=== PATIENT | male | born 1965 | race African-American/Black ===

== ENCOUNTER 2016-07-09 08:25 | Inpatient (IN) | payer OTHER ==
[2016-07-09 09:14] VITALS: BMI 23.6
--- NOTE | 2016-07-09 12:39 | HP ---
CIWA Score - CIWA Score Nausea/Vomitin-Int. Nausea w/Dry Heave Muscle Tremors: 4-Moderate,w/Arms Extend Anxiety: 4-Mod. Anxious/Guarded Agitation: 4-Moderately Restless Paroxysmal Sweats: 1-Minimal Palms Moist Orientation: 0-Oriented Tacttile Disturbances: 3-Moderate Itch/Numb/Burn Auditory Disturbances: 0-None Visual Disturbances: 0-None Headache: 1-Very Mild CIWA-Ar Total Score: 21 Admission ROS S - HPI Chief Complaint: DETOX TX FOR ALCOHOL DEPENDENCE Allergies/Adverse Reactions: Allergies Allergy/AdvReac Type Severity Reaction Status Date / Time sulfamethoxazole Allergy Severe Hives Verified 07/09/16 10:06 [From Bactrim] trimethoprim [From Bactrim] Allergy Severe Hives Verified 07/09/16 10:06 Fish Containing Products Allergy Swelling Verified 07/09/16 10:07 History of Present Illness: 51 Y/O AA/MALE WITH A HX OF ALCOHOL, COCAINE AND MARIJUANA DEPENDENCE SEEKING DETOX TX. Exam Limitations: No Limitations - Ebola screening Have you traveled outside of the country in the last 21 days: No Have you had contact with anyone from an Ebola affected area: No Have you been sick,other than usual withdrawal symptoms: No - Review of Systems Constitutional: Chills, Loss of Appetite, Night Sweats, Changes in sleep, Unintentional Wgt. Loss EENT: reports: Blurred Vision, Tearing (ALLERGIES HX--USES VISINE ALLERGY DROPS) , Nose Congestion Respiratory: reports: Shortness of Breath (HX ASTHMA), Wheezing Cardiac: reports: Lightheadedness GI: reports: Diarrhea, Nausea, Poor Appetite : reports: Frequency Musculoskeletal: reports: Back Pain, Joint Pain, Muscle Pain Integumentary: reports: Rash (STOMACH AND BACK- USES TRIAMCINOLONE OINTMENT) Neuro: reports: Headache, Numbness, Tingling, Tremors, Unsteady Gait, Dizziness Endocrine: reports: No Symptoms Reported Hematology: reports: Anemia Psychiatric: reports: Orientated x3, Anxious Other Systems: Reviewed and Negative Patient History - Patient Medical History Hx Anemia: Yes (NOT CURRENTLY ON MEDS) Hx Asthma: Yes (MDI) Hx Chronic Obstructive Pulmonary Disease (COPD): No Hx Cancer: No Hx Cardiac Disorders: Yes (CAD-stent x2; S/P [place] ) Hx Congestive Heart Failure: No Hx Hypertension: No Hx Hypercholesterolemia: No Hx Pacemaker: No HX Cerebrovascular Accident: No Hx Seizures: No Hx Dementia: No Hx Diabetes: No Hx Gastrointestinal Disorders: No Hx Liver Disease: No Hx Genitourinary Disorders: No Hx Sexually Transmitted Disorders: No Hx Renal Disease (ESRD): No Hx Thyroid Disease: No Hx Human Immunodeficiency Virus (HIV): Yes (12/2000; ON MED) Hx Hepatitis C: No Hx Depression: No Hx Suicide Attempt: No Hx Bipolar Disorder: No Hx Schizophrenia: No - Patient Surgical History Past Surgical History: Yes Hx Neurologic Surgery: No Hx Cataract Extraction: No Hx Cardiac Surgery: Yes (STENT X2) Hx Lung Surgery: No Hx Breast Surgery: No Hx Breast Biopsy: No Hx Abdominal Surgery: No Hx Appendectomy: No Hx Cholecystectomy: No Hx Genitourinary Surgery: No Hx Section: No Hx Orthopedic Surgery: No Anesthesia Reaction: No - PPD History Previous Implant?: Yes Documented Results: Negative w/proof Implanted On Prior [facility] Admission?: Yes Date: 01/09/15 Results: 0 mm PPD to be Administered?: Yes - Reproductive History Patient is a Female of Child Bearing Age (11 -55 yrs old): No (MALE) - Smoking Cessation Smoking history: Never smoked Have you smoked in the past 12 months: No Aproximately how many cigarettes per day: 0 Hx Chewing Tobacco Use: No Initiated information on smoking cessation: No - Substances Abused Crack Route: Smoking Frequency: 3-6 times per week Amount used: $75-100 Age of first use: 39 Date of Last Use: 07/08/16 Alcohol-vodka Route: Oral Frequency: Daily Amount used: 1 1/2 qts. Age of first use: 14 Date of Last Use: 07/08/16 Marijuana Route: Smoking Frequency: Daily Amount used: $10 Age of first use: 41 Date of Last Use: 07/08/16 Family Disease History - Family Disease History Family Disease History: Diabetes: Mother (CA survivor..alive), Heart Disease: Father (), Mother, Sister (HTN), CA: Mother Admission Physical Exam BHS - Vital Signs Vital Signs: Vital Signs - 24 hr 07/09/16 09:13 Temperature 97.5 F L Pulse Rate 90 Respiratory 20 Rate Blood Pressure 113/85 - Physical General Appearance: Yes: Moderate Distress, Irritable, Anxious HEENTM: Yes: EOMI, Normocephalic, DANIELE, Pharynx Normal Respiratory: Yes: Chest Non-Tender, Lungs Clear, Normal Breath Sounds, No Respiratory Distress Neck: Yes: Supple, Trachea in good position Breast: Yes: Breast Exam Deferred Cardiology: Yes: Regular Rhythm, Regular Rate, S1, S2 Abdominal: Yes: Normal Bowel Sounds, Non Tender, Flat, Soft Genitourinary: Yes: Other Back: Yes: Within Normal Limits Musculoskeletal: Yes: full range of Motion, Gait Steady 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, Fully Oriented, Alert, Motor Strength 5/5 Integumentary: Yes: Dry, Warm Lymphatic: Yes: Within Normal Limits - Diagnostic (1) Alcohol dependence with uncomplicated withdrawal Status: Acute (2) Acquired immune deficiency syndrome (AIDS) Status: Chronic Comment: since 2000 (3) Asthma Status: Chronic Qualifiers: Asthma severity: mild persistent Asthma complication type: uncomplicated Qualified Code(s): J45.30 - Mild persistent asthma, uncomplicated (4) Cocaine dependence Status: Chronic Qualifiers: Substance use status: uncomplicated Qualified Code(s): F14.20 - Cocaine dependence, uncomplicated (5) Dry skin dermatitis Status: Chronic Comment: hydrocortison - itching (6) Rash of back Status: Chronic (7) S/P angioplasty with stent Status: Chronic (8) Status post myocardial infarction Status: Resolved (9) Cannabis dependence Status: Acute (10) History of anemia Status: Acute Cleared for Admission [facility] - Detox or Rehab [facility] Level of Care: Medically Managed Detox Regimen/Protocol: Librium [facility] Breath Alcohol Content Breath Alcohol Content: 0 Urine Drug Screen - Results Drug Screen Negative: No Urine Drug Screen Results: THC-Marijuana, PORFIRIO-Cocaine
[2016-07-09] MEDS ORDERED: ACETAMINOPHEN 325 MG TABLET (FP) PO PRN (12:47)
[2016-07-09] MEDS ORDERED: LOPERAMIDE HCL 2 MG CAPSULE PO PRN (12:47)
[2016-07-09] MEDS ORDERED: chlordiazePOXIDE HCL 25 MG CAPSULE PO ONE (12:47)
[2016-07-09] MEDS ORDERED: diphenhydrAMINE HCL 50 MG CAPSULE PO PRN (12:47)
[2016-07-09] MEDS ORDERED: MAG HYDROX/AL HYDROX/SIMETH 30 ML UNIT-DOSE CUP PO PRN (12:47)
[2016-07-09] MEDS ORDERED: chlordiazePOXIDE HCL 25 MG CAPSULE PO PRN (12:47)
[2016-07-09] MEDS ORDERED: MAGNESIUM HYDROX 2400MG/30ML ORAL SUSPENSION 30 ML CUP PO PRN (12:47)
[2016-07-09] MEDS ORDERED: MENTHOL/PHENOL 1 EACH UD MM PRN (12:47)
[2016-07-09] MEDS ORDERED: guaiFENesin/D-METHORPHAN HB 10 ML UNIT-DOSE CUPS PO PRN (12:47)
[2016-07-09] MEDS ORDERED: MAGNESIUM CITRATE 300 ML BOTTLE PO PRN (12:47)
[2016-07-09] MEDS ORDERED: IBUPROFEN 400 MG TABLET (FP) PO PRN (12:47)
[2016-07-09] MEDS ORDERED: hydrOXYzine PAMOATE 25 MG CAPSULE (FP) PO PRN (12:47)
[2016-07-09] MEDS ORDERED: P-EPHED 60MG/TRIPROLIDI 2.5MG TABLET PO PRN (12:47)
[2016-07-09] MEDS ORDERED: ALBUTEROL SO4 6.7 GM HFA INHALER IH PRN (12:48)
[2016-07-09] MEDS: NAPHAZOLINE/PHENIRAMINE OPHTHALMIC 15 ML BOTTLE OU SCH ×2 (14:33→23:22)
[2016-07-09] MEDS: TRIAMCINOLONE ACET 0.1% CREAM 15 GM TUBE TP SCH ×2 (14:33→23:23)
[2016-07-09] MEDS: RITONAVIR/LOPINAVIR 50MG/200MG 1 COMBO TABLET PO SCH (17:25)
[2016-07-09] MEDS: chlordiazePOXIDE HCL 25 MG CAPSULE PO SCH ×2 (17:28→23:22)
[2016-07-09] MEDS ORDERED: PATIENT'S OWN MEDICATION (NON-FORMULARY) (Abacavir Sulfate/Lamivudine [Epzicom Tablet] 1 T PO SCH ×2 (18:00)
[2016-07-09] MEDS ORDERED: RITONAVIR/LOPINAVIR 50MG/200MG 1 COMBO TABLET PO SCH (18:00)
[2016-07-09 20:10] LABS: URINE APPEARANCE CLEAR; URINE BILIRUBIN NEGATIVE (NEGATIVE); URINE BLOOD NEGATIVE (NEGATIVE); URINE COLOR YELLOW; URINE GLUCOSE (UA) NEGATIVE (NEGATIVE); URINE KETONE NEGATIVE (NEGATIVE); URINE LEUK ESTERASE NEGATIVE (NEGATIVE); URINE NITRITE NEGATIVE (NEGATIVE); URINE UROBILINOGEN NEGATIVE E.U./dl (0.2-1.0)
[2016-07-09 20:13] LABS: URINE PROTEIN 2+ (NEGATIVE)
[2016-07-09 20:19] LABS: URINE BACTERIA RARE /hpf (NONE SEEN); URINE MUCUS MODERATE; URINE RBC 1 /hpf (0-3); URINE WBC 6 /hpf (3-5)
[2016-07-09] MEDS: THIAMINE HCL 100 MG TABLET (FP) PO SCH (23:22)
[2016-07-10] MEDS: chlordiazePOXIDE HCL 25 MG CAPSULE PO SCH ×4 (05:17→22:58)
[2016-07-10] MEDS: NAPHAZOLINE/PHENIRAMINE OPHTHALMIC 15 ML BOTTLE OU SCH ×3 (05:17→22:58)
[2016-07-10] MEDS ORDERED: ABACAVIR SULFATE 300 MG TABLET PO SCH (10:00)
[2016-07-10 10:04] LABS: MCH 24.8 pg (25.7-33.7); MCHC 31.3 g/dl (32.0-35.9); MEAN PLT VOLUME 9.3 fl (7.5-11.1); PLATELET COUNT 255 K/MM3 (134-434); RDW 13.6 % (11.9-15.9); WHITE BLOOD COUNT 2.7 K/mm3 (4.0-10.0)
[2016-07-10 10:20] LABS: ALBUMIN 3.6 g/dl (3.4-5.0); BILIRUBIN,TOTAL 0.3 mg/dL (0.2-1.0); CALCIUM 8.2 mg/dL (8.5-10.1); COCKROFT - GAULT 67.6; CREATININE 1.3 mg/dL (0.7-1.3); TOT PROT 8.2 g/dl (6.4-8.2)
[2016-07-10] MEDS: TRIAMCINOLONE ACET 0.1% CREAM 15 GM TUBE TP SCH ×2 (10:51→22:58)
[2016-07-10] MEDS: RITONAVIR/LOPINAVIR 50MG/200MG 1 COMBO TABLET PO SCH ×2 (10:52→17:06)
[2016-07-10] MEDS: PRENATAL VITAMINS W/ FOLIC ACID TABLET (FP) PO SCH (10:53)
[2016-07-10] MEDS: TENOFOVIR DISOPROXIL FUMARATE 300 MG TABLET PO SCH (10:53)
--- NOTE | 2016-07-10 16:17 | EKG ---
Test Reason : Blood Pressure : / mmHG Vent. Rate : 090 BPM Atrial Rate : 090 BPM P-R Int : 102 ms QRS Dur : 080 ms QT Int : 360 ms P-R-T Axes : 077 047 001 degrees QTc Int : 440 ms SINUS RHYTHM WITH SHORT GA OTHERWISE NORMAL ECG WHEN COMPARED WITH ECG OF 14-FEB-2015 12:10, NO SIGNIFICANT CHANGE WAS FOUND Confirmed by LACI MONTAÑO MD ([id number]) on 07/10/2016 4:16:53 PM Referred By: Jeremy Jay Confirmed By:LACI MONTAÑO MD
--- NOTE | 2016-07-10 16:22 | PN ---
S CIWA - CIWA Score Nausea/Vomitin Muscle Tremors: 4-Moderate,w/Arms Extend Anxiety: 4-Mod. Anxious/Guarded Agitation: 2 Paroxysmal Sweats: 3 Orientation: 0-Oriented Tacttile Disturbances: 0-None Auditory Disturbances: 1-Very Mild Visual Disturbances: 2-Mild Sensitivity Headache: 3-Moderate CIWA-Ar Total Score: 24 S Progress Note (SOAP) Subjective: Vomiting, Tremors, H/A, Body Aches, Diarrhea, Sweating. Objective: PT. A & O X 3, OBSERVED AMBULATING ON UNIT. 07/10/16 16:20 Vital Signs Temperature 98.4 F 07/10/16 14:30 Pulse Rate 98 H 07/10/16 14:30 Respiratory Rate 18 07/10/16 14:30 Blood Pressure 132/90 07/10/16 14:30 O2 Sat by Pulse Oximetry (%) Laboratory Last Values WBC 2.7 K/mm3 (4.0-10.0) L 07/10/16 06:00 RBC 4.63 M/mm3 (4.00-5.60) 07/10/16 06:00 Hgb 11.5 GM/dL (11.7-16.9) L 07/10/16 06:00 Hct 36.6 % (35.4-49) 07/10/16 06:00 MCV 79.0 fl (80-96) L 07/10/16 06:00 MCHC 31.3 g/dl (32.0-35.9) L 07/10/16 06:00 RDW 13.6 % (11.9-15.9) 07/10/16 06:00 Plt Count 255 K/MM3 (134-434) D 07/10/16 06:00 MPV 9.3 fl (7.5-11.1) 07/10/16 06:00 Sodium 141 mmol/L (136-145) 07/10/16 06:00 Potassium 3.1 mmol/L (3.5-5.1) L 07/10/16 06:00 Chloride 101 mmol/L (98-107) 07/10/16 06:00 Carbon Dioxide 32 mmol/L (21-32) 07/10/16 06:00 Anion Gap 8 (8-16) 07/10/16 06:00 BUN 9 mg/dL (7-18) 07/10/16 06:00 Creatinine 1.3 mg/dL (0.7-1.3) 07/10/16 06:00 Creat Clearance w eGFR 58.43 (>60) 07/10/16 06:00 Random Glucose 90 mg/dL (74-106) 07/10/16 06:00 Calcium 8.2 mg/dL (8.5-10.1) L 07/10/16 06:00 Total Bilirubin 0.3 mg/dL (0.2-1.0) 07/10/16 06:00 AST 35 U/L (15-37) D 07/10/16 06:00 ALT 22 U/L (12-78) D 07/10/16 06:00 Alkaline Phosphatase 102 U/L (45-117) 07/10/16 06:00 Total Protein 8.2 g/dl (6.4-8.2) 07/10/16 06:00 Albumin 3.6 g/dl (3.4-5.0) 07/10/16 06:00 Urine Color Yellow 07/09/16 13:00 Urine Appearance Clear 07/09/16 13:00 Urine pH 5.0 (5.0-8.0) 07/09/16 13:00 Ur Specific [place] 1.027 (1.001-1.035) 07/09/16 13:00 Urine Protein 2+ (NEGATIVE) H 07/09/16 13:00 Urine Glucose (UA) Negative (NEGATIVE) 07/09/16 13:00 Urine Ketones Negative (NEGATIVE) 07/09/16 13:00 Urine Blood Negative (NEGATIVE) 07/09/16 13:00 Urine Nitrite Negative (NEGATIVE) 07/09/16 13:00 Urine Bilirubin Negative (NEGATIVE) 07/09/16 13:00 Urine Urobilinogen Negative E.U./dl (0.2-1.0) 07/09/16 13:00 Ur Leukocyte Esterase Negative (NEGATIVE) 07/09/16 13:00 Urine RBC 1 /hpf (0-3) 07/09/16 13:00 Urine WBC 6 /hpf (3-5) 07/09/16 13:00 Ur Epithelial Cells Rare /hpf (FEW) 07/09/16 13:00 Urine Bacteria Rare /hpf (NONE SEEN) 07/09/16 13:00 Urine Mucus Moderate 07/09/16 13:00 RPR Titer Nonreactive (NONREACTIVE) 07/10/16 06:00 LABS NOTED. Assessment: 07/10/16 16:21 WITHDRAWAL SYMPTOMS. Plan: CONTINUE DETOX. K, 40 MEQ X 1 NOW AND THEN 20 MEQ BID AFTER. PRN ZOFRAN FOR NAUSEA. ADVISED PATIENT TO FOLLOW-UP WITH [facility] / REHAB MEDICAL PROVIDER AFTER DISCHARGE FROM DETOX FOR GENERAL MEDICAL ASSESSMENT AND FOR ABNORMAL ADMISSION LAB VALUES.
[2016-07-10] MEDS ORDERED: POTASSIUM CHLORIDE TABS 20 MEQ TABLET.ER (FP) PO ONE (16:23)
[2016-07-10] MEDS: ABACAVIR SULFATE 300 MG TABLET PO SCH (17:06)
[2016-07-10] MEDS: ONDANSETRON *ODT* 4 MG TABLET SL PRN (17:10)
[2016-07-10] MEDS: POTASSIUM CHLORIDE TABS 20 MEQ TABLET.ER (FP) PO SCH (22:58)
[2016-07-10] MEDS: THIAMINE HCL 100 MG TABLET (FP) PO SCH (22:59)
[2016-07-11] MEDS: chlordiazePOXIDE HCL 25 MG CAPSULE PO SCH ×2 (05:27→10:22)
[2016-07-11] MEDS: NAPHAZOLINE/PHENIRAMINE OPHTHALMIC 15 ML BOTTLE OU SCH ×3 (05:28→22:46)
[2016-07-11] MEDS: TRIAMCINOLONE ACET 0.1% CREAM 15 GM TUBE TP SCH ×2 (10:22→22:45)
[2016-07-11] MEDS: POTASSIUM CHLORIDE TABS 20 MEQ TABLET.ER (FP) PO SCH ×2 (10:22→22:46)
[2016-07-11] MEDS: PRENATAL VITAMINS W/ FOLIC ACID TABLET (FP) PO SCH (10:22)
[2016-07-11] MEDS: RITONAVIR/LOPINAVIR 50MG/200MG 1 COMBO TABLET PO SCH ×2 (10:23→18:02)
[2016-07-11] MEDS: TENOFOVIR DISOPROXIL FUMARATE 300 MG TABLET PO SCH (10:23)
[2016-07-11] MEDS: DAPSONE 100 MG TABLET PO SCH (13:32)
--- NOTE | 2016-07-11 15:56 | PN ---
[facility] CIWA - CIWA Score Nausea/Vomitin-Mild Nausea/No Vomiting Muscle Tremors: 4-Moderate,w/Arms Extend Anxiety: 4-Mod. Anxious/Guarded Agitation: 4-Moderately Restless Paroxysmal Sweats: No Perspiration Orientation: 0-Oriented Tacttile Disturbances: 1-Very Mild Itch/Numbness Auditory Disturbances: 0-None Visual Disturbances: 0-None Headache: 2-Mild (Diarrhea secondary to AIDS. Patient reports diarrhea started prior to admission. Stated last CD4 count couple months ago was <15. Allergic to bactrim and agreed to take dapsone.) CIWA-Ar Total Score: 16 [facility] Progress Note (SOAP) Subjective: Nausea, sweating, anxious, persistent diarrhea secondary to AIDS as per patient. Objective: 07/11/16 15:54 Last Vital Signs Temp Pulse Resp BP Pulse Ox 97.7 F 79 16 105/55 07/11/16 14:10 07/11/16 14:10 07/11/16 14:10 07/11/16 14:10 Laboratory Tests 07/09/16 07/10/16 07/10/16 13:00 06:00 06:00 WBC 2.7 L RBC 4.63 Hgb 11.5 L Hct 36.6 MCV 79.0 L MCHC 31.3 L RDW 13.6 Plt Count 255 D MPV 9.3 Sodium 141 Potassium 3.1 L Chloride 101 Carbon Dioxide 32 Anion Gap 8 BUN 9 Creatinine 1.3 Creat Clearance w eGFR 58.43 Random Glucose 90 Calcium 8.2 L Total Bilirubin 0.3 AST 35 D ALT 22 D Alkaline Phosphatase 102 Total Protein 8.2 Albumin 3.6 Urine Color Yellow Urine Appearance Clear Urine pH 5.0 Ur Specific [place] 1.027 Urine Protein 2+ H Urine Glucose (UA) Negative Urine Ketones Negative Urine Blood Negative Urine Nitrite Negative Urine Bilirubin Negative Urine Urobilinogen Negative Ur Leukocyte Esterase Negative Urine RBC 1 Urine WBC 6 Ur Epithelial Cells Rare Urine Bacteria Rare Urine Mucus Moderate RPR Titer 07/10/16 06:00 WBC RBC Hgb Hct MCV MCHC RDW Plt Count MPV Sodium Potassium Chloride Carbon Dioxide Anion Gap BUN Creatinine Creat Clearance w eGFR Random Glucose Calcium Total Bilirubin AST ALT Alkaline Phosphatase Total Protein Albumin Urine Color Urine Appearance Urine pH Ur Specific [place] Urine Protein Urine Glucose (UA) Urine Ketones Urine Blood Urine Nitrite Urine Bilirubin Urine Urobilinogen Ur Leukocyte Esterase Urine RBC Urine WBC Ur Epithelial Cells Urine Bacteria Urine Mucus RPR Titer Nonreactive Labs noted: serum creatinine 1.3, K 3.1; UA: 2+ protein Patient with AIDS, stated noncompliant with HAART and just started HAART Assessment: 07/11/16 15:55 Withdrawal symptoms c/o Persistent 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 Lovett at private practice in [place] on [address] in 1-2 weeks post discharge Hypokalemia secondary to persistent diarrhea: continue K Dur PO supplement, repeat BMP in AM Proteinuria: encouraged to drink lots of water, repeat UA Pre renal azotemia: encouraged to drink lots of water, repeat BMP
[2016-07-11] MEDS: ABACAVIR SULFATE 300 MG TABLET PO SCH (17:55)
[2016-07-11] MEDS: chlordiazePOXIDE 5 MG CAPSULE PO SCH ×2 (18:03→22:46)
[2016-07-11] MEDS: THIAMINE HCL 100 MG TABLET (FP) PO SCH (22:46)
[2016-07-12] MEDS: chlordiazePOXIDE 5 MG CAPSULE PO SCH ×2 (05:16→10:40)
[2016-07-12] MEDS: NAPHAZOLINE/PHENIRAMINE OPHTHALMIC 15 ML BOTTLE OU SCH ×3 (05:16→23:17)
[2016-07-12] MEDS: TENOFOVIR DISOPROXIL FUMARATE 300 MG TABLET PO SCH (10:40)
[2016-07-12] MEDS: PRENATAL VITAMINS W/ FOLIC ACID TABLET (FP) PO SCH (10:40)
[2016-07-12] MEDS: RITONAVIR/LOPINAVIR 50MG/200MG 1 COMBO TABLET PO SCH ×2 (10:41→17:55)
[2016-07-12] MEDS: TRIAMCINOLONE ACET 0.1% CREAM 15 GM TUBE TP SCH ×2 (10:41→23:17)
[2016-07-12] MEDS: POTASSIUM CHLORIDE TABS 20 MEQ TABLET.ER (FP) PO SCH ×2 (10:41→23:17)
--- NOTE | 2016-07-12 10:55 | PN ---
[facility] Progress Note (SOAP) Subjective: shakes, sweats, soaked , jt aches Objective: 07/12/16 10:51 Vital Signs Temperature 100.4 F H 07/12/16 09:50 Pulse Rate 90 07/12/16 09:50 Respiratory Rate 18 07/12/16 09:50 Blood Pressure 116/78 07/12/16 09:50 O2 Sat by Pulse Oximetry (%) Laboratory Tests 07/09/16 07/10/16 07/10/16 13:00 06:00 06:00 WBC 2.7 L RBC 4.63 Hgb 11.5 L Hct 36.6 MCV 79.0 L MCHC 31.3 L RDW 13.6 Plt Count 255 D MPV 9.3 Sodium 141 Potassium 3.1 L Chloride 101 Carbon Dioxide 32 Anion Gap 8 BUN 9 Creatinine 1.3 Creat Clearance w eGFR 58.43 Random Glucose 90 Calcium 8.2 L Total Bilirubin 0.3 AST 35 D ALT 22 D Alkaline Phosphatase 102 Total Protein 8.2 Albumin 3.6 Urine Color Yellow Urine Appearance Clear Urine pH 5.0 Ur Specific [place] 1.027 Urine Protein 2+ H Urine Glucose (UA) Negative Urine Ketones Negative Urine Blood Negative Urine Nitrite Negative Urine Bilirubin Negative Urine Urobilinogen Negative Ur Leukocyte Esterase Negative Urine RBC 1 Urine WBC 6 Ur Epithelial Cells Rare Urine Bacteria Rare Urine Mucus Moderate RPR Titer 07/10/16 06:00 WBC RBC Hgb Hct MCV MCHC RDW Plt Count MPV Sodium Potassium Chloride Carbon Dioxide Anion Gap BUN Creatinine Creat Clearance w eGFR Random Glucose Calcium Total Bilirubin AST ALT Alkaline Phosphatase Total Protein Albumin Urine Color Urine Appearance Urine pH Ur Specific [place] Urine Protein Urine Glucose (UA) Urine Ketones Urine Blood Urine Nitrite Urine Bilirubin Urine Urobilinogen Ur Leukocyte Esterase Urine RBC Urine WBC Ur Epithelial Cells Urine Bacteria Urine Mucus RPR Titer Nonreactive pt aox3 in nad ambulating 07/12/16 10:52 Assessment: 07/12/16 10:52 withdrawal sx's hiv Plan: cont. detox increase fluids f/up pending labs d/c in am
[2016-07-12] MEDS: ONDANSETRON *ODT* 4 MG TABLET SL PRN (11:28)
[2016-07-12] MEDS: DAPSONE 100 MG TABLET PO SCH (13:06)
[2016-07-12 17:06] LABS: CALCIUM 8.4 mg/dL (8.5-10.1)
[2016-07-12 17:07] LABS: COCKROFT - GAULT 58.58; CREATININE 1.5 mg/dL (0.7-1.3)
[2016-07-12] MEDS: chlordiazePOXIDE HCL 10 MG CAPSULE PO SCH ×2 (17:54→23:18)
[2016-07-12] MEDS: ABACAVIR SULFATE 300 MG TABLET PO SCH (17:55)
[2016-07-12 18:19] LABS: URINE APPEARANCE CLEAR; URINE BILIRUBIN NEGATIVE (NEGATIVE); URINE BLOOD NEGATIVE (NEGATIVE); URINE COLOR YELLOW; URINE GLUCOSE (UA) NEGATIVE (NEGATIVE); URINE KETONE NEGATIVE (NEGATIVE); URINE LEUK ESTERASE NEGATIVE (NEGATIVE); URINE NITRITE NEGATIVE (NEGATIVE); URINE PROTEIN NEGATIVE (NEGATIVE); URINE UROBILINOGEN NEGATIVE E.U./dl (0.2-1.0)
[2016-07-12] MEDS: THIAMINE HCL 100 MG TABLET (FP) PO SCH (23:18)
[2016-07-13] MEDS: chlordiazePOXIDE HCL 10 MG CAPSULE PO SCH ×2 (05:50→10:25)
[2016-07-13] MEDS: NAPHAZOLINE/PHENIRAMINE OPHTHALMIC 15 ML BOTTLE OU SCH (05:51)
--- NOTE | 2016-07-13 08:29 | DS ---
[facility] Detox Discharge Summary Admission Date: 07/09/16 Discharge Date: 07/13/16 - History Present History: Alcohol Dependence, Cannabis Dependence, Cocaine Dependence - Physical Exam Results Vital Signs: Vital Signs Temperature 98.1 F 07/13/16 06:00 Pulse Rate 83 07/13/16 06:00 Respiratory Rate 18 07/13/16 06:00 Blood Pressure 118/77 07/13/16 06:00 O2 Sat by Pulse Oximetry (%) - Treatment Hospital Course: Detox Protocol Followed, Detoxed Safely, Responded well, Discharged Condition Good - Medication Discharge Medications: Ambulatory Orders Abacavir Sulfate/Lamivudine [Epzicom Tablet] 1 tablet PO DAILY #60 tablet Albuterol Sulfate Inhaler - [Ventolin HFA Inhaler -] 2 inh PO Q4H PRN #1 inhaler 06/09/15 Tenofovir Disoproxil Fumarate [Viread] 300 mg PO DAILY #30 tablet 06/09/15 Triamcinolone 0.1% Cream [Aristocort 0.1% Cream -] 1 applic TP BID #1 tube 06/08 Ritonavir/Lopinavir [Kaletra 200Mg/50Mg -] 2 tablet PO BID 07/09/16 - Diagnosis (1) Alcohol dependence with uncomplicated withdrawal Current Visit: Yes Status: Acute (2) Acquired immune deficiency syndrome (AIDS) Current Visit: Yes Status: Chronic (3) Asthma Current Visit: Yes Status: Chronic Qualifiers: Asthma severity: mild persistent Asthma complication type: uncomplicated Qualified Code(s): J45.30 - Mild persistent asthma, uncomplicated (4) Cannabis dependence Current Visit: Yes Status: Chronic (5) Cocaine dependence Current Visit: Yes Status: Chronic Qualifiers: Substance use status: uncomplicated Qualified Code(s): F14.20 - Cocaine dependence, uncomplicated (6) Dry skin dermatitis Current Visit: No Status: Chronic (7) Depression (emotion) Current Visit: Yes Status: Suspected Qualifiers: Depression Type: dysthymia Qualified Code(s): F34.1 - Dysthymic disorder - AMA Did Patient Leave Against Medical Advice: No
[2016-07-13 09:52] VITALS: BP 133/80; PULSE 87; TEMP 96.3
[2016-07-13] MEDS: RITONAVIR/LOPINAVIR 50MG/200MG 1 COMBO TABLET PO SCH (10:23)
[2016-07-13] MEDS: POTASSIUM CHLORIDE TABS 20 MEQ TABLET.ER (FP) PO SCH (10:24)
[2016-07-13] MEDS: PRENATAL VITAMINS W/ FOLIC ACID TABLET (FP) PO SCH (10:24)
[2016-07-13] MEDS: DAPSONE 100 MG TABLET PO SCH (10:24)
[2016-07-13] MEDS: TENOFOVIR DISOPROXIL FUMARATE 300 MG TABLET PO SCH (10:24)
[2016-07-13 14:15] LABS: % CD 3 POS. LYMPH. 59.3 % (57.5-86.2); % CD 4 POS LYM 1.6 % (30.8-58.5); %CD3+CD4+CD8+ 0.3 % (Not Estab.); %CD3+CD4+CD8- 1.3 % (Not Estab.); %CD3+CD4-CD8+ 51.7 % (Not Estab.); ABSO. CD 3 712 /uL (622-2402); ABSOLUTE CD 4 HELPER 19 /uL (359-1519); AbsCD3+CD4+CD8+ 4 /uL (Not Estab.); AbsCD3+CD4-CD8+ 620 /uL (Not Estab.); AbsCD3+CD4-CD8- 72 /uL (Not Estab.); CD4/CD8 0.03 (0.92-3.72); CD4/CD8 NYSDOH RATIO 0.03 (Not Estab.); WHITE BLOOD COUNT 5.3 x10E3/uL (3.4-10.8)
== END 2016-07-13 11:07 | disposition home or self-care (01) | DRG 896 ==
LOC: YASAS 08:25 → Y6N 11:29
PROVIDERS: ADMIT Internal Medicine; ATTEND Internal Medicine
PROC: HZ2ZZZZ Detoxification Services for Substance Abuse Treatment (ICD-10-PCS; principal; 2016-07-13)
DX: F10.230 Alcohol dependence with withdrawal, uncomplicated (principal); B20 Human immunodeficiency virus [HIV] disease; F14.20 Cocaine dependence, uncomplicated; F12.20 Cannabis dependence, uncomplicated; F34.1 Dysthymic disorder; L85.3 Xerosis cutis; J45.30 Mild persistent asthma, uncomplicated; I25.2 Old myocardial infarction; Z98.61 Coronary angioplasty status
CPT/HCPCS: 36415; 71020-TC; 74020-TC; 80048; 80053; 81003; 81015; 85027; 86359; 86360; 86593; 93005; 93010

== ENCOUNTER 2017-05-26 08:13 | Inpatient (IN) | payer OTHER ==
[2017-05-26 09:19] VITALS: BMI 25.2
--- NOTE | 2017-05-26 10:26 | HP ---
CIWA Score - CIWA Score Nausea/Vomitin Muscle Tremors: 3 Anxiety: 3 Agitation: 3 Paroxysmal Sweats: 3 Orientation: 0-Oriented Tacttile Disturbances: 2-Mild Itch/Numbness/Burn Auditory Disturbances: 0-None Visual Disturbances: 0-None Headache: 0-None Present CIWA-Ar Total Score: 17 Admission [facility] Chief Complaint: alcohol and heroin withdrawal sx Allergies/Adverse Reactions: Allergies Allergy/AdvReac Type Severity Reaction Status Date / Time sulfamethoxazole Allergy Severe Hives Verified 05/26/17 09:25 [From Bactrim] trimethoprim [From Bactrim] Allergy Severe Hives Verified 05/26/17 09:25 Fish Containing Products Allergy Swelling Verified 05/26/17 09:25 History of Present Illness: 51 yo m w h/o OUD but has ot used for several days and utox neg but c/o opioid withdrawal and chronic alcholism, marijuana,cocaine and methamphetaimine dependence requesting inpatient detoxification from alcohol and heorin. No h/o seizures, no dts, no suicidal ideations at this time, thirsty PMHX depression, asthma, anxiety and insomnia. agrees with sympotmatic control of opioid withdrawal and libirum for alcohol detox Exam Limitations: No Limitations - Ebola screening Have you traveled outside of the country in the last 21 days: No (N) Have you had contact with anyone from an Ebola affected area: No Have you been sick,other than usual withdrawal symptoms: No Do you have a fever: No - Review of Systems Constitutional: Chills, Diaphoresis, Night Sweats, Changes in sleep, Weight Stable EENT: reports: Tearing, Nose Congestion Respiratory: reports: No Symptoms reported, Wheezing (asthma) GI: reports: Diarrhea, Nausea, Poor Appetite, Poor Fluid Intake, Vomiting, Indigestion, Abdominal cramping : reports: No Symptoms Reported Musculoskeletal: reports: Joint Pain, Muscle Pain Integumentary: reports: Flushing, Sweating Neuro: reports: Headache, Numbness, Tingling, Tremors Endocrine: reports: Increased Thirst Hematology: reports: No Symptoms Reported Psychiatric: reports: Judgement Intact, Mood/Affect Appropiate, Orientated x3, Anxious, Depressed Other Systems: Reviewed and Negative Patient History - Patient Medical History Hx Anemia: Yes (NOT CURRENTLY ON MEDS) Hx Asthma: Yes (Pt is on MDI.) Hx Chronic Obstructive Pulmonary Disease (COPD): No Hx Cancer: No Hx Cardiac Disorders: Yes (CAD-stent x2; S/P [place] ) Hx Congestive Heart Failure: No Hx Hypertension: No Hx Hypercholesterolemia: No Hx Pacemaker: No HX Cerebrovascular Accident: No Hx Seizures: No Hx Dementia: No Hx Diabetes: No Hx Gastrointestinal Disorders: No Hx Liver Disease: No Hx Genitourinary Disorders: No Hx Sexually Transmitted Disorders: No Hx Renal Disease (ESRD): No Hx Thyroid Disease: No Hx Human Immunodeficiency Virus (HIV): Yes (12/2000; ON MED) Hx Hepatitis C: No Hx Depression: No Hx Suicide Attempt: No Hx Bipolar Disorder: No Hx Schizophrenia: No - Patient Surgical History Past Surgical History: Yes Hx Neurologic Surgery: No Hx Cataract Extraction: No Hx Cardiac Surgery: Yes (STENT X2 2009 and 2011) Hx Lung Surgery: No Hx Breast Surgery: No Hx Breast Biopsy: No Hx Abdominal Surgery: No Hx Appendectomy: No Hx Cholecystectomy: No Hx Genitourinary Surgery: No Hx Section: No Hx Orthopedic Surgery: No Hx Hysterectomy: No Anesthesia Reaction: No - PPD History Previous Implant?: Yes Documented Results: Negative w/o proof Implanted On Prior R Admission?: Yes Date: 01/09/15 Results: 0 mm PPD to be Administered?: Yes - Reproductive History Patient is a Female of Child Bearing Age (11 -55 yrs old): No Patient : No - Smoking Cessation Smoking history: Never smoked Have you smoked in the past 12 months: No Aproximately how many cigarettes per day: 0 Hx Chewing Tobacco Use: No Initiated information on smoking cessation: No 'Breaking Loose' booklet given: 05/26/17 - Substance & Tx. History Hx Alcohol Use: Yes Hx Substance Use: Yes Substance Use Type: Alcohol, Cocaine, Heroin, Marijuana, Opiates Hx Substance Use Treatment: Yes ([facility] in past) - Substances Abused Alcohol Route: Oral Frequency: Daily Amount used: 1-2 pints vodka Age of first use: 14 Date of Last Use: 05/26/17 Cocaine Route: Inhalation Frequency: 1-2 times per week Amount used: $25 and up Age of first use: 39 Date of Last Use: 05/24/17 Marijuana/Hashish Route: Smoking Frequency: Daily Amount used: 2 blunts Age of first use: 14 Date of Last Use: 05/26/17 percocet Route: Oral Frequency: Daily Amount used: 3-4 10/325mg Age of first use: 49 Date of Last Use: 05/24/17 Family Disease History - Family Disease History Family Disease History: Diabetes: Mother (CA survivor..alive), Heart Disease: Father (), Mother, Sister (HTN), [place]: Mother Admission Physical Exam [facility] - Vital Signs Vital Signs: Vital Signs - 24 hr 05/26/17 09:15 Temperature 98.5 F Pulse Rate 80 Respiratory 16 Rate Blood Pressure 122/76 - Physical General Appearance: Yes: Nourished, Appropriately Dressed, Disheveled, Mild Distress, Thin, Tremorous, Irritable, Sweating, Anxious HEENTM: Yes: EOMI, Hearing grossly Normal, Normocephalic, Normal Voice, DANIELE, Pharynx Normal, Rhinorrhea, Other (lesion/foliculitis, cyst left eyelid noted, no infection) Respiratory: Yes: Within Normal Limits, Chest Non-Tender, Lungs Clear, Normal Breath Sounds, No Respiratory Distress, No Accessory Muscle Use Neck: Yes: Within Normal Limits, No masses,lesions,Nodules, Supple, Trachea in good position Breast: Yes: Breast Exam Deferred Cardiology: Yes: Within Normal Limits, Regular Rhythm, Regular Rate, S1, S2 Abdominal: Yes: Normal Bowel Sounds, Non Tender, Soft, Increased Bowel Sounds, Protuberent, Other (rash on belly responds to steroid cream in past) Genitourinary: Yes: Within Normal Limits Back: Yes: Within Normal Limits, Normal Inspection Musculoskeletal: Yes: full range of Motion, Gait Steady, Pelvis Stable, Back pain, Muscle Pain Extremities: Yes: Normal Capillary Refill, Normal Inspection, Normal Range of Motion, Non-Tender, Tremors 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, Fully Oriented, Alert, Motor Strength 5/5, Normal Response Integumentary: Yes: Within Normal Limits, Normal Color, Dry, Warm Lymphatic: Yes: Within Normal Limits - Addiitonal Findings: withdrawal sx - Diagnostic (1) Alcohol dependence with uncomplicated withdrawal Current Visit: No Status: Acute (2) Cannabis dependence Current Visit: No Status: Acute (3) History of anemia Current Visit: No Status: Acute (4) Acquired immune deficiency syndrome (AIDS) Current Visit: No Status: Chronic Comment: since 2000 (5) Asthma Current Visit: No Status: Chronic Qualifiers: Asthma severity: mild persistent Asthma complication type: uncomplicated (6) Cocaine dependence Current Visit: No Status: Chronic Qualifiers: Substance use status: uncomplicated Qualified Code(s): F14.20 - Cocaine dependence, uncomplicated (7) Dry skin dermatitis Current Visit: No Status: Chronic Comment: hydrocortison - itching (8) S/P angioplasty with stent Current Visit: No Status: Chronic (9) Depression (emotion) Current Visit: No Status: Suspected Qualifiers: Depression Type: dysthymia Qualified Code(s): F34.1 - Dysthymic disorder Cleared for Admission [facility] - Detox or Rehab [facility] Level of Care: Medically Managed Detox Regimen/Protocol: Librium [facility] Breath Alcohol Content Breath Alcohol Content: 0.018 Urine Drug Screen - Results Drug Screen Negative: No Urine Drug Screen Results: THC-Marijuana, PORFIRIO-Cocaine, MET-Methamphetamine
[2017-05-26] MEDS ORDERED: MAGNESIUM CITRATE 300 ML BOTTLE PO PRN (10:27)
[2017-05-26] MEDS ORDERED: P-EPHED 60MG/TRIPROLIDI 2.5MG TABLET PO PRN (10:27)
[2017-05-26] MEDS ORDERED: guaiFENesin/D-METHORPHAN HB 10 ML UNIT-DOSE CUPS PO PRN (10:27)
[2017-05-26] MEDS ORDERED: chlordiazePOXIDE HCL 25 MG CAPSULE PO PRN (10:27)
[2017-05-26] MEDS ORDERED: hydrOXYzine PAMOATE 50 MG CAPSULE (FP) PO PRN (10:27)
[2017-05-26] MEDS ORDERED: IBUPROFEN 400 MG TABLET (FP) PO PRN (10:27)
[2017-05-26] MEDS ORDERED: MAGNESIUM HYDROX 2400MG/30ML ORAL SUSPENSION 30 ML CUP PO PRN (10:27)
[2017-05-26] MEDS ORDERED: MENTHOL/PHENOL 1 EACH UD MM PRN (10:27)
[2017-05-26] MEDS ORDERED: LOPERAMIDE HCL 2 MG CAPSULE PO PRN (10:27)
[2017-05-26] MEDS ORDERED: MAG HYDROX/AL HYDROX/SIMETH 30 ML UNIT-DOSE CUP PO PRN (10:27)
[2017-05-26] MEDS ORDERED: ACETAMINOPHEN 325 MG TABLET (FP) PO PRN (10:27)
[2017-05-26] MEDS ORDERED: ALBUTEROL SO4 18 GM HFA INHALER IH PRN (10:29)
[2017-05-26] MEDS ORDERED: chlordiazePOXIDE HCL 25 MG CAPSULE PO ONE (11:13)
[2017-05-26] MEDS: CLOTRIMAZOLE/BETAMET DIPROP TOPICAL CREAM 45 GM TUBE TP SCH ×2 (11:48→22:24)
--- NOTE | 2017-05-26 11:48 | CONSULT ---
[facility] Psychiatric Consult - Data Date of interview: 05/25/17 Admission source: [facility] Identifying data: This is 51 years old male with h/o OUD but has ot used for several days and utox neg but c/o opioid withdrawal and chronic alcholism, marijuana,cocaine and methamphetaimine dependence requesting inpatient detoxification from alcohol and heorin. No h/o seizures, no dts, no suicidal ideations at this time, thirsty PMHX depression, asthma, anxiety and insomnia. agrees with sympotmatic control of opioid withdrawal and libirum for alcohol detox
--- NOTE | 2017-05-26 11:50 | CONSULT ---
[facility] Psychiatric Consult - Data Date of interview: 05/26/17 Admission source: [facility] Identifying data: This is 51 years old male. single, unemp[loyed , living alone , with ni9 history psychiatric hospiotalizations, with history opioid withdrawal and chronic alcholism, marijuana,cocaine and methamphetaimine dependence requesting inpatient detoxification from alcohol and heroin.. Substance Abuse History: Urine Drug Screen Results: THC-Marijuana, PORFIRIO-Cocaine, MET-Methamphetamine. - Smoking Cessation. Smoking history: Never smoked. Have you smoked in the past 12 months: No. Aproximately how many cigarettes per day: 0. Hx Chewing Tobacco Use: No. Initiated information on smoking cessation: No. 'Breaking Loose' booklet given: 05/26/17. - Substance & Tx. History. Hx Alcohol Use: Yes. Hx Substance Use: Yes. Substance Use Type: Alcohol, Cocaine, Heroin, Marijuana, Opiates. Hx Substance Use Treatment: Yes ( [facility] detox in past). - Substances Abused. Alcohol. Route: Oral. Frequency: Daily. Amount used: 1-2 pints vodka. Age of first use: 14. Date of Last Use: 05/26/17. Cocaine. Route: Inhalation. Frequency: 1-2 times per week. Amount used: $25 and up. Age of first use: 39. Date of Last Use: . Marijuana/Hashish. Route: Smoking. Frequency: Daily. Amount used : 2 blunts. Age of first use: 14. Date of Last Use: 05/26/17. percocet. Route: Oral. Frequency: Daily. Amount used: 3-4 10/325mg. Age of first use: 49. Date of Last Use: 05/24/17 Medical History: Anemia, AIDS, Asthma, Cardiac Stents 2009, 2011, Psychiatric History: Denies past psychiatric history Physical/Sexual Abuse/Trauma History: Denies Additional Comment: Urine Drug Screen Results: THC-Marijuana, PORFIRIO-Cocaine, MET- Methamphetamine. Observation. Detox Unit Care Protocol Mental Status Exam - Mental Status Exam Alert and Oriented to: Person Cognitive Function: Fair Patient Appearance: Well Groomed Mood: Apprehensive Affect: Mood Congruent Patient Behavior: Cooperative Speech Pattern: Appropriate Voice Loudness: Normal Thought Disorder: Being Controlled Hallucinations: Denies Suicidal Ideation: Denies Homicidal Ideation: Denies Insight/Judgement: Fair Sleep: Difficulty falling asleep Appetite: Fair Muscle strength/Tone: Normal Gait/Station: Normal Additional Comments: Observation. Detox Unit Care Protocol Psychiatric Findings - Problem List ([place] 1, 2,3) (1) Drug-induced mood disorder Current Visit: Yes Status: Acute (2) Alcohol dependence with uncomplicated withdrawal Current Visit: No Status: Acute (3) Cannabis dependence Current Visit: No Status: Acute (4) Cocaine dependence Current Visit: No Status: Chronic Qualifiers: Substance use status: uncomplicated Qualified Code(s): F14.20 - Cocaine dependence, uncomplicated - Initial Treatment Plan Initial Treatment Plan: Observation. Detox Unit Care Protocol
[2017-05-26 14:35] LABS: HEMATOCRIT 39.8 % (35.4-49); HEMOGLOBIN 12.3 GM/dL (11.7-16.9); MCH 25.1 pg (25.7-33.7); MEAN CELL VOLUME 81.1 fl (80-96); MEAN PLT VOLUME 9.8 fl (7.5-11.1); PLATELET COUNT 213 K/MM3 (134-434); RBC 4.91 M/mm3 (4.00-5.60); RDW 14.7 % (11.9-15.9); WHITE BLOOD COUNT 3.9 K/mm3 (4.0-10.0)
[2017-05-26 14:55] LABS: CHLORIDE 103 mmol/L (98-107); POTASSIUM 4.1 mmol/L (3.5-5.1); SODIUM 140 mmol/L (136-145)
[2017-05-26 15:04] LABS: ALBUMIN 3.7 g/dl (3.4-5.0); ALK PHOS 83 U/L (45-117); ANION GAP 11 (8-16); BILIRUBIN,TOTAL 0.3 mg/dL (0.2-1.0); BLOOD UREA NITROGEN 11 mg/dL (7-18); CALCIUM 9.3 mg/dL (8.5-10.1); CO2 26 mmol/L (21-32); CREATININE 1.3 mg/dL (0.7-1.3); GLUCOSE,RANDOM 81 mg/dL (74-106); SGOT/AST 25 U/L (15-37); SGPT/ALT 26 U/L (12-78); TOT PROT 8.1 g/dl (6.4-8.2)
--- NOTE | 2017-05-26 16:11 | EKG ---
Test Reason : Blood Pressure : / mmHG Vent. Rate : 093 BPM Atrial Rate : 093 BPM P-R Int : 114 ms QRS Dur : 076 ms QT Int : 336 ms P-R-T Axes : 078 053 -20 degrees QTc Int : 417 ms NORMAL SINUS RHYTHM MINIMAL VOLTAGE CRITERIA FOR LVH, MAY BE NORMAL VARIANT ABNORMAL QRS-T ANGLE, CONSIDER PRIMARY T WAVE ABNORMALITY ABNORMAL ECG WHEN COMPARED WITH ECG OF 09-JUL-2016 12:26, NO SIGNIFICANT CHANGE WAS FOUND Confirmed by BENNIE YU MD ([id number]) on 05/26/2017 4:11:08 PM Referred By: Confirmed By:BENNIE YU MD
[2017-05-26] MEDS: chlordiazePOXIDE HCL 25 MG CAPSULE PO SCH ×2 (17:22→22:24)
[2017-05-26 18:12] LABS: URINE APPEARANCE CLEAR; URINE BILIRUBIN NEGATIVE (NEGATIVE); URINE BLOOD NEGATIVE (NEGATIVE); URINE COLOR YELLOW; URINE GLUCOSE (UA) NEGATIVE (NEGATIVE); URINE KETONE NEGATIVE (NEGATIVE); URINE LEUK ESTERASE NEGATIVE (NEGATIVE); URINE NITRITE NEGATIVE (NEGATIVE); URINE PROTEIN NEGATIVE (NEGATIVE); URINE UROBILINOGEN NEGATIVE mg/dL (0.2-1.0)
[2017-05-26] MEDS: THIAMINE HCL 100 MG TABLET (FP) PO SCH (22:24)
[2017-05-26] MEDS: cloNIDine HCL 0.1 MG TABLET PO PRN (22:26)
[2017-05-27] MEDS: chlordiazePOXIDE HCL 25 MG CAPSULE PO SCH ×4 (05:50→22:16)
[2017-05-27] MEDS ORDERED: DARUNAVIR 800 MG/COBICISTAT 150MG TABLET PO SCH (08:00)
[2017-05-27] MEDS ORDERED: EMTRICITABINE/TENOFOV ALAFENAM (DESCOVY) TABLET PO SCH (10:00)
[2017-05-27] MEDS ORDERED: DAPSONE 100 MG TABLET PO SCH (10:00)
[2017-05-27] MEDS: PRENATAL VITAMINS W/ FOLIC ACID TABLET (FP) PO SCH (10:56)
[2017-05-27] MEDS: CLOTRIMAZOLE/BETAMET DIPROP TOPICAL CREAM 45 GM TUBE TP SCH ×2 (10:57→22:15)
--- NOTE | 2017-05-27 11:42 | PN ---
S CIWA - CIWA Score Nausea/Vomitin Muscle Tremors: 3 Anxiety: 3 Agitation: 2 Paroxysmal Sweats: 1-Minimal Palms Moist Orientation: 0-Oriented Tacttile Disturbances: 1-Very Mild Itch/Numbness Auditory Disturbances: 1-Very Mild Visual Disturbances: 0-None Headache: 2-Mild CIWA-Ar Total Score: 16 BHS Progress Note (SOAP) Subjective: ALERT,IRRITABLE,ANXIOUS,INTERRUPTED SLEEP,TREMOR Objective: 05/27/17 11:40 Vital Signs Temperature 98.1 F 05/27/17 10:14 Pulse Rate 94 H 05/27/17 10:14 Respiratory Rate 18 05/27/17 10:14 Blood Pressure 111/77 05/27/17 10:14 O2 Sat by Pulse Oximetry (%) EKG NSR,93/MIN NO CHEST PAIN,NO SOB,NO DIZZINESS Laboratory Last Values WBC 3.9 K/mm3 (4.0-10.0) L D 05/26/17 10:00 RBC 4.91 M/mm3 (4.00-5.60) 05/26/17 10:00 Hgb 12.3 GM/dL (11.7-16.9) 05/26/17 10:00 Hct 39.8 % (35.4-49) 05/26/17 10:00 MCV 81.1 fl (80-96) 05/26/17 10:00 MCH 25.1 pg (25.7-33.7) L 05/26/17 10:00 MCHC 31.0 g/dl (32.0-35.9) L 05/26/17 10:00 RDW 14.7 % (11.9-15.9) 05/26/17 10:00 Plt Count 213 K/MM3 (134-434) 05/26/17 10:00 MPV 9.8 fl (7.5-11.1) 05/26/17 10:00 Sodium 140 mmol/L (136-145) 05/26/17 10:00 Potassium 4.1 mmol/L (3.5-5.1) 05/26/17 10:00 Chloride 103 mmol/L (98-107) 05/26/17 10:00 Carbon Dioxide 26 mmol/L (21-32) 05/26/17 10:00 Anion Gap 11 (8-16) 05/26/17 10:00 BUN 11 mg/dL (7-18) 05/26/17 10:00 Creatinine 1.3 mg/dL (0.7-1.3) 05/26/17 10:00 Creat Clearance w eGFR 58.43 (>60) 05/26/17 10:00 Random Glucose 81 mg/dL (74-106) 05/26/17 10:00 Calcium 9.3 mg/dL (8.5-10.1) 05/26/17 10:00 Total Bilirubin 0.3 mg/dL (0.2-1.0) 05/26/17 10:00 AST 25 U/L (15-37) D 05/26/17 10:00 ALT 26 U/L (12-78) 05/26/17 10:00 Alkaline Phosphatase 83 U/L (45-117) 05/26/17 10:00 Total Protein 8.1 g/dl (6.4-8.2) 05/26/17 10:00 Albumin 3.7 g/dl (3.4-5.0) 05/26/17 10:00 Urine Color Yellow 05/26/17 15:38 Urine Appearance Clear 05/26/17 15:38 Urine pH 5.0 (5.0-8.0) 05/26/17 15:38 Ur Specific [place] 1.021 (1.001-1.035) 05/26/17 15:38 Urine Protein Negative (NEGATIVE) 05/26/17 15:38 Urine Glucose (UA) Negative (NEGATIVE) 05/26/17 15:38 Urine Ketones Negative (NEGATIVE) 05/26/17 15:38 Urine Blood Negative (NEGATIVE) 05/26/17 15:38 Urine Nitrite Negative (NEGATIVE) 05/26/17 15:38 Urine Bilirubin Negative (NEGATIVE) 05/26/17 15:38 Urine Urobilinogen Negative mg/dL (0.2-1.0) 05/26/17 15:38 Ur Leukocyte Esterase Negative (NEGATIVE) 05/26/17 15:38 RPR Titer Nonreactive (NONREACTIVE) 05/26/17 10:00 Assessment: 05/27/17 11:42 WITHDRAWAL SYMPTOM Plan: CONTINUE DETOX
[2017-05-27] MEDS: cloNIDine HCL 0.1 MG TABLET PO PRN (17:27)
[2017-05-27] MEDS: THIAMINE HCL 100 MG TABLET (FP) PO SCH (22:15)
[2017-05-27] MEDS: CYCLOBENZAPRINE HCL 10 MG TABLET (FP) PO PRN (22:16)
[2017-05-28] MEDS: DAPSONE 100 MG TABLET PO SCH (06:14)
[2017-05-28] MEDS: chlordiazePOXIDE HCL 25 MG CAPSULE PO SCH ×2 (06:15→11:12)
[2017-05-28] MEDS: DARUNAVIR 800 MG/COBICISTAT 150MG TABLET PO SCH (06:18)
[2017-05-28] MEDS: EMTRICITABINE/TENOFOV ALAFENAM (DESCOVY) TABLET PO SCH (06:18)
[2017-05-28] MEDS: PRENATAL VITAMINS W/ FOLIC ACID TABLET (FP) PO SCH (11:12)
[2017-05-28] MEDS: CLOTRIMAZOLE/BETAMET DIPROP TOPICAL CREAM 45 GM TUBE TP SCH ×2 (11:12→23:07)
[2017-05-28] MEDS: cloNIDine HCL 0.1 MG TABLET PO PRN (11:12)
[2017-05-28] MEDS: chlordiazePOXIDE 5 MG CAPSULE PO SCH ×2 (17:39→22:16)
--- NOTE | 2017-05-28 21:01 | PN ---
S CIWA - CIWA Score Nausea/Vomitin Muscle Tremors: 3 Anxiety: 3 Agitation: 3 Paroxysmal Sweats: 3 Orientation: 0-Oriented Tacttile Disturbances: 0-None Auditory Disturbances: 0-None Visual Disturbances: 0-None Headache: 0-None Present CIWA-Ar Total Score: 15 BHS Progress Note (SOAP) Subjective: shakes sleepless anxious Objective: 05/28/17 21:00 Vital Signs Temperature 97.7 F 05/28/17 18:14 Pulse Rate 77 05/28/17 18:14 Respiratory Rate 18 05/28/17 18:14 Blood Pressure 102/77 05/28/17 18:14 O2 Sat by Pulse Oximetry (%) Laboratory Last Values WBC 3.9 K/mm3 (4.0-10.0) L D 05/26/17 10:00 RBC 4.91 M/mm3 (4.00-5.60) 05/26/17 10:00 Hgb 12.3 GM/dL (11.7-16.9) 05/26/17 10:00 Hct 39.8 % (35.4-49) 05/26/17 10:00 MCV 81.1 fl (80-96) 05/26/17 10:00 MCH 25.1 pg (25.7-33.7) L 05/26/17 10:00 MCHC 31.0 g/dl (32.0-35.9) L 05/26/17 10:00 RDW 14.7 % (11.9-15.9) 05/26/17 10:00 Plt Count 213 K/MM3 (134-434) 05/26/17 10:00 MPV 9.8 fl (7.5-11.1) 05/26/17 10:00 Sodium 140 mmol/L (136-145) 05/26/17 10:00 Potassium 4.1 mmol/L (3.5-5.1) 05/26/17 10:00 Chloride 103 mmol/L (98-107) 05/26/17 10:00 Carbon Dioxide 26 mmol/L (21-32) 05/26/17 10:00 Anion Gap 11 (8-16) 05/26/17 10:00 BUN 11 mg/dL (7-18) 05/26/17 10:00 Creatinine 1.3 mg/dL (0.7-1.3) 05/26/17 10:00 Creat Clearance w eGFR 58.43 (>60) 05/26/17 10:00 Random Glucose 81 mg/dL (74-106) 05/26/17 10:00 Calcium 9.3 mg/dL (8.5-10.1) 05/26/17 10:00 Total Bilirubin 0.3 mg/dL (0.2-1.0) 05/26/17 10:00 AST 25 U/L (15-37) D 05/26/17 10:00 ALT 26 U/L (12-78) 05/26/17 10:00 Alkaline Phosphatase 83 U/L (45-117) 05/26/17 10:00 Total Protein 8.1 g/dl (6.4-8.2) 05/26/17 10:00 Albumin 3.7 g/dl (3.4-5.0) 05/26/17 10:00 Urine Color Yellow 05/26/17 15:38 Urine Appearance Clear 05/26/17 15:38 Urine pH 5.0 (5.0-8.0) 05/26/17 15:38 Ur Specific [place] 1.021 (1.001-1.035) 05/26/17 15:38 Urine Protein Negative (NEGATIVE) 05/26/17 15:38 Urine Glucose (UA) Negative (NEGATIVE) 05/26/17 15:38 Urine Ketones Negative (NEGATIVE) 05/26/17 15:38 Urine Blood Negative (NEGATIVE) 05/26/17 15:38 Urine Nitrite Negative (NEGATIVE) 05/26/17 15:38 Urine Bilirubin Negative (NEGATIVE) 05/26/17 15:38 Urine Urobilinogen Negative mg/dL (0.2-1.0) 05/26/17 15:38 Ur Leukocyte Esterase Negative (NEGATIVE) 05/26/17 15:38 RPR Titer Nonreactive (NONREACTIVE) 05/26/17 10:00 labs noted Assessment: 05/28/17 21:00 withdrawal sx Plan: continue detox
[2017-05-28] MEDS: THIAMINE HCL 100 MG TABLET (FP) PO SCH (22:16)
[2017-05-28] MEDS: CYCLOBENZAPRINE HCL 10 MG TABLET (FP) PO PRN (22:16)
[2017-05-29] MEDS: chlordiazePOXIDE 5 MG CAPSULE PO SCH ×2 (05:56→11:09)
[2017-05-29] MEDS: DAPSONE 100 MG TABLET PO SCH (05:57)
[2017-05-29] MEDS: EMTRICITABINE/TENOFOV ALAFENAM (DESCOVY) TABLET PO SCH (05:57)
[2017-05-29] MEDS: DARUNAVIR 800 MG/COBICISTAT 150MG TABLET PO SCH (05:57)
[2017-05-29] MEDS: CLOTRIMAZOLE/BETAMET DIPROP TOPICAL CREAM 45 GM TUBE TP SCH (11:09)
[2017-05-29] MEDS: PRENATAL VITAMINS W/ FOLIC ACID TABLET (FP) PO SCH (11:09)
[2017-05-29] MEDS: CYCLOBENZAPRINE HCL 10 MG TABLET (FP) PO PRN ×2 (11:10→22:42)
--- NOTE | 2017-05-29 13:52 | PN ---
S Progress Note (SOAP) Subjective: mild sweat and gi upset alert oriented x 3 tolerates food and fluid well Objective: 05/29/17 13:51 Vital Signs Temperature 99.1 F 05/29/17 10:00 Pulse Rate 94 H 05/29/17 10:00 Respiratory Rate 18 05/29/17 10:00 Blood Pressure 118/68 05/29/17 10:00 O2 Sat by Pulse Oximetry (%) Laboratory Last Values WBC 3.9 K/mm3 (4.0-10.0) L D 05/26/17 10:00 RBC 4.91 M/mm3 (4.00-5.60) 05/26/17 10:00 Hgb 12.3 GM/dL (11.7-16.9) 05/26/17 10:00 Hct 39.8 % (35.4-49) 05/26/17 10:00 MCV 81.1 fl (80-96) 05/26/17 10:00 MCH 25.1 pg (25.7-33.7) L 05/26/17 10:00 MCHC 31.0 g/dl (32.0-35.9) L 05/26/17 10:00 RDW 14.7 % (11.9-15.9) 05/26/17 10:00 Plt Count 213 K/MM3 (134-434) 05/26/17 10:00 MPV 9.8 fl (7.5-11.1) 05/26/17 10:00 Sodium 140 mmol/L (136-145) 05/26/17 10:00 Potassium 4.1 mmol/L (3.5-5.1) 05/26/17 10:00 Chloride 103 mmol/L (98-107) 05/26/17 10:00 Carbon Dioxide 26 mmol/L (21-32) 05/26/17 10:00 Anion Gap 11 (8-16) 05/26/17 10:00 BUN 11 mg/dL (7-18) 05/26/17 10:00 Creatinine 1.3 mg/dL (0.7-1.3) 05/26/17 10:00 Creat Clearance w eGFR 58.43 (>60) 05/26/17 10:00 Random Glucose 81 mg/dL (74-106) 05/26/17 10:00 Calcium 9.3 mg/dL (8.5-10.1) 05/26/17 10:00 Total Bilirubin 0.3 mg/dL (0.2-1.0) 05/26/17 10:00 AST 25 U/L (15-37) D 05/26/17 10:00 ALT 26 U/L (12-78) 05/26/17 10:00 Alkaline Phosphatase 83 U/L (45-117) 05/26/17 10:00 Total Protein 8.1 g/dl (6.4-8.2) 05/26/17 10:00 Albumin 3.7 g/dl (3.4-5.0) 05/26/17 10:00 Urine Color Yellow 05/26/17 15:38 Urine Appearance Clear 05/26/17 15:38 Urine pH 5.0 (5.0-8.0) 05/26/17 15:38 Ur Specific [place] 1.021 (1.001-1.035) 05/26/17 15:38 Urine Protein Negative (NEGATIVE) 05/26/17 15:38 Urine Glucose (UA) Negative (NEGATIVE) 05/26/17 15:38 Urine Ketones Negative (NEGATIVE) 05/26/17 15:38 Urine Blood Negative (NEGATIVE) 05/26/17 15:38 Urine Nitrite Negative (NEGATIVE) 05/26/17 15:38 Urine Bilirubin Negative (NEGATIVE) 05/26/17 15:38 Urine Urobilinogen Negative mg/dL (0.2-1.0) 05/26/17 15:38 Ur Leukocyte Esterase Negative (NEGATIVE) 05/26/17 15:38 RPR Titer Nonreactive (NONREACTIVE) 05/26/17 10:00 lab noted Assessment: 05/29/17 13:52 mild withdrawal sx Plan: medically supervised detox
[2017-05-29] MEDS: RANITIDINE HCL 150 MG TABLET (FP) PO SCH (15:12)
[2017-05-29] MEDS: chlordiazePOXIDE HCL 10 MG CAPSULE PO SCH ×2 (16:57→22:42)
[2017-05-29] MEDS: THIAMINE HCL 100 MG TABLET (FP) PO SCH (22:42)
[2017-05-30] MEDS: RANITIDINE HCL 150 MG TABLET (FP) PO SCH ×2 (00:05→09:00)
[2017-05-30] MEDS: CLOTRIMAZOLE/BETAMET DIPROP TOPICAL CREAM 45 GM TUBE TP SCH ×2 (00:05→09:01)
[2017-05-30] MEDS: DAPSONE 100 MG TABLET PO SCH (05:58)
[2017-05-30] MEDS: chlordiazePOXIDE HCL 10 MG CAPSULE PO SCH (05:58)
[2017-05-30] MEDS: DARUNAVIR 800 MG/COBICISTAT 150MG TABLET PO SCH (05:59)
[2017-05-30] MEDS: EMTRICITABINE/TENOFOV ALAFENAM (DESCOVY) TABLET PO SCH (05:59)
[2017-05-30 07:14] VITALS: BP 99/68; PULSE 99; TEMP 97.9
--- NOTE | 2017-05-30 08:51 | DS ---
[facility] Detox Discharge Summary Admission Date: 05/26/17 Discharge Date: 05/30/17 - History Present History: Alcohol Dependence, Cannabis Dependence, Cocaine Dependence Additional Comments: FOLLOW UP WITH AFTER CARE PROGRAM ARRANGEMENT Pertinent Past History: AIDS ASTHMA S/P ANGIOPLASTY WITH STENT HISTORY OF ANEMIA - Physical Exam Results Vital Signs: Vital Signs Temperature 97.9 F 05/30/17 06:14 Pulse Rate 99 H 05/30/17 06:14 Respiratory Rate 18 05/30/17 06:14 Blood Pressure 99/68 05/30/17 06:14 O2 Sat by Pulse Oximetry (%) Pertinent Admission Physical Exam Findings: WITHDRAWAL SIGN AND SYMPTOM - Treatment Hospital Course: Detox Protocol Followed, Detoxed Safely, Responded well, Discharged Condition Good Patient has Accepted a Rehab Referral to: DECLINED - Medication Discharge Medications: Ambulatory Orders Dapsone - 100 mg PO DAILY #30 tablet 07/13/16 Darunavir/Cobicistat [Prezcobix 800 mg-150 mg Tablet] 1 each PO DAILY 05/26/17 Emtricitabine/Tenofov Alafenam [Descovy 200-25 mg Tablet (Nf)] 1 each PO DAILY 05/26/17 Ergocalciferol [Vitamin D2] 50,000 unit PO Q7D@1000 05/26/17 Albuterol Sulfate Inhaler - [Ventolin HFA Inhaler -] 2 inh PO Q4H PRN #1 inhaler 05/29/17 - Diagnosis (1) Alcohol dependence with uncomplicated withdrawal Current Visit: No Status: Acute (2) Cannabis dependence Current Visit: No Status: Acute (3) History of anemia Current Visit: No Status: Acute (4) Acquired immune deficiency syndrome (AIDS) Current Visit: No Status: Chronic (5) Asthma Current Visit: No Status: Chronic Qualifiers: Asthma severity: mild persistent Asthma complication type: uncomplicated (6) Cocaine dependence Current Visit: No Status: Chronic Qualifiers: Substance use status: uncomplicated Qualified Code(s): F14.20 - Cocaine dependence, uncomplicated (7) S/P angioplasty with stent Current Visit: No Status: Chronic - AMA Did Patient Leave Against Medical Advice: No
[2017-05-30] MEDS: PRENATAL VITAMINS W/ FOLIC ACID TABLET (FP) PO SCH (09:01)
[2017-06-02] MEDS ORDERED: ERGOCALCIFEROL (VITAMIN D2) 50,000 UNIT CAPSULE (FP) PO SCH (10:00)
== END 2017-05-30 09:37 | disposition home or self-care (01) | DRG 896 ==
LOC: YASAS 08:13 → Y6N 11:10
PROVIDERS: ADMIT Internal Medicine; ATTEND Internal Medicine
PROC: HZ2ZZZZ Detoxification Services for Substance Abuse Treatment (ICD-10-PCS; principal; 2017-05-26)
DX: F19.230 Other psychoactive substance dependence with withdrawal, uncomplicated (principal); B20 Human immunodeficiency virus [HIV] disease; F14.20 Cocaine dependence, uncomplicated; F12.20 Cannabis dependence, uncomplicated; F19.24 Other psychoactive substance dependence with psychoactive substance-induced mood disorder; F34.1 Dysthymic disorder; I25.10 Atherosclerotic heart disease of native coronary artery without angina pectoris; Z95.5 Presence of coronary angioplasty implant and graft; I25.2 Old myocardial infarction; L85.3 Xerosis cutis; Z86.2 Personal history of diseases of the blood and blood-forming organs and certain disorders involving the immune mechanism
CPT/HCPCS: 36415; 80053; 81003; 85027; 86593; 93005; 93010; J0735

== ENCOUNTER 2017-07-07 08:14 | Inpatient (IN) | payer OTHER ==
[2017-07-07 09:42] VITALS: BMI 24.1
--- NOTE | 2017-07-07 12:31 | HP ---
CIWA Score - CIWA Score Nausea/Vomitin Muscle Tremors: 3 Anxiety: 3 Agitation: 3 Paroxysmal Sweats: 2 Orientation: 0-Oriented Tacttile Disturbances: 2-Mild Itch/Numbness/Burn Auditory Disturbances: 2-Mild Harshness/Frighten Visual Disturbances: 1-Very Mild Sensitivity Headache: 2-Mild CIWA-Ar Total Score: 21 Admission ROS S - HPI Chief Complaint: i am here to stop drinking alcohol,cocaine,marijuana Allergies/Adverse Reactions: Allergies Allergy/AdvReac Type Severity Reaction Status Date / Time sulfamethoxazole Allergy Severe Hives Verified 07/07/17 11:31 [From Bactrim] trimethoprim [From Bactrim] Allergy Severe Hives Verified 07/07/17 11:31 Fish Containing Products Allergy Swelling Verified 07/07/17 11:31 History of Present Illness: this 52 years old male with alcohol,cocaine and marijuana dependence,seeking detox,withdrawal symptom,last detox [facility] 05/26/17 to 05/30.18 asthma weight loss longest period of sobriety 9 moths eczema Exam Limitations: No Limitations - Ebola screening Have you traveled outside of the country in the last 21 days: No (N) Have you had contact with anyone from an Ebola affected area: No Have you been sick,other than usual withdrawal symptoms: No Do you have a fever: No - Review of Systems Constitutional: Chills, Loss of Appetite, Malaise, Night Sweats, Changes in sleep, Unintentional Wgt. Loss EENT: reports: Tearing, Nose Congestion Respiratory: reports: No Symptoms reported, Other (asthma) Cardiac: reports: Palpitations GI: reports: Diarrhea, Nausea, Vomiting Musculoskeletal: reports: Back Pain, Muscle Pain Integumentary: reports: Dryness Neuro: reports: Headache, Tremors Endocrine: reports: No Symptoms Reported Hematology: reports: No Symptoms Reported Psychiatric: reports: No Sypmtoms Reported, Judgement Intact, Mood/Affect Appropiate, Orientated x3 Patient History - Patient Medical History Hx Anemia: Yes (NOT CURRENTLY ON MEDS) Hx Asthma: Yes (on albuteril inhaler) Hx Chronic Obstructive Pulmonary Disease (COPD): No Hx Cancer: No Hx Cardiac Disorders: Yes (stent x2 in 2009,2011) Hx Congestive Heart Failure: No Hx Hypertension: No Hx Hypercholesterolemia: No Hx Pacemaker: No HX Cerebrovascular Accident: No Hx Seizures: No Hx Dementia: No Hx Diabetes: No Hx Gastrointestinal Disorders: No Hx Liver Disease: No Hx Genitourinary Disorders: No Hx Sexually Transmitted Disorders: No Hx Renal Disease (ESRD): No Hx Thyroid Disease: No Hx Human Immunodeficiency Virus (HIV): Yes (12/2000; ON MED) Hx Hepatitis C: No Hx Depression: No Hx Suicide Attempt: No Hx Bipolar Disorder: No Hx Schizophrenia: No Other Medical History: no suicidal,no homicidal - Patient Surgical History Past Surgical History: Yes Hx Neurologic Surgery: No Hx Cataract Extraction: No Hx Cardiac Surgery: Yes (STENT X2 2009 and 2011) Hx Lung Surgery: No Hx Breast Surgery: No Hx Breast Biopsy: No Hx Abdominal Surgery: No Hx Appendectomy: No Hx Cholecystectomy: No Hx Genitourinary Surgery: No Hx Section: No Hx Orthopedic Surgery: No Hx Hysterectomy: No Anesthesia Reaction: No - PPD History Previous Implant?: Yes Documented Results: Negative w/proof Implanted On Prior [facility] Admission?: Yes Date: 01/09/15 Results: 0 mm PPD to be Administered?: Yes - Smoking Cessation Smoking history: Never smoked Have you smoked in the past 12 months: No Aproximately how many cigarettes per day: 0 Hx Chewing Tobacco Use: No Initiated information on smoking cessation: No - Substance & Tx. History Hx Alcohol Use: Yes Hx Substance Use: Yes Substance Use Type: Alcohol, Cocaine, Marijuana Hx Substance Use Treatment: Yes ([facility] 05/26/17 to 05/30/17) - Substances Abused Cocaine Route: Smoking Frequency: 3-6 times per week Amount used: $100 Age of first use: 39 Date of Last Use: 07/06/17 Alcohol-vodka Route: Oral Frequency: Daily Amount used: 2 pts. Age of first use: 14 Date of Last Use: 07/07/17 Marijuana Route: Smoking Frequency: Daily Amount used: $25 Age of first use: 22 Date of Last Use: 07/07/17 Family Disease History - Family Disease History Family Disease History: Diabetes: Mother (CA survivor..alive), Heart Disease: Father (), Mother, Sister (HTN), [place]: Mother Admission Physical Exam BHS - Vital Signs Vital Signs: Vital Signs - 24 hr 07/07/17 09:36 Temperature 97.9 F Pulse Rate 111 H Respiratory 20 Rate Blood Pressure 134/69 - Physical General Appearance: Yes: Moderate Distress, Tremorous, Irritable, Sweating, Anxious HEENTM: Yes: Normal ENT Inspection, DANIELE, Pharynx Normal Respiratory: Yes: Lungs Clear, Normal Breath Sounds, No Respiratory Distress Neck: Yes: Within Normal Limits, Supple, Trachea in good position Breast: Yes: Within Normal Limits Cardiology: Yes: S1, S2, Tachycardia Abdominal: Yes: Within Normal Limits, Normal Bowel Sounds, Non Tender, Soft Genitourinary: Yes: Within Normal Limits Back: Yes: Normal Inspection, Muscle Spasm Musculoskeletal: Yes: full range of Motion, Back pain, Muscle Pain Extremities: Yes: Within Normal Limits, Normal Range of Motion, Tremors Neurological: Yes: Within Normal Limits, Alert, Motor Strength 5/5 Integumentary: Yes: Dry, Rash Lymphatic: Yes: Within Normal Limits - Diagnostic (1) Alcohol dependence with uncomplicated withdrawal Current Visit: Yes Status: Acute (2) Eczema Current Visit: Yes Status: Acute Qualifiers: Eczema type: unspecified Qualified Code(s): L30.9 - Dermatitis, unspecified (3) Cannabis dependence Current Visit: No Status: Acute (4) Acquired immune deficiency syndrome (AIDS) Current Visit: Yes Status: Chronic Comment: since 2000 (5) Asthma Current Visit: Yes Status: Chronic Qualifiers: Asthma severity: mild Asthma persistence: intermittent Asthma complication type: uncomplicated Qualified Code(s): J45.20 - Mild intermittent asthma, uncomplicated (6) Cocaine dependence Current Visit: No Status: Chronic Qualifiers: Substance use status: uncomplicated Qualified Code(s): F14.20 - Cocaine dependence, uncomplicated (7) S/P angioplasty with stent Current Visit: Yes Status: Chronic (8) Weight loss Current Visit: Yes Status: Acute Cleared for Admission [facility] - Detox or Rehab [facility] Level of Care: Medically Managed Detox Regimen/Protocol: Librium [facility] Breath Alcohol Content Breath Alcohol Content: 0 Urine Drug Screen - Results Drug Screen Negative: No Urine Drug Screen Results: THC-Marijuana, PORFIRIO-Cocaine, BZO-Benzodiazepines
[2017-07-07] MEDS ORDERED: guaiFENesin/D-METHORPHAN HB 10 ML UNIT-DOSE CUPS PO PRN (12:41)
[2017-07-07] MEDS ORDERED: MAGNESIUM HYDROX 2400MG/30ML ORAL SUSPENSION 30 ML CUP PO PRN (12:41)
[2017-07-07] MEDS ORDERED: IBUPROFEN 400 MG TABLET (FP) PO PRN (12:41)
[2017-07-07] MEDS ORDERED: hydrOXYzine PAMOATE 50 MG CAPSULE (FP) PO PRN (12:41)
[2017-07-07] MEDS ORDERED: MAGNESIUM CITRATE 300 ML BOTTLE PO PRN (12:41)
[2017-07-07] MEDS ORDERED: chlordiazePOXIDE HCL 25 MG CAPSULE PO PRN (12:41)
[2017-07-07] MEDS ORDERED: LOPERAMIDE HCL 2 MG CAPSULE PO PRN (12:41)
[2017-07-07] MEDS ORDERED: P-EPHED 60MG/TRIPROLIDI 2.5MG TABLET PO PRN (12:41)
[2017-07-07] MEDS ORDERED: MENTHOL/PHENOL 1 EACH UD MM PRN (12:41)
[2017-07-07] MEDS ORDERED: MAG HYDROX/AL HYDROX/SIMETH 30 ML UNIT-DOSE CUP PO PRN (12:41)
[2017-07-07] MEDS ORDERED: ALBUTEROL SO4 18 GM HFA INHALER IH PRN (12:45)
[2017-07-07] MEDS ORDERED: chlordiazePOXIDE HCL 25 MG CAPSULE PO ONE (13:35)
[2017-07-07] MEDS: TRIAMCINOLONE ACET 0.1% CREAM 15 GM TUBE TP SCH ×2 (15:09→22:09)
--- NOTE | 2017-07-07 16:22 | EKG ---
Test Reason : Blood Pressure : / mmHG Vent. Rate : 081 BPM Atrial Rate : 081 BPM P-R Int : 102 ms QRS Dur : 076 ms QT Int : 338 ms P-R-T Axes : 072 051 -46 degrees QTc Int : 392 ms POOR DATA QUALITY, INTERPRETATION MAY BE ADVERSELY AFFECTED SINUS RHYTHM WITH SHORT WI ABNORMAL ECG WHEN COMPARED WITH ECG OF 26-MAY-2017 11:58, NO SIGNIFICANT CHANGE WAS FOUND Confirmed by GIGI ANTHONY, BENNIE ([id number]) on 07/07/2017 4:22:19 PM Referred By: Confirmed By:BENNIE YU MD
[2017-07-07] MEDS: chlordiazePOXIDE HCL 25 MG CAPSULE PO SCH ×2 (17:42→22:10)
[2017-07-07 19:41] LABS: URINE APPEARANCE TURBID; URINE BILIRUBIN NEGATIVE (<2.0 mg/dL); URINE BLOOD NEGATIVE (NEGATIVE); URINE COLOR YELLOW; URINE GLUCOSE (UA) NEGATIVE (NEGATIVE); URINE KETONE NEGATIVE (NEGATIVE); URINE LEUK ESTERASE NEGATIVE (NEGATIVE); URINE NITRITE NEGATIVE (NEGATIVE); URINE UROBILINOGEN NEGATIVE mg/dL (0.2-1.0)
[2017-07-07 19:45] LABS: URINE PROTEIN 1+ (NEGATIVE)
[2017-07-07 20:14] LABS: URINE MUCUS MANY
[2017-07-07] MEDS ORDERED: MELATONIN 5 MG TABLETS PO PRN (22:00)
[2017-07-07] MEDS: THIAMINE HCL 100 MG TABLET (FP) PO SCH (22:10)
[2017-07-08] MEDS: chlordiazePOXIDE HCL 25 MG CAPSULE PO SCH ×4 (05:46→22:14)
[2017-07-08] MEDS: EMTRICITABINE/TENOFOV ALAFENAM (DESCOVY) TABLET PO SCH (07:07)
[2017-07-08] MEDS: DARUNAVIR 800 MG/COBICISTAT 150MG TABLET PO SCH (07:07)
[2017-07-08] MEDS ORDERED: EMTRICITABINE/TENOFOV ALAFENAM (DESCOVY) TABLET PO SCH (10:00)
[2017-07-08] MEDS ORDERED: DARUNAVIR 800 MG/COBICISTAT 150MG TABLET PO SCH (10:00)
[2017-07-08] MEDS: TRIAMCINOLONE ACET 0.1% CREAM 15 GM TUBE TP SCH ×2 (10:19→22:56)
[2017-07-08] MEDS: DAPSONE 100 MG TABLET PO SCH (10:19)
[2017-07-08] MEDS: PRENATAL VITAMINS W/ FOLIC ACID TABLET (FP) PO SCH (10:19)
[2017-07-08 10:20] LABS: HEMATOCRIT 37.9 % (35.4-49); MCH 26.1 pg (25.7-33.7); MCHC 31.8 g/dl (32.0-35.9); MEAN PLT VOLUME 10.4 fl (7.5-11.1); PLATELET COUNT 184 K/MM3 (134-434); RBC 4.62 M/mm3 (4.00-5.60); WHITE BLOOD COUNT 2.5 K/mm3 (4.0-10.0)
[2017-07-08 10:24] LABS: ALBUMIN 3.8 g/dl (3.4-5.0); ANION GAP 6 (8-16); BILIRUBIN,TOTAL 0.2 mg/dL (0.2-1.0); BLOOD UREA NITROGEN 12 mg/dL (7-18); CALCIUM 8.7 mg/dL (8.5-10.1); CHLORIDE 106 mmol/L (98-107); CO2 30 mmol/L (21-32); CREATININE 1.4 mg/dL (0.7-1.3); GLUCOSE,RANDOM 64 mg/dL (74-106); POTASSIUM 3.9 mmol/L (3.5-5.1); SGOT/AST 27 U/L (15-37); SGPT/ALT 28 U/L (12-78); SODIUM 142 mmol/L (136-145); TOT PROT 7.9 g/dl (6.4-8.2)
[2017-07-08 10:25] LABS: ALK PHOS 81 U/L (45-117)
--- NOTE | 2017-07-08 11:02 | PN ---
S CIWA - CIWA Score Nausea/Vomitin Muscle Tremors: 4-Moderate,w/Arms Extend Anxiety: 3 Agitation: 2 Paroxysmal Sweats: 3 Orientation: 0-Oriented Tacttile Disturbances: 0-None Auditory Disturbances: 0-None Visual Disturbances: 2-Mild Sensitivity Headache: 0-None Present CIWA-Ar Total Score: 19 BHS Progress Note (SOAP) Subjective: Vomiting, Tremors, Fatigue, Sweating, Diarrhea. Objective: PATIENT A & O X 3. NO ACUTE DISTRESS. 07/08/17 10:59 Vital Signs Temperature 96.1 F L 07/08/17 09:24 Pulse Rate 81 07/08/17 09:24 Respiratory Rate 18 07/08/17 09:24 Blood Pressure 90/57 07/08/17 09:24 O2 Sat by Pulse Oximetry (%) Laboratory Tests 07/07/17 07/08/17 19:00 05:50 Sodium 142 Potassium 3.9 Chloride 106 Carbon Dioxide 30 Anion Gap 6 L BUN 12 Creatinine 1.4 H Creat Clearance w eGFR 53.43 Random Glucose 64 L D Calcium 8.7 Total Bilirubin 0.2 D AST 27 ALT 28 Alkaline Phosphatase 81 Total Protein 7.9 Albumin 3.8 Urine Color Yellow Urine Appearance Turbid Urine pH 5.0 Ur Specific [place] 1.032 Urine Protein 1+ H Urine Glucose (UA) Negative Urine Ketones Negative Urine Blood Negative Urine Nitrite Negative Urine Bilirubin Negative Urine Urobilinogen Negative Ur Leukocyte Esterase Negative Urine WBC (Auto) None Urine RBC (Auto) None Urine Mucus Many LABS NOTED. CBC, RPR RESULTS PENDING. 07/08/17 11:02 Assessment: 07/08/17 10:59 WITHDRAWAL SYMPTOMS. Plan: CONTINUE DETOX. INCREASE DAILY PO FLUID INTAKE.
[2017-07-08] MEDS: THIAMINE HCL 100 MG TABLET (FP) PO SCH (22:14)
[2017-07-09] MEDS: chlordiazePOXIDE HCL 25 MG CAPSULE PO SCH ×2 (06:08→10:23)
[2017-07-09] MEDS: EMTRICITABINE/TENOFOV ALAFENAM (DESCOVY) TABLET PO SCH (07:43)
[2017-07-09] MEDS: DARUNAVIR 800 MG/COBICISTAT 150MG TABLET PO SCH (07:44)
[2017-07-09] MEDS: DAPSONE 100 MG TABLET PO SCH (10:23)
[2017-07-09] MEDS: TRIAMCINOLONE ACET 0.1% CREAM 15 GM TUBE TP SCH ×2 (10:23→22:23)
[2017-07-09] MEDS: PRENATAL VITAMINS W/ FOLIC ACID TABLET (FP) PO SCH (10:24)
[2017-07-09] MEDS: AMMONIUM LACTATE 12% LOTION 225 GM BOTTLE TP SCH ×2 (15:12→22:22)
--- NOTE | 2017-07-09 15:24 | PN ---
[facility] CIWA - CIWA Score Nausea/Vomitin Muscle Tremors: 3 Anxiety: 1-Mildly Anxious Agitation: 0-Normal Activity Paroxysmal Sweats: 3 Orientation: 0-Oriented Tacttile Disturbances: 3-Moderate Itch/Numb/Burn Auditory Disturbances: 1-Very Mild Visual Disturbances: 2-Mild Sensitivity Headache: 0-None Present CIWA-Ar Total Score: 16 S Progress Note (SOAP) Subjective: Nausea, Sweating, H/A, Tremors, Fatigue, Diarrhea. Objective: PATIENT A & O X 3, OBSERVED AMBULATING ON UNIT. NO ACUTE DISTRESS. 07/09/17 15:21 Vital Signs Temperature 97.8 F 07/09/17 13:06 Pulse Rate 89 07/09/17 13:06 Respiratory Rate 18 07/09/17 13:06 Blood Pressure 91/59 07/09/17 13:06 O2 Sat by Pulse Oximetry (%) Laboratory Tests 07/07/17 07/08/17 07/08/17 19:00 05:50 05:50 WBC 2.5 L D RBC 4.62 Hgb 12.0 Hct 37.9 MCV 82.0 MCH 26.1 MCHC 31.8 L RDW 15.0 Plt Count 184 MPV 10.4 Sodium 142 Potassium 3.9 Chloride 106 Carbon Dioxide 30 Anion Gap 6 L BUN 12 Creatinine 1.4 H Creat Clearance w eGFR 53.43 Random Glucose 64 L D Calcium 8.7 Total Bilirubin 0.2 D AST 27 ALT 28 Alkaline Phosphatase 81 Total Protein 7.9 Albumin 3.8 Urine Color Yellow Urine Appearance Turbid Urine pH 5.0 Ur Specific [place] 1.032 Urine Protein 1+ H Urine Glucose (UA) Negative Urine Ketones Negative Urine Blood Negative Urine Nitrite Negative Urine Bilirubin Negative Urine Urobilinogen Negative Ur Leukocyte Esterase Negative Urine WBC (Auto) None Urine RBC (Auto) None Urine Mucus Many RPR Titer 07/08/17 05:50 WBC RBC Hgb Hct MCV MCH MCHC RDW Plt Count MPV Sodium Potassium Chloride Carbon Dioxide Anion Gap BUN Creatinine Creat Clearance w eGFR Random Glucose Calcium Total Bilirubin AST ALT Alkaline Phosphatase Total Protein Albumin Urine Color Urine Appearance Urine pH Ur Specific [place] Urine Protein Urine Glucose (UA) Urine Ketones Urine Blood Urine Nitrite Urine Bilirubin Urine Urobilinogen Ur Leukocyte Esterase Urine WBC (Auto) Urine RBC (Auto) Urine Mucus RPR Titer Nonreactive LABS NOTED. PATIENT HAS HAD LOW WBC LEVELS ON SEVERAL PREVIOUS ADMISSIONS. 07/09/17 15:23 Assessment: 07/09/17 15:22 WITHDRAWAL SYMPTOMS. LEUKOPNEIA. 07/09/17 15:23 Plan: CONTINUE DETOX. INCREASE DAILY PO FLUID INTAKE. ENCOURAGE AMBULATION.
[2017-07-09] MEDS: chlordiazePOXIDE 5 MG CAPSULE PO SCH ×2 (16:40→22:22)
[2017-07-09] MEDS: ACETAMINOPHEN 325 MG TABLET (FP) PO PRN (16:42)
[2017-07-09] MEDS: THIAMINE HCL 100 MG TABLET (FP) PO SCH (22:22)
[2017-07-10] MEDS: chlordiazePOXIDE 5 MG CAPSULE PO SCH ×2 (05:13→10:23)
[2017-07-10] MEDS: ACETAMINOPHEN 325 MG TABLET (FP) PO PRN ×2 (05:34→10:23)
[2017-07-10] MEDS: EMTRICITABINE/TENOFOV ALAFENAM (DESCOVY) TABLET PO SCH (07:19)
[2017-07-10] MEDS: DARUNAVIR 800 MG/COBICISTAT 150MG TABLET PO SCH (07:19)
[2017-07-10] MEDS: PRENATAL VITAMINS W/ FOLIC ACID TABLET (FP) PO SCH (10:23)
[2017-07-10] MEDS: TRIAMCINOLONE ACET 0.1% CREAM 15 GM TUBE TP SCH ×2 (10:23→22:08)
[2017-07-10] MEDS: DAPSONE 100 MG TABLET PO SCH (10:23)
[2017-07-10] MEDS: AMMONIUM LACTATE 12% LOTION 225 GM BOTTLE TP SCH ×2 (10:23→22:08)
[2017-07-10] MEDS: CYCLOBENZAPRINE HCL 10 MG TABLET (FP) PO PRN ×2 (15:13→22:09)
--- NOTE | 2017-07-10 15:21 | PN ---
S Progress Note (SOAP) Subjective: Tremor, headache, diarrhea, c/o left knee pain and requesting norah bandage Objective: 07/10/17 15:17 Last Vital Signs Temp Pulse Resp BP Pulse Ox 96.7 F L 84 18 116/76 07/10/17 14:19 07/10/17 14:19 07/10/17 14:19 07/10/17 14:19 Laboratory Tests 07/07/17 07/08/17 07/08/17 19:00 05:50 05:50 WBC 2.5 L D RBC 4.62 Hgb 12.0 Hct 37.9 MCV 82.0 MCH 26.1 MCHC 31.8 L RDW 15.0 Plt Count 184 MPV 10.4 Sodium 142 Potassium 3.9 Chloride 106 Carbon Dioxide 30 Anion Gap 6 L BUN 12 Creatinine 1.4 H Creat Clearance w eGFR 53.43 Random Glucose 64 L D Calcium 8.7 Total Bilirubin 0.2 D AST 27 ALT 28 Alkaline Phosphatase 81 Total Protein 7.9 Albumin 3.8 Urine Color Yellow Urine Appearance Turbid Urine pH 5.0 Ur Specific [place] 1.032 Urine Protein 1+ H Urine Glucose (UA) Negative Urine Ketones Negative Urine Blood Negative Urine Nitrite Negative Urine Bilirubin Negative Urine Urobilinogen Negative Ur Leukocyte Esterase Negative Urine WBC (Auto) None Urine RBC (Auto) None Urine Mucus Many RPR Titer 07/08/17 05:50 WBC RBC Hgb Hct MCV MCH MCHC RDW Plt Count MPV Sodium Potassium Chloride Carbon Dioxide Anion Gap BUN Creatinine Creat Clearance w eGFR Random Glucose Calcium Total Bilirubin AST ALT Alkaline Phosphatase Total Protein Albumin Urine Color Urine Appearance Urine pH Ur Specific [place] Urine Protein Urine Glucose (UA) Urine Ketones Urine Blood Urine Nitrite Urine Bilirubin Urine Urobilinogen Ur Leukocyte Esterase Urine WBC (Auto) Urine RBC (Auto) Urine Mucus RPR Titer Nonreactive Labs noted: prerenal azotemia and proteinuria Assessment: 07/10/17 15:18 Withdrawal symptoms Noted with prerenal azotemia and proteinuria Plan: Continue detox Prerenal azotemia: encouraged to drink more water, repeat BMP Proteinuria: encouraged to drink lots of water for hydration (6-8 cups/day), repeat UA; water pitcher ordered
[2017-07-10] MEDS: chlordiazePOXIDE HCL 10 MG CAPSULE PO SCH ×2 (17:59→22:09)
[2017-07-10] MEDS: THIAMINE HCL 100 MG TABLET (FP) PO SCH (22:09)
[2017-07-11] MEDS: chlordiazePOXIDE HCL 10 MG CAPSULE PO SCH ×2 (06:03→10:16)
[2017-07-11] MEDS: EMTRICITABINE/TENOFOV ALAFENAM (DESCOVY) TABLET PO SCH (07:48)
[2017-07-11] MEDS: DARUNAVIR 800 MG/COBICISTAT 150MG TABLET PO SCH (07:48)
[2017-07-11 09:18] VITALS: BP 122/88; PULSE 98; TEMP 96
[2017-07-11] MEDS: DAPSONE 100 MG TABLET PO SCH (10:14)
[2017-07-11] MEDS: TRIAMCINOLONE ACET 0.1% CREAM 15 GM TUBE TP SCH (10:15)
[2017-07-11] MEDS: AMMONIUM LACTATE 12% LOTION 225 GM BOTTLE TP SCH (10:15)
[2017-07-11] MEDS: PRENATAL VITAMINS W/ FOLIC ACID TABLET (FP) PO SCH (10:16)
[2017-07-11] MEDS: CYCLOBENZAPRINE HCL 10 MG TABLET (FP) PO PRN (10:16)
--- NOTE | 2017-07-11 11:06 | PN ---
[facility] Progress Note (SOAP) Subjective: DETOX COMPLETED. REFERRED TO [facility]. Objective: 07/11/17 11:04 Vital Signs Temperature 96.0 F L 07/11/17 09:17 Pulse Rate 98 H 07/11/17 09:17 Respiratory Rate 20 07/11/17 09:17 Blood Pressure 122/88 07/11/17 09:17 O2 Sat by Pulse Oximetry (%) Laboratory Tests 07/07/17 07/08/17 07/08/17 19:00 05:50 05:50 WBC 2.5 L D RBC 4.62 Hgb 12.0 Hct 37.9 MCV 82.0 MCH 26.1 MCHC 31.8 L RDW 15.0 Plt Count 184 MPV 10.4 Sodium 142 Potassium 3.9 Chloride 106 Carbon Dioxide 30 Anion Gap 6 L BUN 12 Creatinine 1.4 H Creat Clearance w eGFR 53.43 Random Glucose 64 L D Calcium 8.7 Total Bilirubin 0.2 D AST 27 ALT 28 Alkaline Phosphatase 81 Total Protein 7.9 Albumin 3.8 Urine Color Yellow Urine Appearance Turbid Urine pH 5.0 Ur Specific [place] 1.032 Urine Protein 1+ H Urine Glucose (UA) Negative Urine Ketones Negative Urine Blood Negative Urine Nitrite Negative Urine Bilirubin Negative Urine Urobilinogen Negative Ur Leukocyte Esterase Negative Urine WBC (Auto) None Urine RBC (Auto) None Urine Mucus Many RPR Titer 07/08/17 05:50 WBC RBC Hgb Hct MCV MCH MCHC RDW Plt Count MPV Sodium Potassium Chloride Carbon Dioxide Anion Gap BUN Creatinine Creat Clearance w eGFR Random Glucose Calcium Total Bilirubin AST ALT Alkaline Phosphatase Total Protein Albumin Urine Color Urine Appearance Urine pH Ur Specific [place] Urine Protein Urine Glucose (UA) Urine Ketones Urine Blood Urine Nitrite Urine Bilirubin Urine Urobilinogen Ur Leukocyte Esterase Urine WBC (Auto) Urine RBC (Auto) Urine Mucus RPR Titer Nonreactive Assessment: 07/11/17 11:04 NAD Plan: D/C PT TODAY.
--- NOTE | 2017-07-11 11:10 | DS ---
[facility] Detox Discharge Summary Admission Date: 07/07/17 Discharge Date: 07/11/17 - History Present History: Alcohol Dependence, Cannabis Dependence, Cocaine Dependence Additional Comments: DETOX COMPLETED. ALERT O X 3. NAD. Pertinent Past History: PLEASE SEE BELOW - Physical Exam Results Vital Signs: Vital Signs Temperature 96.0 F L 07/11/17 09:17 Pulse Rate 98 H 07/11/17 09:17 Respiratory Rate 20 07/11/17 09:17 Blood Pressure 122/88 07/11/17 09:17 O2 Sat by Pulse Oximetry (%) Pertinent Admission Physical Exam Findings: WITHDRAWAL SX Laboratory Tests 07/07/17 07/08/17 07/08/17 19:00 05:50 05:50 WBC 2.5 L D RBC 4.62 Hgb 12.0 Hct 37.9 MCV 82.0 MCH 26.1 MCHC 31.8 L RDW 15.0 Plt Count 184 MPV 10.4 Sodium 142 Potassium 3.9 Chloride 106 Carbon Dioxide 30 Anion Gap 6 L BUN 12 Creatinine 1.4 H Creat Clearance w eGFR 53.43 Random Glucose 64 L D Calcium 8.7 Total Bilirubin 0.2 D AST 27 ALT 28 Alkaline Phosphatase 81 Total Protein 7.9 Albumin 3.8 Urine Color Yellow Urine Appearance Turbid Urine pH 5.0 Ur Specific [place] 1.032 Urine Protein 1+ H Urine Glucose (UA) Negative Urine Ketones Negative Urine Blood Negative Urine Nitrite Negative Urine Bilirubin Negative Urine Urobilinogen Negative Ur Leukocyte Esterase Negative Urine WBC (Auto) None Urine RBC (Auto) None Urine Mucus Many RPR Titer 07/08/17 05:50 WBC RBC Hgb Hct MCV MCH MCHC RDW Plt Count MPV Sodium Potassium Chloride Carbon Dioxide Anion Gap BUN Creatinine Creat Clearance w eGFR Random Glucose Calcium Total Bilirubin AST ALT Alkaline Phosphatase Total Protein Albumin Urine Color Urine Appearance Urine pH Ur Specific [place] Urine Protein Urine Glucose (UA) Urine Ketones Urine Blood Urine Nitrite Urine Bilirubin Urine Urobilinogen Ur Leukocyte Esterase Urine WBC (Auto) Urine RBC (Auto) Urine Mucus RPR Titer Nonreactive - Treatment Hospital Course: Detox Protocol Followed, Detoxed Safely, Responded well, Discharged Condition Good, Rehab Referral Accepted Patient has Accepted a Rehab Referral to: [facility] - Medication Discharge Medications: Ambulatory Orders Albuterol Sulfate Inhaler - [Ventolin HFA Inhaler -] 2 inh PO Q4H PRN #1 inhaler 02/25/18 Dapsone - 100 mg PO DAILY #30 tablet 07/11/17 Darunavir/Cobicistat [Prezcobix 800 mg-150 mg Tablet] 1 each PO DAILY #30 tablet 07/11/17 Emtricitabine/Tenofov Alafenam [Descovy 200-25 mg Tablet (Nf)] 1 each PO DAILY # 30 tablet 07/11/17 - Diagnosis (1) Alcohol dependence with uncomplicated withdrawal Status: Acute (2) Acquired immune deficiency syndrome (AIDS) Status: Chronic (3) Asthma Status: Chronic Qualifiers: Asthma severity: mild Asthma persistence: unspecified Asthma complication type: uncomplicated Qualified Code(s): J45.909 - Unspecified asthma, uncomplicated (4) Dry skin dermatitis Status: Chronic (5) History of anemia Status: Chronic (6) Weight loss Status: Acute (7) S/P angioplasty with stent Status: Chronic (8) Cocaine dependence Status: Acute Qualifiers: Substance use status: uncomplicated Qualified Code(s): F14.20 - Cocaine dependence, uncomplicated (9) Cannabis dependence, uncomplicated Status: Acute - AMA Did Patient Leave Against Medical Advice: No
[2017-07-11 12:36] LABS: ANION GAP 2 (8-16); BLOOD UREA NITROGEN 12 mg/dL (7-18); CALCIUM 8.7 mg/dL (8.5-10.1); CHLORIDE 108 mmol/L (98-107); CO2 31 mmol/L (21-32); CREATININE 1.3 mg/dL (0.7-1.3); GLUCOSE,RANDOM 73 mg/dL (74-106); POTASSIUM 4.1 mmol/L (3.5-5.1); SODIUM 141 mmol/L (136-145)
== END 2017-07-11 11:15 | disposition other institution (70) | DRG 896 ==
LOC: YASAS 08:14 → Y3N 13:23
PROVIDERS: ADMIT Internal Medicine; ATTEND Internal Medicine
PROC: HZ2ZZZZ Detoxification Services for Substance Abuse Treatment (ICD-10-PCS; principal; 2017-07-07)
DX: F19.230 Other psychoactive substance dependence with withdrawal, uncomplicated (principal); B20 Human immunodeficiency virus [HIV] disease; F14.20 Cocaine dependence, uncomplicated; F10.230 Alcohol dependence with withdrawal, uncomplicated; F12.20 Cannabis dependence, uncomplicated; Z95.5 Presence of coronary angioplasty implant and graft; J45.909 Unspecified asthma, uncomplicated; R80.9 Proteinuria, unspecified; R79.89 Other specified abnormal findings of blood chemistry; Z86.2 Personal history of diseases of the blood and blood-forming organs and certain disorders involving the immune mechanism; L85.3 Xerosis cutis; R63.4 Abnormal weight loss; Z68.24 Body mass index [BMI] 24.0-24.9, adult
CPT/HCPCS: 36415; 80048; 80053; 81003; 81015; 85027; 86593; 93005; 93010

== ENCOUNTER 2017-08-12 08:28 | Inpatient (IN) | payer OTHER ==
[2017-08-12 10:02] VITALS: BMI 24.5
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
[2017-08-12] MEDS ORDERED: ACETAMINOPHEN 325 MG TABLET (FP) PO PRN (10:47)
[2017-08-12] MEDS ORDERED: guaiFENesin/D-METHORPHAN HB 10 ML UNIT-DOSE CUPS PO PRN (10:47)
[2017-08-12] MEDS ORDERED: IBUPROFEN 400 MG TABLET (FP) PO PRN (10:47)
[2017-08-12] MEDS ORDERED: MAG HYDROX/AL HYDROX/SIMETH 30 ML UNIT-DOSE CUP PO PRN (10:47)
[2017-08-12] MEDS ORDERED: LOPERAMIDE HCL 2 MG CAPSULE PO PRN (10:47)
[2017-08-12] MEDS ORDERED: P-EPHED 60MG/TRIPROLIDI 2.5MG TABLET PO PRN (10:47)
[2017-08-12] MEDS ORDERED: MAGNESIUM CITRATE 300 ML BOTTLE PO PRN (10:47)
[2017-08-12] MEDS ORDERED: MENTHOL/PHENOL 1 EACH UD MM PRN (10:47)
[2017-08-12] MEDS ORDERED: MAGNESIUM HYDROX 2400MG/30ML ORAL SUSPENSION 30 ML CUP PO PRN (10:47)
[2017-08-12] MEDS ORDERED: ALBUTEROL SO4 18 GM HFA INHALER IH PRN (10:50)
[2017-08-12] MEDS ORDERED: chlordiazePOXIDE HCL 25 MG CAPSULE PO PRN (10:51)
[2017-08-12] MEDS ORDERED: chlordiazePOXIDE HCL 25 MG CAPSULE PO ONE (12:00)
[2017-08-12] MEDS: hydrOXYzine PAMOATE 50 MG CAPSULE (FP) PO PRN (12:54)
--- NOTE | 2017-08-12 13:55 | CONSULT ---
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 This is one of multiple admissions for patient. Patient admitted to for alcohol dependence. Substance Abuse History: Following information confirmed with Mr. Hunter: Smoking Cessation. Smoking history: Never smoked. Have you smoked in the past 12 months: No. Aproximately how many cigarettes per day: 0. Hx Chewing Tobacco Use: No. Initiated information on smoking cessation: No. - Substance & Tx. History. Hx Alcohol Use: Yes. Hx Substance Use: Yes. Substance Use Type : Alcohol, Cocaine, Marijuana. - Substances Abused. Cocaine. Route: Inhalation. Frequency: Daily. Amount used: $75-100. Age of first use: 39. Date of Last Use: 08/11/17. Alcohol-vodka. Route: Oral. Frequency: Daily. Amount used: 4 pts. Age of first use: 14. Date of Last Use: 08/11/17. Marijuana. Route: Smoking. Frequency: Daily. Amount used: $15. Age of first use: 13. Date of Last Use: 08/11/17 Medical History: Anemia, Asthma, cardiac stent X2, HIV Psychiatric History: Patient denies h/o psychiatric hospitalizations, outpatient care, and suicide attempt. Physical/Sexual Abuse/Trauma History: Denies. Mental Status Exam - Mental Status Exam Alert and Oriented to: Time, Place, Person Cognitive Function: Good Patient Appearance: Well Groomed Mood: Hopeful Affect: Mood Congruent Patient Behavior: Appropriate, Cooperative Speech Pattern: Clear, Appropriate Voice Loudness: Normal Thought Process: Intact, Goal Oriented Hallucinations: Denies Suicidal Ideation: Denies Homicidal Ideation: Denies Insight/Judgement: Poor Sleep: Fair Appetite: Fair Muscle strength/Tone: Normal Gait/Station: Normal Psychiatric Findings - Problem List ([place] 1, 2,3) (1) Alcohol dependence with uncomplicated withdrawal Current Visit: Yes Status: Acute (2) Cocaine dependence Current Visit: Yes Status: Chronic Qualifiers: Substance use status: uncomplicated Qualified Code(s): F14.20 - Cocaine dependence, uncomplicated (3) Drug-induced mood disorder Current Visit: Yes Status: Acute (4) Cannabis dependence, uncomplicated Current Visit: Yes Status: Chronic - Initial Treatment Plan Initial Treatment Plan: Psychoeducation provided. Detoxification in progress. Observation.
[2017-08-12] MEDS: chlordiazePOXIDE HCL 25 MG CAPSULE PO SCH ×2 (17:17→22:15)
[2017-08-12] MEDS ORDERED: MELATONIN 5 MG TABLETS PO PRN (22:00)
[2017-08-12] MEDS: CLOTRIMAZOLE 1% CREAM 15 GM TUBE TP SCH (22:15)
[2017-08-12] MEDS: THIAMINE HCL 100 MG TABLET (FP) PO SCH (22:15)
[2017-08-13] MEDS: chlordiazePOXIDE HCL 25 MG CAPSULE PO SCH ×4 (05:43→22:47)
--- NOTE | 2017-08-13 08:24 | EKG ---
Test Reason : Blood Pressure : / mmHG Vent. Rate : 071 BPM Atrial Rate : 071 BPM P-R Int : 100 ms QRS Dur : 084 ms QT Int : 362 ms P-R-T Axes : 081 059 005 degrees QTc Int : 393 ms SINUS RHYTHM WITH SHORT ND OTHERWISE NORMAL ECG WHEN COMPARED WITH ECG OF 07-JUL-2017 14:13, NONSPECIFIC T WAVE ABNORMALITY HAS REPLACED INVERTED T WAVES IN INFERIOR LEADS Confirmed by ABIGAIL ANTHONY, YAMINI ([id number]) on 08/13/2017 8:23:23 AM Referred By: Confirmed By:YAMINI HAYES MD
[2017-08-13 10:08] LABS: HEMOGLOBIN 13.3 GM/dL (11.7-16.9); MCH 25.8 pg (25.7-33.7); MCHC 31.7 g/dl (32.0-35.9); MEAN CELL VOLUME 81.4 fl (80-96); MEAN PLT VOLUME 10.6 fl (7.5-11.1); PLATELET COUNT 202 K/MM3 (134-434); RBC 5.16 M/mm3 (4.00-5.60); RDW 14.4 % (11.9-15.9); WHITE BLOOD COUNT 3.2 K/mm3 (4.0-10.0)
[2017-08-13 10:33] LABS: CHLORIDE 104 mmol/L (98-107); POTASSIUM 4.2 mmol/L (3.5-5.1); SODIUM 141 mmol/L (136-145)
[2017-08-13 10:35] LABS: ALBUMIN 4.6 g/dl (3.4-5.0); ALK PHOS 108 U/L (45-117); ANION GAP 7 (8-16); BILIRUBIN,TOTAL 1.1 mg/dL (0.2-1.0); BLOOD UREA NITROGEN 12 mg/dL (7-18); CALCIUM 9.2 mg/dL (8.5-10.1); CO2 30 mmol/L (21-32); CREATININE 1.3 mg/dL (0.7-1.3); GLUCOSE,RANDOM 66 mg/dL (74-106); SGOT/AST 27 U/L (15-37); SGPT/ALT 27 U/L (12-78); TOT PROT 9.7 g/dl (6.4-8.2)
[2017-08-13] MEDS: CLOTRIMAZOLE 1% CREAM 15 GM TUBE TP SCH ×2 (10:49→22:47)
[2017-08-13] MEDS: PRENATAL VITAMINS W/ FOLIC ACID TABLET (FP) PO SCH (10:49)
--- NOTE | 2017-08-13 14:28 | PN ---
S CIWA - CIWA Score Nausea/Vomitin Muscle Tremors: 3 Anxiety: 3 Agitation: 2 Paroxysmal Sweats: 1-Minimal Palms Moist Orientation: 0-Oriented Tacttile Disturbances: 1-Very Mild Itch/Numbness Auditory Disturbances: 1-Very Mild Visual Disturbances: 0-None Headache: 2-Mild CIWA-Ar Total Score: 16 S Progress Note (SOAP) Subjective: ALERT,IRRITABLE,ANXIOUS,INTERRUPTED SLEEP,TREMOR,PAIN IN THE BODY AND BACK Objective: 08/13/17 14:26 Vital Signs Temperature 98.2 F 08/13/17 09:47 Pulse Rate 86 08/13/17 09:47 Respiratory Rate 16 08/13/17 09:47 Blood Pressure 106/56 08/13/17 09:47 O2 Sat by Pulse Oximetry (%) EKG NSR PROLONG QT 362/393 NO CHEST PAIN,NO SOB,NO DIZZINESS Laboratory Last Values WBC 3.2 K/mm3 (4.0-10.0) L 08/13/17 06:10 RBC 5.16 M/mm3 (4.00-5.60) 08/13/17 06:10 Hgb 13.3 GM/dL (11.7-16.9) D 08/13/17 06:10 Hct 42.0 % (35.4-49) 08/13/17 06:10 MCV 81.4 fl (80-96) 08/13/17 06:10 MCH 25.8 pg (25.7-33.7) 08/13/17 06:10 MCHC 31.7 g/dl (32.0-35.9) L 08/13/17 06:10 RDW 14.4 % (11.9-15.9) 08/13/17 06:10 Plt Count 202 K/MM3 (134-434) 08/13/17 06:10 MPV 10.6 fl (7.5-11.1) 08/13/17 06:10 Sodium 141 mmol/L (136-145) 08/13/17 06:10 Potassium 4.2 mmol/L (3.5-5.1) 08/13/17 06:10 Chloride 104 mmol/L (98-107) 08/13/17 06:10 Carbon Dioxide 30 mmol/L (21-32) 08/13/17 06:10 Anion Gap 7 (8-16) L 08/13/17 06:10 BUN 12 mg/dL (7-18) 08/13/17 06:10 Creatinine 1.3 mg/dL (0.7-1.3) 08/13/17 06:10 Creat Clearance w eGFR 58.20 (>60) 08/13/17 06:10 Random Glucose 66 mg/dL (74-106) L 08/13/17 06:10 Calcium 9.2 mg/dL (8.5-10.1) 08/13/17 06:10 Total Bilirubin 1.1 mg/dL (0.2-1.0) H D 08/13/17 06:10 AST 27 U/L (15-37) 08/13/17 06:10 ALT 27 U/L (12-78) 08/13/17 06:10 Alkaline Phosphatase 108 U/L (45-117) D 08/13/17 06:10 Total Protein 9.7 g/dl (6.4-8.2) H D 08/13/17 06:10 Albumin 4.6 g/dl (3.4-5.0) D 08/13/17 06:10 RPR Titer Nonreactive (NONREACTIVE) 08/13/17 06:10 Assessment: 08/13/17 14:28 WITHDRAWAL SYMPTOM Plan: CONTINUE DETOX,BGM IN AM
[2017-08-13] MEDS: THIAMINE HCL 100 MG TABLET (FP) PO SCH (22:47)
[2017-08-14] MEDS: chlordiazePOXIDE HCL 25 MG CAPSULE PO SCH ×2 (05:39→10:11)
[2017-08-14] MEDS: PRENATAL VITAMINS W/ FOLIC ACID TABLET (FP) PO SCH (10:10)
[2017-08-14] MEDS: CLOTRIMAZOLE 1% CREAM 15 GM TUBE TP SCH ×2 (10:11→22:45)
[2017-08-14] MEDS: hydrOXYzine PAMOATE 50 MG CAPSULE (FP) PO PRN ×2 (10:28→22:44)
[2017-08-14 14:35] LABS: URINE APPEARANCE CLEAR; URINE BILIRUBIN NEGATIVE (<2.0 mg/dL); URINE COLOR LTYELLOW; URINE GLUCOSE (UA) NEGATIVE (NEGATIVE); URINE KETONE NEGATIVE (NEGATIVE); URINE LEUK ESTERASE NEGATIVE (NEGATIVE); URINE NITRITE NEGATIVE (NEGATIVE); URINE PROTEIN NEGATIVE (NEGATIVE); URINE UROBILINOGEN NEGATIVE mg/dL (0.2-1.0)
--- NOTE | 2017-08-14 15:18 | PN ---
S CIWA - CIWA Score Nausea/Vomitin Muscle Tremors: 4-Moderate,w/Arms Extend Anxiety: 3 Agitation: 3 Paroxysmal Sweats: 3 Orientation: 0-Oriented Tacttile Disturbances: 1-Very Mild Itch/Numbness Auditory Disturbances: 0-None Visual Disturbances: 0-None Headache: 1-Very Mild CIWA-Ar Total Score: 18 BHS Progress Note (SOAP) Subjective: Tremor, interrupted sleep, anxious; c/o rash on chest requesting cream Objective: 08/14/17 15:15 Last Vital Signs Temp Pulse Resp BP Pulse Ox 97.7 F 85 18 135/86 08/14/17 14:03 08/14/17 14:03 08/14/17 14:03 08/14/17 14:03 PE: macular dark hyperpigmented rash anterior of chest Laboratory Tests 08/13/17 08/13/17 08/13/17 06:10 06:10 06:10 WBC 3.2 L RBC 5.16 Hgb 13.3 D Hct 42.0 MCV 81.4 MCH 25.8 MCHC 31.7 L RDW 14.4 Plt Count 202 MPV 10.6 Sodium 141 Potassium 4.2 Chloride 104 Carbon Dioxide 30 Anion Gap 7 L BUN 12 Creatinine 1.3 Creat Clearance w eGFR 58.20 Random Glucose 66 L Calcium 9.2 Total Bilirubin 1.1 H D AST 27 ALT 27 Alkaline Phosphatase 108 D Total Protein 9.7 H D Albumin 4.6 D Urine Color Urine Appearance Urine pH Ur Specific [place] Urine Protein Urine Glucose (UA) Urine Ketones Urine Blood Urine Nitrite Urine Bilirubin Urine Urobilinogen Ur Leukocyte Esterase RPR Titer Nonreactive 08/14/17 10:00 WBC RBC Hgb Hct MCV MCH MCHC RDW Plt Count MPV Sodium Potassium Chloride Carbon Dioxide Anion Gap BUN Creatinine Creat Clearance w eGFR Random Glucose Calcium Total Bilirubin AST ALT Alkaline Phosphatase Total Protein Albumin Urine Color Ltyellow Urine Appearance Clear Urine pH 7.0 D Ur Specific [place] 1.009 Urine Protein Negative Urine Glucose (UA) Negative Urine Ketones Negative Urine Blood Negative Urine Nitrite Negative Urine Bilirubin Negative Urine Urobilinogen Negative Ur Leukocyte Esterase Negative RPR Titer Labs noted: noted with azotemia Assessment: 08/14/17 15:17 Withdrawal symptoms Noted with dermatitis to chest and azotemia Plan: Continue detox Dermatitis: hydrocortisone cream 1% bid to chest Azotemia: encourage PO hydration (water)
[2017-08-14] MEDS: chlordiazePOXIDE 5 MG CAPSULE PO SCH ×2 (17:55→22:44)
[2017-08-14] MEDS: THIAMINE HCL 100 MG TABLET (FP) PO SCH (22:44)
[2017-08-14] MEDS: HYDROCORTISONE 1% TOPICAL CREAM 30 GM TUBE TP SCH (22:45)
[2017-08-15] MEDS: chlordiazePOXIDE 5 MG CAPSULE PO SCH ×2 (05:37→11:12)
[2017-08-15] MEDS: hydrOXYzine PAMOATE 50 MG CAPSULE (FP) PO PRN ×2 (05:38→11:13)
[2017-08-15] MEDS: PRENATAL VITAMINS W/ FOLIC ACID TABLET (FP) PO SCH (11:12)
[2017-08-15] MEDS: CLOTRIMAZOLE 1% CREAM 15 GM TUBE TP SCH ×2 (11:12→22:25)
[2017-08-15] MEDS: HYDROCORTISONE 1% TOPICAL CREAM 30 GM TUBE TP SCH ×2 (11:12→22:25)
--- NOTE | 2017-08-15 13:13 | PN ---
[facility] Progress Note (SOAP) Subjective: ALERT,IRRITABLE,INTERRUPTED SLEEP Objective: 08/15/17 13:12 Vital Signs Temperature 97.7 F 08/15/17 10:00 Pulse Rate 110 H 08/15/17 10:00 Respiratory Rate 20 08/15/17 10:00 Blood Pressure 120/77 08/15/17 10:00 O2 Sat by Pulse Oximetry (%) Assessment: 08/15/17 13:12 WITHDRAWAL SYMPTOM Plan: CONTINUE DETOX,DISCHARGE IN AM
[2017-08-15] MEDS: chlordiazePOXIDE HCL 10 MG CAPSULE PO SCH ×2 (17:14→22:25)
[2017-08-15] MEDS: THIAMINE HCL 100 MG TABLET (FP) PO SCH (22:25)
[2017-08-16] MEDS: hydrOXYzine PAMOATE 50 MG CAPSULE (FP) PO PRN (03:34)
[2017-08-16] MEDS: chlordiazePOXIDE HCL 10 MG CAPSULE PO SCH (05:25)
[2017-08-16 06:06] VITALS: BP 124/87; PULSE 95; TEMP 98.1
--- NOTE | 2017-08-16 08:15 | PN ---
S Progress Note (SOAP) Subjective: ALERT,NO COMPLAINT Objective: 08/16/17 08:12 Vital Signs Temperature 98.1 F 08/16/17 06:00 Pulse Rate 95 H 08/16/17 06:00 Respiratory Rate 18 08/16/17 06:00 Blood Pressure 124/87 08/16/17 06:00 O2 Sat by Pulse Oximetry (%) Assessment: 08/16/17 08:12 DETOX COMPLETED,NO WITHDRAWAL SYMPTOM Plan: DISCHARGE TODAY,FOLLOW UP WITH AFTER CARE PROGRAM ARRANGEMENT
--- NOTE | 2017-08-16 08:21 | DS ---
[facility] Detox Discharge Summary Admission Date: 08/12/17 Discharge Date: 08/16/17 - History Present History: Alcohol Dependence, Cannabis Dependence, Cocaine Dependence Additional Comments: FOLLOW UP WITH AFTER CARE PROGRAM ARRANGEMENT Pertinent Past History: HIV - Physical Exam Results Vital Signs: Vital Signs Temperature 98.1 F 08/16/17 06:00 Pulse Rate 95 H 08/16/17 06:00 Respiratory Rate 18 08/16/17 06:00 Blood Pressure 124/87 08/16/17 06:00 O2 Sat by Pulse Oximetry (%) Pertinent Admission Physical Exam Findings: WITHDRAWAL SIGNS AND SYMPTOM Laboratory Last Values WBC 3.2 K/mm3 (4.0-10.0) L 08/13/17 06:10 RBC 5.16 M/mm3 (4.00-5.60) 08/13/17 06:10 Hgb 13.3 GM/dL (11.7-16.9) D 08/13/17 06:10 Hct 42.0 % (35.4-49) 08/13/17 06:10 MCV 81.4 fl (80-96) 08/13/17 06:10 MCH 25.8 pg (25.7-33.7) 08/13/17 06:10 MCHC 31.7 g/dl (32.0-35.9) L 08/13/17 06:10 RDW 14.4 % (11.9-15.9) 08/13/17 06:10 Plt Count 202 K/MM3 (134-434) 08/13/17 06:10 MPV 10.6 fl (7.5-11.1) 08/13/17 06:10 Sodium 141 mmol/L (136-145) 08/13/17 06:10 Potassium 4.2 mmol/L (3.5-5.1) 08/13/17 06:10 Chloride 104 mmol/L (98-107) 08/13/17 06:10 Carbon Dioxide 30 mmol/L (21-32) 08/13/17 06:10 Anion Gap 7 (8-16) L 08/13/17 06:10 BUN 12 mg/dL (7-18) 08/13/17 06:10 Creatinine 1.3 mg/dL (0.7-1.3) 08/13/17 06:10 Creat Clearance w eGFR 58.20 (>60) 08/13/17 06:10 Random Glucose 66 mg/dL (74-106) L 08/13/17 06:10 Calcium 9.2 mg/dL (8.5-10.1) 08/13/17 06:10 Total Bilirubin 1.1 mg/dL (0.2-1.0) H D 08/13/17 06:10 AST 27 U/L (15-37) 08/13/17 06:10 ALT 27 U/L (12-78) 08/13/17 06:10 Alkaline Phosphatase 108 U/L (45-117) D 08/13/17 06:10 Total Protein 9.7 g/dl (6.4-8.2) H D 08/13/17 06:10 Albumin 4.6 g/dl (3.4-5.0) D 08/13/17 06:10 Urine Color Ltyellow 08/14/17 10:00 Urine Appearance Clear 08/14/17 10:00 Urine pH 7.0 (5.0-8.0) D 08/14/17 10:00 Ur Specific [place] 1.009 (1.001-1.035) 08/14/17 10:00 Urine Protein Negative (NEGATIVE) 08/14/17 10:00 Urine Glucose (UA) Negative (NEGATIVE) 08/14/17 10:00 Urine Ketones Negative (NEGATIVE) 08/14/17 10:00 Urine Blood Negative (NEGATIVE) 08/14/17 10:00 Urine Nitrite Negative (NEGATIVE) 08/14/17 10:00 Urine Bilirubin Negative (<2.0 mg/dL) 08/14/17 10:00 Urine Urobilinogen Negative mg/dL (0.2-1.0) 08/14/17 10:00 Ur Leukocyte Esterase Negative (NEGATIVE) 08/14/17 10:00 RPR Titer Nonreactive (NONREACTIVE) 08/13/17 06:10 Vital Signs Temperature 98.1 F 08/16/17 06:00 Pulse Rate 95 H 08/16/17 06:00 Respiratory Rate 18 08/16/17 06:00 Blood Pressure 124/87 08/16/17 06:00 O2 Sat by Pulse Oximetry (%) - Treatment Hospital Course: Detox Protocol Followed, Detoxed Safely, Responded well, Discharged Condition Good Patient has Accepted a Rehab Referral to: [facility] - Medication Discharge Medications: Ambulatory Orders Albuterol Sulfate Inhaler - [Ventolin HFA Inhaler -] 2 inh PO Q4H PRN #1 inhaler 05/29/17 Dapsone - 100 mg PO DAILY #30 tablet 07/11/17 Darunavir/Cobicistat [Prezcobix 800 mg-150 mg Tablet] 1 each PO DAILY #30 tablet 07/11/17 Emtricitabine/Tenofov Alafenam [Descovy 200-25 mg Tablet (Nf)] 1 each PO DAILY # 30 tablet 07/11/17 - Diagnosis (1) Alcohol dependence with uncomplicated withdrawal Status: Acute (2) Cannabis dependence, uncomplicated Status: Chronic (3) Cocaine dependence Status: Chronic Qualifiers: Substance use status: uncomplicated Qualified Code(s): F14.20 - Cocaine dependence, uncomplicated (4) HIV disease Status: Chronic (5) Asthma Status: Chronic Qualifiers: Asthma severity: mild Asthma persistence: unspecified Asthma complication type: uncomplicated Qualified Code(s): J45.909 - Unspecified asthma, uncomplicated - AMA Did Patient Leave Against Medical Advice: No
== END 2017-08-16 07:10 | disposition home or self-care (01) | DRG 897 ==
LOC: YASAS 08:28 → Y6N 11:24
PROVIDERS: ADMIT Internal Medicine; ATTEND Internal Medicine
PROC: HZ2ZZZZ Detoxification Services for Substance Abuse Treatment (ICD-10-PCS; principal; 2017-08-12)
DX: F10.230 Alcohol dependence with withdrawal, uncomplicated (principal); F14.20 Cocaine dependence, uncomplicated; F12.20 Cannabis dependence, uncomplicated; F19.24 Other psychoactive substance dependence with psychoactive substance-induced mood disorder; F34.1 Dysthymic disorder; Z21 Asymptomatic human immunodeficiency virus [HIV] infection status; J45.909 Unspecified asthma, uncomplicated; L40.3 Pustulosis palmaris et plantaris; R79.89 Other specified abnormal findings of blood chemistry; B37.2 Candidiasis of skin and nail; Z95.5 Presence of coronary angioplasty implant and graft; Z88.2 Allergy status to sulfonamides; Z91.013 Allergy to seafood; Z96.652 Presence of left artificial knee joint
CPT/HCPCS: 36415; 80053; 81003; 85027; 86593; 93005; 93010

== ENCOUNTER 2017-08-25 08:28 | Inpatient (IN) | payer OTHER ==
[2017-08-25 10:26] VITALS: BMI 25.2
--- NOTE | 2017-08-25 13:23 | HP ---
[facility] Rehab Assess/Revision - Admission History Admitted to Rehab from: [facility] Date of Admission to Rehab: 08/25/17 - Vital signs Vital Signs: Vital Signs Period Temp Pulse Resp BP Sys/Liz Pulse Ox Last 24 Hr 98.5 F 94 20 119/77 - Findings Detox History & Physical reviewed: Yes Concur with findings: Yes Comments/Additional Findings: for rehab as protocol Inpatient Rehab Admission - Initial Determination Are CD services needed?: Yes Free of communicable disease: Yes Not in need of hospitalization: Yes - Rehab Admission Criteria Previous failed treatment: Yes Poor recovery environment: Yes Comorbidities: Yes Lacks judgement: No Patient is meeting Inpatient Rehab admission criteria:: Yes
[2017-08-25] MEDS ORDERED: guaiFENesin/D-METHORPHAN HB 10 ML UNIT-DOSE CUPS PO PRN (13:26)
[2017-08-25] MEDS ORDERED: LOPERAMIDE HCL 2 MG CAPSULE PO PRN (13:26)
[2017-08-25] MEDS ORDERED: ACETAMINOPHEN 325 MG TABLET (FP) PO PRN (13:26)
[2017-08-25] MEDS ORDERED: MENTHOL/PHENOL 1 EACH UD MM PRN (13:26)
[2017-08-25] MEDS ORDERED: P-EPHED 60MG/TRIPROLIDI 2.5MG TABLET PO PRN (13:26)
[2017-08-25] MEDS ORDERED: MAG HYDROX/AL HYDROX/SIMETH 30 ML UNIT-DOSE CUP PO PRN (13:26)
[2017-08-25] MEDS ORDERED: MAGNESIUM HYDROX 2400MG/30ML ORAL SUSPENSION 30 ML CUP PO PRN (13:26)
[2017-08-25] MEDS ORDERED: MAGNESIUM CITRATE 300 ML BOTTLE PO PRN (13:26)
[2017-08-25] MEDS ORDERED: ALBUTEROL SO4 18 GM HFA INHALER IH PRN (13:28)
[2017-08-25] MEDS: TRIAMCINOLONE ACET 0.5% CREAM 15 GM TUBE TP SCH ×2 (17:10→21:56)
[2017-08-25] MEDS: THIAMINE HCL 100 MG TABLET (FP) PO SCH (21:56)
[2017-08-25] MEDS ORDERED: MELATONIN 5 MG TABLETS PO PRN (22:00)
[2017-08-26] MEDS: PRENATAL VITAMINS W/ FOLIC ACID TABLET (FP) PO SCH (09:47)
[2017-08-26] MEDS: TRIAMCINOLONE ACET 0.5% CREAM 15 GM TUBE TP SCH ×2 (09:48→21:11)
--- NOTE | 2017-08-26 10:46 | HP ---
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 This is one of multiple admissions. Medical History: Anemia, Asthma, cardiac stent X2, HIV Psychiatric History: Reports history of past treatment for anxiety while lived in [place]. He was prescribed Klonopin. Denies history of previous psychiatric hospitalization, reports that he feels anxious. Physical/Sexual Abuse/Trauma History: Patient denies history of sexual, physical and verbal abuse. 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 Vital Signs: Vital Signs - 24 hr 08/26/17 08/26/17 00:30 06:34 Temperature 98.7 F Pulse Rate 87 Respiratory 18 18 Rate Blood Pressure 130/84 Allergies/Adverse Reactions: Allergies Allergy/AdvReac Type Severity Reaction Status Date / Time sulfamethoxazole Allergy Severe Hives Verified 08/25/17 09:51 [From Bactrim] trimethoprim [From Bactrim] Allergy Severe Hives Verified 08/25/17 09:51 Fish Containing Products Allergy Swelling Verified 08/25/17 09:51 - Substance Abuse/Tx History Hx Alcohol Use: Yes Hx Substance Use: Yes Substance Use Type: Alcohol (4 pints daily vodka), Cocaine (475-100 daily ) Hx Substance Use Treatment: Yes Mental Status Exam - Mental Status Exam Alert and Oriented to: Time, Place, Person Cognitive Function: Good Patient Appearance: Well Groomed Mood: Sad, Anxious Affect: Appropriate, Mood Congruent Patient Behavior: Appropriate, Cooperative Speech Pattern: Clear, Appropriate Voice Loudness: Normal Thought Process: Intact, Goal Oriented Thought Disorder: Not Present Hallucinations: Denies Suicidal Ideation: Denies Homicidal Ideation: Denies Insight/Judgement: Fair Sleep: Poorly, Difficulty falling asleep Appetite: Fair Muscle strength/Tone: Normal Gait/Station: Normal Psychiatric Findings - Problem List ([place] 1, 2,3) (1) Anxiety disorder Current Visit: Yes Status: Acute (2) Alcohol dependence Current Visit: Yes Status: Acute (3) Drug-induced mood disorder Current Visit: No Status: Acute (4) Cannabis dependence, uncomplicated Current Visit: No Status: Chronic (5) Cocaine dependence Current Visit: No Status: Chronic - Initial Treatment Plan Initial Treatment Plan: Patient made aware of Vistaril and Melatonin PRN oders, will monitor progress as needed.
[2017-08-26] MEDS ORDERED: MELATONIN 5 MG TABLETS PO PRN (10:53)
[2017-08-26] MEDS: hydrOXYzine PAMOATE 50 MG CAPSULE (FP) PO PRN ×2 (11:33→17:39)
[2017-08-26] MEDS: DAPSONE 100 MG TABLET PO SCH (11:34)
[2017-08-26] MEDS: PATIENT'S OWN MEDICATION (NON-FORMULARY) (Emtricitabine/Tenofov Alafenam [Descovy 200-25 M PO SCH (13:01)
[2017-08-26] MEDS: PATIENT'S OWN MEDICATION (NON-FORMULARY) (Darunavir/Cobicistat [Prezcobix 800 Mg-150 Mg Ta PO SCH (13:02)
[2017-08-26] MEDS: THIAMINE HCL 100 MG TABLET (FP) PO SCH (21:12)
[2017-08-27] MEDS: PATIENT'S OWN MEDICATION (NON-FORMULARY) (Darunavir/Cobicistat [Prezcobix 800 Mg-150 Mg Ta PO SCH (07:06)
[2017-08-27] MEDS: DAPSONE 100 MG TABLET PO SCH (10:02)
[2017-08-27] MEDS: PRENATAL VITAMINS W/ FOLIC ACID TABLET (FP) PO SCH (10:02)
[2017-08-27] MEDS: PATIENT'S OWN MEDICATION (NON-FORMULARY) (Emtricitabine/Tenofov Alafenam [Descovy 200-25 M PO SCH (10:03)
[2017-08-27] MEDS: TRIAMCINOLONE ACET 0.5% CREAM 15 GM TUBE TP SCH ×2 (10:05→21:33)
[2017-08-27] MEDS: hydrOXYzine PAMOATE 50 MG CAPSULE (FP) PO PRN ×2 (10:52→18:50)
[2017-08-27] MEDS: THIAMINE HCL 100 MG TABLET (FP) PO SCH (18:50)
[2017-08-28] MEDS: PRENATAL VITAMINS W/ FOLIC ACID TABLET (FP) PO SCH (06:58)
[2017-08-28] MEDS: DAPSONE 100 MG TABLET PO SCH (07:01)
[2017-08-28] MEDS: PATIENT'S OWN MEDICATION (NON-FORMULARY) (Darunavir/Cobicistat [Prezcobix 800 Mg-150 Mg Ta PO SCH (07:02)
[2017-08-28] MEDS: hydrOXYzine PAMOATE 50 MG CAPSULE (FP) PO PRN ×2 (09:46→17:36)
[2017-08-28] MEDS: TRIAMCINOLONE ACET 0.5% CREAM 15 GM TUBE TP SCH ×2 (09:47→21:28)
[2017-08-28] MEDS: THIAMINE HCL 100 MG TABLET (FP) PO SCH (17:35)
[2017-08-29] MEDS: DAPSONE 100 MG TABLET PO SCH (06:50)
[2017-08-29] MEDS: PATIENT'S OWN MEDICATION (NON-FORMULARY) (Darunavir/Cobicistat [Prezcobix 800 Mg-150 Mg Ta PO SCH (06:51)
[2017-08-29] MEDS: PRENATAL VITAMINS W/ FOLIC ACID TABLET (FP) PO SCH (06:52)
[2017-08-29] MEDS: TRIAMCINOLONE ACET 0.5% CREAM 15 GM TUBE TP SCH (09:36)
[2017-08-29] MEDS: hydrOXYzine PAMOATE 50 MG CAPSULE (FP) PO PRN ×2 (11:19→17:34)
[2017-08-30] MEDS: PRENATAL VITAMINS W/ FOLIC ACID TABLET (FP) PO SCH (06:24)
[2017-08-30] MEDS: DAPSONE 100 MG TABLET PO SCH (06:25)
[2017-08-30] MEDS: EMTRICITABINE/TENOFOV ALAFENAM (DESCOVY) TABLET PO SCH (06:25)
[2017-08-30] MEDS: PATIENT'S OWN MEDICATION (NON-FORMULARY) (Darunavir/Cobicistat [Prezcobix 800 Mg-150 Mg Ta PO SCH (06:26)
[2017-08-30] MEDS: THIAMINE HCL 100 MG TABLET (FP) PO SCH (06:27)
[2017-08-30] MEDS: TRIAMCINOLONE ACET 0.5% CREAM 15 GM TUBE TP SCH ×2 (06:28→21:41)
[2017-08-30] MEDS: hydrOXYzine PAMOATE 50 MG CAPSULE (FP) PO PRN (13:59)
[2017-08-30] MEDS: IBUPROFEN 400 MG TABLET (FP) PO PRN (22:02)
[2017-08-31] MEDS: PRENATAL VITAMINS W/ FOLIC ACID TABLET (FP) PO SCH (06:53)
[2017-08-31] MEDS: DAPSONE 100 MG TABLET PO SCH (06:53)
[2017-08-31] MEDS: THIAMINE HCL 100 MG TABLET (FP) PO SCH (06:53)
[2017-08-31] MEDS: EMTRICITABINE/TENOFOV ALAFENAM (DESCOVY) TABLET PO SCH ×2 (06:55→06:56)
[2017-08-31] MEDS: TRIAMCINOLONE ACET 0.5% CREAM 15 GM TUBE TP SCH (06:56)
[2017-08-31] MEDS: PATIENT'S OWN MEDICATION (NON-FORMULARY) (Darunavir/Cobicistat [Prezcobix 800 Mg-150 Mg Ta PO SCH (07:00)
[2017-08-31 07:03] VITALS: BP 126/89; PULSE 86; TEMP 98.3
[2017-08-31] MEDS: IBUPROFEN 400 MG TABLET (FP) PO PRN (10:17)
--- NOTE | 2017-08-31 11:49 | PN ---
[facility] Progress Note Note: Patient presents with c/o sore throat and tearing of eyes. Denies fever, cough and SOB. Has history of non-compliance with HIV medication. Patient recently resumed treatment. Physical exam stable. Car S1s2, Resp CTA BL EXT no edema. ENT normal. A/P: continue current plan of care continue to monitor clinically. Vital Signs Temperature 98.3 F 08/31/17 07:02 Pulse Rate 86 08/31/17 07:02 Respiratory Rate 18 08/31/17 07:02 Blood Pressure 126/89 08/31/17 07:02 O2 Sat by Pulse Oximetry (%)
--- NOTE | 2017-08-31 20:01 | PN ---
S Progress Note Note: Roofing Technician received call from the Nurse regarding the above named patient who decided to sign out today without giving any significant reasoning for inability to continue inpatient treatment.According to the medical staff the patient is stable,not danger to self,others.
== END 2017-08-31 18:15 | disposition left against medical advice (07) | DRG 894 ==
LOC: YASAS 08:28 → Y5N 13:35
PROVIDERS: ADMIT Psychiatry & Neurology Psychiatry; ATTEND Psychiatry & Neurology Psychiatry
PROC: HZ42ZZZ Group Counseling for Substance Abuse Treatment, Cognitive-Behavioral (ICD-10-PCS; principal; 2017-08-25)
DX: F10.20 Alcohol dependence, uncomplicated (principal); B20 Human immunodeficiency virus [HIV] disease; F14.20 Cocaine dependence, uncomplicated; F41.9 Anxiety disorder, unspecified; F19.24 Other psychoactive substance dependence with psychoactive substance-induced mood disorder; L30.9 Dermatitis, unspecified; Z95.5 Presence of coronary angioplasty implant and graft; B34.9 Viral infection, unspecified; R63.4 Abnormal weight loss; Z68.25 Body mass index [BMI] 25.0-25.9, adult; Z88.8 Allergy status to other drugs, medicaments and biological substances

== ENCOUNTER 2017-12-15 08:26 | Inpatient (IN) | payer OTHER ==
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
[2017-12-15] MEDS ORDERED: ALBUTEROL SO4 8 GM HFA INHALER IH PRN (11:07)
[2017-12-15] MEDS ORDERED: hydrOXYzine PAMOATE 25 MG CAPSULE (FP) PO PRN (11:11)
[2017-12-15] MEDS ORDERED: MAGNESIUM CITRATE 300 ML BOTTLE PO PRN (11:11)
[2017-12-15] MEDS ORDERED: MAG HYDROX/AL HYDROX/SIMETH 30 ML UNIT-DOSE CUP PO PRN (11:11)
[2017-12-15] MEDS ORDERED: ACETAMINOPHEN 325 MG TABLET (FP) PO PRN (11:11)
[2017-12-15] MEDS ORDERED: MAGNESIUM HYDROX 2400MG/30ML ORAL SUSPENSION 30 ML CUP PO PRN (11:11)
[2017-12-15] MEDS ORDERED: chlordiazePOXIDE HCL 25 MG CAPSULE PO PRN (13:30)
--- NOTE | 2017-12-15 15:41 | EKG ---
Test Reason : Blood Pressure : / mmHG Vent. Rate : 096 BPM Atrial Rate : 096 BPM P-R Int : 106 ms QRS Dur : 070 ms QT Int : 330 ms P-R-T Axes : 080 053 -39 degrees QTc Int : 416 ms SINUS RHYTHM WITH SHORT OH NONSPECIFIC ST AND T WAVE ABNORMALITY ABNORMAL ECG WHEN COMPARED WITH ECG OF 12-AUG-2017 13:00, ST ELEVATION NOW PRESENT IN ANTERIOR LEADS Confirmed by GIGI ANTHONY, BENNIE ([id number]) on 12/15/2017 3:40:58 PM Referred By: Confirmed By:BENNIE YU MD
[2017-12-15] MEDS: chlordiazePOXIDE HCL 25 MG CAPSULE PO SCH ×2 (17:33→22:32)
[2017-12-15 17:53] LABS: URINE APPEARANCE TURBID; URINE BILIRUBIN NEGATIVE (<2.0 mg/dL); URINE COLOR YELLOW; URINE GLUCOSE (UA) NEGATIVE (NEGATIVE); URINE KETONE TRACE (NEGATIVE); URINE LEUK ESTERASE NEGATIVE (NEGATIVE); URINE NITRITE NEGATIVE (NEGATIVE); URINE UROBILINOGEN NEGATIVE mg/dL (0.2-1.0)
[2017-12-15 17:54] LABS: URINE PROTEIN 2+ (NEGATIVE)
[2017-12-15] MEDS ORDERED: MELATONIN 5 MG TABLETS PO PRN (22:00)
[2017-12-15] MEDS: THIAMINE HCL 100 MG TABLET (FP) PO SCH (22:31)
[2017-12-16] MEDS: chlordiazePOXIDE HCL 25 MG CAPSULE PO SCH ×4 (05:15→22:30)
[2017-12-16] MEDS: PATIENT'S OWN MEDICATION (NON-FORMULARY) (Darunavir/Cobicistat [Prezcobix 800 Mg-150 Mg Ta PO SCH (05:15)
[2017-12-16] MEDS: DAPSONE 100 MG PO SCH (05:15)
[2017-12-16] MEDS: PATIENT'S OWN MEDICATION (NON-FORMULARY) (Emtricitabine/Tenofov Alafenam [Descovy 200-25 M PO SCH (05:16)
[2017-12-16] MEDS ORDERED: DAPSONE 100 MG TABLET PO SCH (06:00)
[2017-12-16] MEDS ORDERED: hydrOXYzine PAMOATE 50 MG CAPSULE (FP) PO PRN (09:43)
[2017-12-16] MEDS ORDERED: PRENATAL VITAMINS W/ FOLIC ACID TABLET (FP) PO SCH (10:00)
[2017-12-16] MEDS: TRIAMCINOLONE ACET 0.025% CREAM 15 GM TUBE TP PRN (10:03)
[2017-12-16 11:17] LABS: HEMATOCRIT 39.9 % (35.4-49); HEMOGLOBIN 12.5 GM/dL (11.7-16.9); MCH 24.8 pg (25.7-33.7); MCHC 31.3 g/dl (32.0-35.9); MEAN CELL VOLUME 79.3 fl (80-96); MEAN PLT VOLUME 10.2 fl (7.5-11.1); PLATELET COUNT 196 K/MM3 (134-434); RBC 5.03 M/mm3 (4.00-5.60); RDW 14.8 % (11.9-15.9); WHITE BLOOD COUNT 3.7 K/mm3 (4.0-10.0)
[2017-12-16 11:18] LABS: ALBUMIN 4.1 g/dl (3.4-5.0); ANION GAP 11 MMOL/L (8-16); BLOOD UREA NITROGEN 17 mg/dL (7-18); CHLORIDE 101 mmol/L (98-107); CO2 27 mmol/L (21-32); GLUCOSE,RANDOM 64 mg/dL (74-106); SODIUM 139 mmol/L (136-145)
[2017-12-16 11:22] LABS: ALK PHOS 91 U/L (45-117); BILIRUBIN,TOTAL 0.4 mg/dL (0.2-1.0); CREATININE 1.6 mg/dL (0.55-1.3); SGOT/AST 80 U/L (15-37); SGPT/ALT 40 U/L (13-61); TOT PROT 8.4 g/dl (6.4-8.2)
--- NOTE | 2017-12-16 12:24 | PN ---
[facility] CIWA - CIWA Score Nausea/Vomitin-Mild Nausea/No Vomiting Muscle Tremors: 2 Anxiety: 3 Agitation: 3 Paroxysmal Sweats: 2 Orientation: 0-Oriented Tacttile Disturbances: 0-None Auditory Disturbances: 0-None Visual Disturbances: 1-Very Mild Sensitivity Headache: 0-None Present CIWA-Ar Total Score: 12 [facility] COWS - Scale Resting Pulse: 1= [place] 81-100 Sweatin= Chills/Flushing Restless Observation: 1= Difficult to Sit Still Pupil Size: 1= Pupils >than Normal Bone or Joint Aches: 1= Mild Discomfort Runny Nose/ Eye Tearin= Nasal Congestion GI Upset > 30mins: 2= Nausea/Diarrhea Tremor Observation of Outstretched Hands: 1= Tremor Bishop, Not Seen Yawning Observation: 1= 1-2x During Session Anxiety or Irritability: 2=Irritable/Anxious Goose Flesh Skin: 0=Smooth Skin COWS Score: 12 S Progress Note (SOAP) Subjective: anxious, restless, interrupted sleep Objective: 12/16/17 12:23 Vital Signs Temperature 98.7 F 12/16/17 09:07 Pulse Rate 96 H 12/16/17 09:07 Respiratory Rate 20 12/16/17 09:07 Blood Pressure 132/90 12/16/17 09:07 O2 Sat by Pulse Oximetry (%) Laboratory Last Values WBC 3.7 K/mm3 (4.0-10.0) L 12/16/17 06:00 RBC 5.03 M/mm3 (4.00-5.60) 12/16/17 06:00 Hgb 12.5 GM/dL (11.7-16.9) 12/16/17 06:00 Hct 39.9 % (35.4-49) 12/16/17 06:00 MCV 79.3 fl (80-96) L 12/16/17 06:00 MCH 24.8 pg (25.7-33.7) L 12/16/17 06:00 MCHC 31.3 g/dl (32.0-35.9) L 12/16/17 06:00 RDW 14.8 % (11.9-15.9) 12/16/17 06:00 Plt Count 196 K/MM3 (134-434) 12/16/17 06:00 MPV 10.2 fl (7.5-11.1) 12/16/17 06:00 Sodium 139 mmol/L (136-145) 12/16/17 06:00 Potassium 4.0 mmol/L (3.5-5.1) 12/16/17 06:00 Chloride 101 mmol/L (98-107) 12/16/17 06:00 Carbon Dioxide 27 mmol/L (21-32) 12/16/17 06:00 Anion Gap 11 MMOL/L (8-16) 12/16/17 06:00 BUN 17 mg/dL (7-18) 12/16/17 06:00 Creatinine 1.6 mg/dL (0.55-1.3) H 12/16/17 06:00 Creat Clearance w eGFR 45.80 (>60) 12/16/17 06:00 Random Glucose 64 mg/dL (74-106) L 12/16/17 06:00 Calcium 9.0 mg/dL (8.5-10.1) 12/16/17 06:00 Total Bilirubin 0.4 mg/dL (0.2-1.0) 12/16/17 06:00 AST 80 U/L (15-37) H 12/16/17 06:00 ALT 40 U/L (13-61) 12/16/17 06:00 Alkaline Phosphatase 91 U/L (45-117) 12/16/17 06:00 Total Protein 8.4 g/dl (6.4-8.2) H 12/16/17 06:00 Albumin 4.1 g/dl (3.4-5.0) 12/16/17 06:00 Urine Color Yellow 12/15/17 15:00 Urine Appearance Turbid 12/15/17 15:00 Urine pH 5.0 (5.0-8.0) D 12/15/17 15:00 Ur Specific [place] 1.031 (1.001-1.035) 12/15/17 15:00 Urine Protein 2+ (NEGATIVE) H 12/15/17 15:00 Urine Glucose (UA) Negative (NEGATIVE) 12/15/17 15:00 Urine Ketones Trace (NEGATIVE) H 12/15/17 15:00 Urine Blood Negative (NEGATIVE) 12/15/17 15:00 Urine Nitrite Negative (NEGATIVE) 12/15/17 15:00 Urine Bilirubin Negative (<2.0 mg/dL) 12/15/17 15:00 Urine Urobilinogen Negative mg/dL (0.2-1.0) 12/15/17 15:00 Ur Leukocyte Esterase Negative (NEGATIVE) 12/15/17 15:00 Urine WBC (Auto) 2 /hpf (3-5) 12/15/17 15:00 Urine RBC (Auto) 7 /hpf (0-3) 12/15/17 15:00 Assessment: 12/16/17 12:24 withdrawal sx Plan: increase PO fluids continue detox continue to monitor
[2017-12-16] MEDS ORDERED: TETRAHYDROZOLINE HCL EYE DROPS OU PRN (15:55)
[2017-12-16] MEDS: IBUPROFEN 400 MG TABLET (FP) PO PRN (15:56)
[2017-12-16] MEDS: THIAMINE HCL 100 MG TABLET (FP) PO SCH (22:30)
[2017-12-17] MEDS: chlordiazePOXIDE HCL 25 MG CAPSULE PO SCH ×2 (05:32→10:20)
[2017-12-17] MEDS: DAPSONE 100 MG PO SCH (05:32)
[2017-12-17] MEDS: TRIAMCINOLONE ACET 0.025% CREAM 15 GM TUBE TP PRN (05:58)
[2017-12-17] MEDS: PATIENT'S OWN MEDICATION (NON-FORMULARY) (Emtricitabine/Tenofov Alafenam [Descovy 200-25 M PO SCH (10:20)
[2017-12-17] MEDS: PATIENT'S OWN MEDICATION (NON-FORMULARY) (Darunavir/Cobicistat [Prezcobix 800 Mg-150 Mg Ta PO SCH (10:21)
[2017-12-17] MEDS: THIAMINE HCL 100 MG TABLET (FP) PO SCH (10:23)
--- NOTE | 2017-12-17 14:25 | PN ---
[facility] Progress Note (SOAP) Subjective: pt reports doing well w/ meds, denies symptoms Objective: 12/17/17 14:24 aaox 3 , nad , ambulating freely CBC, BMP 12/16/17 06:00 12/16/17 06:00 Vital Signs Temperature 97.0 F L 12/17/17 10:51 Pulse Rate 83 12/17/17 10:51 Respiratory Rate 20 12/17/17 10:51 Blood Pressure 112/74 12/17/17 10:51 O2 Sat by Pulse Oximetry (%) discussed w/ pt at length re : abnormal labs , urged pt to f/up w/ pcp upon d/ c , verbalizes understanding and agreement Assessment: 12/17/17 14:25 alcohol dependence Plan: continue taper
[2017-12-17] MEDS: chlordiazePOXIDE 5 MG CAPSULE PO SCH ×2 (17:20→22:11)
[2017-12-18] MEDS: chlordiazePOXIDE 5 MG CAPSULE PO SCH ×2 (05:25→10:20)
[2017-12-18] MEDS: PRENATAL VITAMINS W/ FOLIC ACID TABLET (FP) PO SCH ×2 (05:25→10:20)
[2017-12-18] MEDS: DAPSONE 100 MG PO SCH (06:10)
[2017-12-18] MEDS: PATIENT'S OWN MEDICATION (NON-FORMULARY) (Darunavir/Cobicistat [Prezcobix 800 Mg-150 Mg Ta PO SCH (07:47)
[2017-12-18] MEDS: PATIENT'S OWN MEDICATION (NON-FORMULARY) (Emtricitabine/Tenofov Alafenam [Descovy 200-25 M PO SCH (07:47)
[2017-12-18] MEDS: IBUPROFEN 400 MG TABLET (FP) PO PRN ×3 (07:56→22:21)
[2017-12-18] MEDS: THIAMINE HCL 100 MG TABLET (FP) PO SCH (10:21)
[2017-12-18] MEDS: TRIAMCINOLONE ACET 0.025% CREAM 15 GM TUBE TP PRN (10:22)
--- NOTE | 2017-12-18 15:57 | PN ---
[facility] Progress Note (SOAP) Subjective: Headache, nausea, sweating, chills; requesting norah wrap for left knee due to pain Objective: 12/18/17 15:54 Last Vital Signs Temp Pulse Resp BP Pulse Ox 97.8 F 76 18 121/80 12/18/17 09:43 12/18/17 09:43 12/18/17 09:43 12/18/17 09:43 Laboratory Tests 12/15/17 12/16/17 12/16/17 15:00 06:00 06:00 WBC 3.7 L RBC 5.03 Hgb 12.5 Hct 39.9 MCV 79.3 L MCH 24.8 L MCHC 31.3 L RDW 14.8 Plt Count 196 MPV 10.2 Sodium 139 Potassium 4.0 Chloride 101 Carbon Dioxide 27 Anion Gap 11 BUN 17 Creatinine 1.6 H Creat Clearance w eGFR 45.80 Random Glucose 64 L Calcium 9.0 Total Bilirubin 0.4 AST 80 H ALT 40 Alkaline Phosphatase 91 Total Protein 8.4 H Albumin 4.1 Urine Color Yellow Urine Appearance Turbid Urine pH 5.0 D Ur Specific [place] 1.031 Urine Protein 2+ H Urine Glucose (UA) Negative Urine Ketones Trace H Urine Blood Negative Urine Nitrite Negative Urine Bilirubin Negative Urine Urobilinogen Negative Ur Leukocyte Esterase Negative Urine WBC (Auto) 2 Urine RBC (Auto) 7 RPR Titer 12/16/17 06:00 WBC RBC Hgb Hct MCV MCH MCHC RDW Plt Count MPV Sodium Potassium Chloride Carbon Dioxide Anion Gap BUN Creatinine Creat Clearance w eGFR Random Glucose Calcium Total Bilirubin AST ALT Alkaline Phosphatase Total Protein Albumin Urine Color Urine Appearance Urine pH Ur Specific [place] Urine Protein Urine Glucose (UA) Urine Ketones Urine Blood Urine Nitrite Urine Bilirubin Urine Urobilinogen Ur Leukocyte Esterase Urine WBC (Auto) Urine RBC (Auto) RPR Titer Nonreactive Labs reviewed: serum creatine 1.6, abnormal UA Assessment: 12/18/17 15:55 Withdrawal symptoms Noted with RODRIGUEZ and abnormal UA Plan: Continue detox RODRIGUEZ: encouraged PO water hydration, repeat BMP Abnormal UA: repeat UA
[2017-12-18] MEDS: chlordiazePOXIDE HCL 10 MG CAPSULE PO SCH ×2 (17:17→22:20)
[2017-12-18] MEDS: BENZOCAINE/MENTH/CETYLPYRD CL 1 EACH LOZENGE MM PRN ×2 (19:14→22:22)
[2017-12-19] MEDS: BENZOCAINE/MENTH/CETYLPYRD CL 1 EACH LOZENGE MM PRN ×2 (04:22→10:12)
[2017-12-19] MEDS: chlordiazePOXIDE HCL 10 MG CAPSULE PO SCH ×2 (05:34→10:11)
[2017-12-19] MEDS: IBUPROFEN 400 MG TABLET (FP) PO PRN ×2 (05:44→16:36)
[2017-12-19] MEDS: DAPSONE 100 MG PO SCH (05:58)
[2017-12-19] MEDS: PATIENT'S OWN MEDICATION (NON-FORMULARY) (Darunavir/Cobicistat [Prezcobix 800 Mg-150 Mg Ta PO SCH (05:59)
[2017-12-19] MEDS: PATIENT'S OWN MEDICATION (NON-FORMULARY) (Emtricitabine/Tenofov Alafenam [Descovy 200-25 M PO SCH (06:00)
[2017-12-19] MEDS: THIAMINE HCL 100 MG TABLET (FP) PO SCH (10:11)
[2017-12-19] MEDS: PRENATAL VITAMINS W/ FOLIC ACID TABLET (FP) PO SCH (10:11)
[2017-12-19 11:06] LABS: CHLORIDE 107 mmol/L (98-107); POTASSIUM 4.3 mmol/L (3.5-5.1); SODIUM 144 mmol/L (136-145)
[2017-12-19 11:21] LABS: ANION GAP 8 MMOL/L (8-16); BLOOD UREA NITROGEN 12 mg/dL (7-18); CALCIUM 8.7 mg/dL (8.5-10.1); CO2 29 mmol/L (21-32); CREATININE 1.2 mg/dL (0.55-1.3); GLUCOSE,RANDOM 97 mg/dL (74-106)
--- NOTE | 2017-12-19 14:21 | PN ---
S Progress Note (SOAP) Subjective: no complaints offered Objective: 12/19/17 14:20 A & O x 3 gait steady VSS Assessment: 12/19/17 14:21 detox completed Plan: for transfer to rehab
--- NOTE | 2017-12-19 14:26 | DS ---
[facility] Detox Discharge Summary Admission Date: 12/15/17 Discharge Date: 12/19/17 - History Additional Comments: pt completed detox Will continue aftercare at [facility] rehab Pertinent Past History: AIDS Asthma Candidiasis of mouth Acute kidney injury - Physical Exam Results Vital Signs: Vital Signs Temperature 98.6 F 12/19/17 13:39 Pulse Rate 107 H 12/19/17 13:39 Respiratory Rate 20 12/19/17 13:39 Blood Pressure 140/84 12/19/17 13:39 O2 Sat by Pulse Oximetry (%) Pertinent Admission Physical Exam Findings: withdrawal sx - Treatment Hospital Course: Detox Protocol Followed, Detoxed Safely, Responded well, Discharged Condition Good, Rehab Referral Accepted Patient has Accepted a Rehab Referral to: [facility] Rehab - Medication Discharge Medications: Ambulatory Orders Albuterol Sulfate Inhaler - [Ventolin HFA Inhaler -] 2 inh PO Q4H PRN #1 inhaler 05/29/17 Dapsone - 100 mg PO DAILY #30 tablet 07/11/17 Darunavir/Cobicistat [Prezcobix 800 mg-150 mg Tablet] 1 each PO DAILY #30 tablet 07/11/17 Emtricitabine/Tenofov Alafenam [Descovy 200-25 mg Tablet (Nf)] 1 each PO DAILY # 30 tablet 07/11/17 - Diagnosis (1) Cocaine dependence Current Visit: Yes Status: Chronic (2) Cannabis dependence, uncomplicated Current Visit: Yes Status: Chronic (3) RODRIGUEZ (acute kidney injury) Current Visit: Yes Status: Acute (4) Abnormal finding on urinalysis Current Visit: Yes Status: Acute (5) Alcohol dependence with uncomplicated withdrawal Current Visit: Yes Status: Acute (6) Candidiasis of mouth Current Visit: Yes Status: Acute (7) Acquired immune deficiency syndrome (AIDS) Current Visit: Yes Status: Chronic (8) Asthma Current Visit: Yes Status: Chronic Qualifiers: Asthma severity: mild Asthma persistence: intermittent (9) History of anemia Current Visit: Yes Status: Chronic (10) Drug-induced mood disorder Current Visit: Yes Status: Chronic - AMA Did Patient Leave Against Medical Advice: No
[2017-12-19 14:50] VITALS: BMI 25.2
[2017-12-19 14:54] LABS: URINE APPEARANCE CLEAR; URINE BILIRUBIN NEGATIVE (<2.0 mg/dL); URINE COLOR LTYELLOW; URINE GLUCOSE (UA) NEGATIVE (NEGATIVE); URINE KETONE NEGATIVE (NEGATIVE); URINE LEUK ESTERASE NEGATIVE (NEGATIVE); URINE NITRITE NEGATIVE (NEGATIVE); URINE PROTEIN NEGATIVE (NEGATIVE); URINE UROBILINOGEN NEGATIVE mg/dL (0.2-1.0)
[2017-12-19] MEDS ORDERED: PT OWN MED DRAWER 7, Y5N ONE (15:26)
[2017-12-20] MEDS: DAPSONE 100 MG PO SCH (05:57)
[2017-12-20] MEDS: PATIENT'S OWN MEDICATION (NON-FORMULARY) (Emtricitabine/Tenofov Alafenam [Descovy 200-25 M PO SCH (05:58)
[2017-12-20] MEDS: PATIENT'S OWN MEDICATION (NON-FORMULARY) (Darunavir/Cobicistat [Prezcobix 800 Mg-150 Mg Ta PO SCH (05:58)
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
[2017-12-20] MEDS: TRIAMCINOLONE ACET 0.1% OINT 15 GM TUBE TP SCH ×3 (10:08→21:54)
[2017-12-20] MEDS: PRENATAL VITAMINS W/ FOLIC ACID TABLET (FP) PO SCH (10:08)
[2017-12-20] MEDS: THIAMINE HCL 100 MG TABLET (FP) PO SCH (10:09)
[2017-12-20] MEDS: IBUPROFEN 400 MG TABLET (FP) PO PRN (10:10)
[2017-12-20] MEDS ORDERED: PT OWN MED DRAWER 7, Y5N ONE (11:01)
[2017-12-20] MEDS ORDERED: ACETAMINOPHEN 325 MG TABLET (FP) PO PRN (13:39)
[2017-12-20] MEDS: TETRAHYDROZOLINE HCL EYE DROPS OU PRN (15:58)
[2017-12-21] MEDS: DAPSONE 100 MG PO SCH (05:54)
[2017-12-21] MEDS: PATIENT'S OWN MEDICATION (NON-FORMULARY) (Emtricitabine/Tenofov Alafenam [Descovy 200-25 M PO SCH (05:54)
[2017-12-21] MEDS: PATIENT'S OWN MEDICATION (NON-FORMULARY) (Darunavir/Cobicistat [Prezcobix 800 Mg-150 Mg Ta PO SCH (05:55)
[2017-12-21 06:58] VITALS: BP 130/86; PULSE 91; TEMP 97.9
[2017-12-21] MEDS: PRENATAL VITAMINS W/ FOLIC ACID TABLET (FP) PO SCH (09:57)
[2017-12-21] MEDS: THIAMINE HCL 100 MG TABLET (FP) PO SCH (09:57)
[2017-12-21] MEDS: TETRAHYDROZOLINE HCL EYE DROPS OU PRN (09:59)
[2017-12-21] MEDS: TRIAMCINOLONE ACET 0.1% OINT 15 GM TUBE TP SCH (09:59)
[2017-12-21] MEDS ORDERED: PT OWN MED DRAWER 7, Y5N ONE ×2 (17:38→17:39)
--- NOTE | 2017-12-21 18:11 | PN ---
S Progress Note Note: Psychiatric nurse practitoner note: Pt. leaving AMA. Pt. encouraged to stay but is focused on leaving. Pt. leaving AMA.
--- NOTE | 2017-12-21 18:38 | PN ---
[facility] Progress Note Note: Vital Signs Temperature 97.9 F 12/21/17 06:57 Pulse Rate 91 H 12/21/17 06:57 Respiratory Rate 20 12/21/17 06:57 Blood Pressure 130/86 12/21/17 06:57 O2 Sat by Pulse Oximetry (%) Patient insist on leaving AMA. Encourage to continue and complete program. Patient medically stable. Denies suicidal / homicidal ideation. Patient to follow up with primary care provider in 1 - 2 weeks.
== END 2017-12-21 18:00 | disposition left against medical advice (07) | DRG 894 ==
LOC: YASAS 08:26 → Y3N 11:58 → Y3W 12-19 14:24
PROVIDERS: ATTEND Psychiatry & Neurology Psychiatry
PROC: HZ42ZZZ Group Counseling for Substance Abuse Treatment, Cognitive-Behavioral (ICD-10-PCS; principal; 2017-12-15)
DX: F10.20 Alcohol dependence, uncomplicated (principal); B20 Human immunodeficiency virus [HIV] disease; F14.20 Cocaine dependence, uncomplicated; F19.282 Other psychoactive substance dependence with psychoactive substance-induced sleep disorder; B37.0 Candidal stomatitis; F12.20 Cannabis dependence, uncomplicated; F19.24 Other psychoactive substance dependence with psychoactive substance-induced mood disorder; J45.20 Mild intermittent asthma, uncomplicated; D64.9 Anemia, unspecified; I25.10 Atherosclerotic heart disease of native coronary artery without angina pectoris; I25.2 Old myocardial infarction; Z95.5 Presence of coronary angioplasty implant and graft; R82.90 Unspecified abnormal findings in urine; Z86.19 Personal history of other infectious and parasitic diseases; Z91.5 Personal history of self-harm; Z96.652 Presence of left artificial knee joint; Z91.013 Allergy to seafood; Z88.8 Allergy status to other drugs, medicaments and biological substances; L30.9 Dermatitis, unspecified
CPT/HCPCS: 36415; 80048; 80053; 81003; 81015; 85027; 86593; 93005; 93010

== ENCOUNTER 2018-02-03 20:09 | Inpatient (IN) | payer OTHER ==
[2018-02-03 21:02] VITALS: BMI 22.8
[2018-02-03] MEDS ORDERED: MELATONIN 5 MG TABLETS PO PRN (22:00)
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
[2018-02-03] MEDS ORDERED: LOPERAMIDE HCL 2 MG CAPSULE PO PRN (23:20)
[2018-02-03] MEDS ORDERED: MAGNESIUM CITRATE 300 ML BOTTLE PO PRN (23:20)
[2018-02-03] MEDS ORDERED: MAG HYDROX/AL HYDROX/SIMETH 30 ML UNIT-DOSE CUP PO PRN (23:20)
[2018-02-03] MEDS ORDERED: MAGNESIUM HYDROX 2400MG/30ML ORAL SUSPENSION 30 ML CUP PO PRN (23:20)
[2018-02-03] MEDS ORDERED: IBUPROFEN 400 MG TABLET (FP) PO PRN (23:20)
[2018-02-03] MEDS ORDERED: AMMONIUM LACTATE 12% LOTION 225 GM BOTTLE TP PRN (23:22)
[2018-02-03] MEDS ORDERED: COLLOIDAL OATMEAL 1 BAR EACH TP PRN (23:22)
[2018-02-03] MEDS ORDERED: ALBUTEROL SO4 8 GM HFA INHALER IH PRN (23:24)
[2018-02-03] MEDS ORDERED: chlordiazePOXIDE HCL 25 MG CAPSULE PO ONE (23:39)
[2018-02-03] MEDS ORDERED: chlordiazePOXIDE HCL 25 MG CAPSULE PO PRN (23:39)
[2018-02-04] MEDS: chlordiazePOXIDE HCL 25 MG CAPSULE PO SCH ×5 (00:25→22:56)
[2018-02-04] MEDS: ACETAMINOPHEN 325 MG TABLET (FP) PO PRN ×3 (00:27→17:42)
--- NOTE | 2018-02-04 10:13 | PN ---
[facility] CIWA - CIWA Score Nausea/Vomitin-No Nausea/No Vomiting Muscle Tremors: 2 Anxiety: 2 Agitation: 3 Paroxysmal Sweats: 2 Orientation: 0-Oriented Tacttile Disturbances: 2-Mild Itch/Numbness/Burn Auditory Disturbances: 0-None Visual Disturbances: 1-Very Mild Sensitivity Headache: 0-None Present CIWA-Ar Total Score: 12 S Progress Note (SOAP) Subjective: joint pain, body aches, interrupted sleep , pruritus Objective: 02/04/18 10:13 Vital Signs Temperature 97.0 F L 02/04/18 09:15 Pulse Rate 94 H 02/04/18 09:15 Respiratory Rate 18 02/04/18 09:15 Blood Pressure 106/68 02/04/18 09:15 O2 Sat by Pulse Oximetry (%) Laboratory Last Values WBC 2.6 K/mm3 (4.0-10.0) L 02/04/18 08:00 RBC 4.44 M/mm3 (4.00-5.60) 02/04/18 08:00 Hgb 11.6 GM/dL (11.7-16.9) L 02/04/18 08:00 Hct 35.9 % (35.4-49) 02/04/18 08:00 MCV 80.9 fl (80-96) 02/04/18 08:00 MCH 26.1 pg (25.7-33.7) 02/04/18 08:00 MCHC 32.2 g/dl (32.0-35.9) 02/04/18 08:00 RDW 15.7 % (11.9-15.9) 02/04/18 08:00 Plt Count 178 K/MM3 (134-434) 02/04/18 08:00 MPV 10.4 fl (7.5-11.1) 02/04/18 08:00 Sodium 140 mmol/L (136-145) 02/04/18 08:00 Potassium 4.1 mmol/L (3.5-5.1) 02/04/18 08:00 Chloride 104 mmol/L (98-107) 02/04/18 08:00 Carbon Dioxide 26 mmol/L (21-32) 02/04/18 08:00 Anion Gap 11 MMOL/L (8-16) 02/04/18 08:00 BUN 22 mg/dL (7-18) H 02/04/18 08:00 Creatinine 1.4 mg/dL (0.55-1.3) H 02/04/18 08:00 Creat Clearance w eGFR 53.43 (>60) 02/04/18 08:00 Random Glucose 91 mg/dL (74-106) 02/04/18 08:00 Calcium 8.5 mg/dL (8.5-10.1) 02/04/18 08:00 Total Bilirubin 0.4 mg/dL (0.2-1) 02/04/18 08:00 AST 27 U/L (15-37) 02/04/18 08:00 ALT 30 U/L (13-61) 02/04/18 08:00 Alkaline Phosphatase 79 U/L (45-117) 02/04/18 08:00 Total Protein 7.1 g/dl (6.4-8.2) 02/04/18 08:00 Albumin 3.6 g/dl (3.4-5.0) 02/04/18 08:00 RPR Titer Nonreactive (NONREACTIVE) 02/04/18 08:00 repeat CBC Aox3 no distress no adventitious breath sounds skin intact, + dry skin full ROM ambulatory, + pain left knee Assessment: 02/04/18 14:09 withdrawal symptoms Plan: repeat CBC increase po fluids continue detox continue to monitor
[2018-02-04 10:16] LABS: HEMATOCRIT 35.9 % (35.4-49); HEMOGLOBIN 11.6 GM/dL (11.7-16.9); MCH 26.1 pg (25.7-33.7); MCHC 32.2 g/dl (32.0-35.9); MEAN CELL VOLUME 80.9 fl (80-96); MEAN PLT VOLUME 10.4 fl (7.5-11.1); PLATELET COUNT 178 K/MM3 (134-434); RBC 4.44 M/mm3 (4.00-5.60); RDW 15.7 % (11.9-15.9); WHITE BLOOD COUNT 2.6 K/mm3 (4.0-10.0)
[2018-02-04] MEDS: PRENATAL VITAMINS W/ FOLIC ACID TABLET (FP) PO SCH (10:30)
[2018-02-04 10:53] LABS: ALBUMIN 3.6 g/dl (3.4-5.0); ALK PHOS 79 U/L (45-117); ANION GAP 11 MMOL/L (8-16); BILIRUBIN,TOTAL 0.4 mg/dL (0.2-1); BLOOD UREA NITROGEN 22 mg/dL (7-18); CALCIUM 8.5 mg/dL (8.5-10.1); CHLORIDE 104 mmol/L (98-107); CO2 26 mmol/L (21-32); CREATININE 1.4 mg/dL (0.55-1.3); GLUCOSE,RANDOM 91 mg/dL (74-106); POTASSIUM 4.1 mmol/L (3.5-5.1); SGOT/AST 27 U/L (15-37); SGPT/ALT 30 U/L (13-61); SODIUM 140 mmol/L (136-145); TOT PROT 7.1 g/dl (6.4-8.2)
[2018-02-04] MEDS: guaiFENesin 200 MG/10 ML 10 ML UNIT-DOSE CUPS PO PRN ×2 (11:23→17:43)
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
[2018-02-04] MEDS: VITAMINS A AND D TOPICAL OINTMENT 60 GM TUBE TP SCH ×2 (14:22→22:52)
[2018-02-04] MEDS: DAPSONE 100 MG TABLET PO SCH (14:23)
[2018-02-04] MEDS ORDERED: diphenhydrAMINE HCL 25 MG CAPSULE (FP) PO PRN (22:00)
[2018-02-04] MEDS: THIAMINE HCL 100 MG TABLET (FP) PO SCH (22:52)
[2018-02-04] MEDS: HYDROCORTISONE 1% TOPICAL OINT 30 GM TUBE TP PRN (22:53)
[2018-02-04] MEDS: MENTHOL/PHENOL 1 EACH UD MM PRN (22:53)
[2018-02-05] MEDS: chlordiazePOXIDE HCL 25 MG CAPSULE PO SCH ×3 (05:12→17:07)
[2018-02-05] MEDS: VITAMINS A AND D TOPICAL OINTMENT 60 GM TUBE TP SCH ×3 (06:37→22:14)
[2018-02-05] MEDS: PRENATAL VITAMINS W/ FOLIC ACID TABLET (FP) PO SCH (10:25)
[2018-02-05] MEDS: DAPSONE 100 MG TABLET PO SCH (10:26)
[2018-02-05] MEDS: ACETAMINOPHEN 325 MG TABLET (FP) PO PRN (10:26)
[2018-02-05] MEDS: guaiFENesin 200 MG/10 ML 10 ML UNIT-DOSE CUPS PO PRN (10:27)
[2018-02-05] MEDS: HYDROCORTISONE 1% TOPICAL OINT 30 GM TUBE TP PRN (10:28)
[2018-02-05 10:39] LABS: URINE APPEARANCE TURBID; URINE BILIRUBIN NEGATIVE (<2.0 mg/dL); URINE COLOR YELLOW; URINE GLUCOSE (UA) NEGATIVE (NEGATIVE); URINE KETONE NEGATIVE (NEGATIVE); URINE LEUK ESTERASE NEGATIVE (NEGATIVE); URINE NITRITE NEGATIVE (NEGATIVE); URINE PROTEIN NEGATIVE (NEGATIVE); URINE UROBILINOGEN NEGATIVE mg/dL (0.2-1.0)
[2018-02-05 10:41] LABS: EOS % 6.6 % (0-4.5); HEMATOCRIT 36.3 % (35.4-49); MCH 26.6 pg (25.7-33.7); MCHC 32.9 g/dl (32.0-35.9); MEAN CELL VOLUME 80.9 fl (80-96); MONO % 19.6 % (3.8-10.2); NEUT % 44.8 % (42.8-82.8); PLATELET COUNT 172 K/MM3 (134-434); RDW 15.5 % (11.9-15.9); WHITE BLOOD COUNT 3.2 K/mm3 (4.0-10.0)
--- NOTE | 2018-02-05 11:37 | EKG ---
Test Reason : Blood Pressure : / mmHG Vent. Rate : 092 BPM Atrial Rate : 092 BPM P-R Int : 108 ms QRS Dur : 076 ms QT Int : 346 ms P-R-T Axes : 077 049 -45 degrees QTc Int : 427 ms SINUS RHYTHM WITH SHORT TN MINIMAL VOLTAGE CRITERIA FOR LVH, MAY BE NORMAL VARIANT ST ELEVATION, CONSIDER EARLY REPOLARIZATION, PERICARDITIS, OR INJURY NONSPECIFIC ST ABNORMALITY Confirmed by JUHI GARCIA MD ([id number]) on 02/05/2018 11:36:42 AM Referred By: Confirmed By:JUHI GARCIA MD
[2018-02-05 12:43] LABS: ACANTHOCYTES 0; ANISOCYTOSIS 0; HELMET CELLS 0; HOWELL-JOLLY BODIES 0; MACROCYTOSIS 0; OVALOCYTE 0; PLATELET ESTIMATE NORMAL; ROULEAU 0; SICKELED CELLS 0; TARGET CELLS 0; TEAR DROP CELLS 0; TOXIC GRANULATION 0
[2018-02-05] MEDS: EMTRICITABINE 200MG/TENOFOVIR 300MG PO SCH (17:07)
--- NOTE | 2018-02-05 17:11 | PN ---
S CIWA - CIWA Score Nausea/Vomitin Muscle Tremors: 4-Moderate,w/Arms Extend Anxiety: 4-Mod. Anxious/Guarded Agitation: 3 Paroxysmal Sweats: 3 Orientation: 0-Oriented Tacttile Disturbances: 0-None Auditory Disturbances: 0-None Visual Disturbances: 0-None Headache: 0-None Present CIWA-Ar Total Score: 16 S Progress Note (SOAP) Subjective: Tremor, sweating. Patient requesting to resume his anti-retroviral meds. Objective: 02/05/18 17:09 Last Vital Signs Temp Pulse Resp BP Pulse Ox 98.5 F 93 H 20 121/76 02/05/18 13:42 02/05/18 13:42 02/05/18 13:42 02/05/18 13:42 Laboratory Tests 02/04/18 02/04/18 02/04/18 08:00 08:00 08:00 WBC 2.6 L RBC 4.44 Hgb 11.6 L Hct 35.9 MCV 80.9 MCH 26.1 MCHC 32.2 RDW 15.7 Plt Count 178 MPV 10.4 Absolute Neuts (auto) Neutrophils % Neutrophils % (Manual) Band Neutrophils % Lymphocytes % Lymphocytes % (Manual) Monocytes % Monocytes % (Manual) Eosinophils % Eosinophils % (Manual) Basophils % Basophils % (Manual) Myelocytes % (Man) Promyelocytes % (Man) Blast Cells % (Manual) Nucleated RBC % Metamyelocytes Hypochromia Toxic Granulation Dohle Bodies Platelet Estimate Polychromasia Poikilocytosis Basophilic Stippling Anisocytosis Microcytosis Macrocytosis Spherocytes Sickle Cells Target Cells Tear Drop Cells Ovalocytes Stomatocytes Helmet Cells [place]un-[place] Bodies [place] Rings [place] Cells Acanthocytes (Spur) Rouleaux Fragmented RBCs Schistocytes Sodium 140 Potassium 4.1 Chloride 104 Carbon Dioxide 26 Anion Gap 11 BUN 22 H Creatinine 1.4 H Creat Clearance w eGFR 53.43 Random Glucose 91 Calcium 8.5 Total Bilirubin 0.4 AST 27 ALT 30 Alkaline Phosphatase 79 Total Protein 7.1 Albumin 3.6 Urine Color Urine Appearance Urine pH Ur Specific [place] Urine Protein Urine Glucose (UA) Urine Ketones Urine Blood Urine Nitrite Urine Bilirubin Urine Urobilinogen Ur Leukocyte Esterase RPR Titer Nonreactive 02/05/18 02/05/18 07:44 08:40 WBC 3.2 L RBC 4.50 Hgb 12.0 Hct 36.3 MCV 80.9 MCH 26.6 MCHC 32.9 RDW 15.5 Plt Count 172 MPV 10.0 Absolute Neuts (auto) 1.4 L Neutrophils % 44.8 D Neutrophils % (Manual) 40.0 L Band Neutrophils % 3.1 Lymphocytes % 28.0 Lymphocytes % (Manual) 25.3 Monocytes % 19.6 H D Monocytes % (Manual) 20 H Eosinophils % 6.6 H Eosinophils % (Manual) 7.4 H Basophils % 1.0 D Basophils % (Manual) 2.1 H Myelocytes % (Man) 0 Promyelocytes % (Man) 0 Blast Cells % (Manual) 0 Nucleated RBC % 0 Metamyelocytes 0 Hypochromia 0 Toxic Granulation 0 Dohle Bodies 0 Platelet Estimate Normal Polychromasia 0 Poikilocytosis 0 Basophilic Stippling 0 Anisocytosis 0 Microcytosis 0 Macrocytosis 0 Spherocytes 0 Sickle Cells 0 Target Cells 0 Tear Drop Cells 0 Ovalocytes 0 Stomatocytes 0 Helmet Cells 0 Yun-[place] Bodies 0 [place] Rings 0 Gerardo Cells 0 Acanthocytes (Spur) 0 Rouleaux 0 Fragmented RBCs 0 Schistocytes 0 Sodium Potassium Chloride Carbon Dioxide Anion Gap BUN Creatinine Creat Clearance w eGFR Random Glucose Calcium Total Bilirubin AST ALT Alkaline Phosphatase Total Protein Albumin Urine Color Yellow Urine Appearance Turbid Urine pH 5.0 Ur Specific [place] 1.027 Urine Protein Negative Urine Glucose (UA) Negative Urine Ketones Negative Urine Blood Negative Urine Nitrite Negative Urine Bilirubin Negative Urine Urobilinogen Negative Ur Leukocyte Esterase Negative RPR Titer Labs reviewed: bun 22, creatinine 1.4 Assessment: 02/05/18 17:10 Withdrawal symptoms Noted with prerenal azotemia Plan: Continue detox Prerenal azotemia: encouraged PO water intake
[2018-02-05] MEDS: THIAMINE HCL 100 MG TABLET (FP) PO SCH (22:14)
[2018-02-05] MEDS: chlordiazePOXIDE 5 MG CAPSULE PO SCH (22:14)
[2018-02-06] MEDS: chlordiazePOXIDE 5 MG CAPSULE PO SCH ×3 (05:48→17:55)
[2018-02-06] MEDS: VITAMINS A AND D TOPICAL OINTMENT 60 GM TUBE TP SCH ×3 (06:12→22:05)
[2018-02-06] MEDS: EMTRICITABINE 200MG/TENOFOVIR 300MG PO SCH (06:12)
[2018-02-06] MEDS: DARUNAVIR 800 MG/COBICISTAT 150MG TABLET PO SCH (10:33)
[2018-02-06] MEDS: DAPSONE 100 MG TABLET PO SCH (10:34)
[2018-02-06] MEDS: PRENATAL VITAMINS W/ FOLIC ACID TABLET (FP) PO SCH (10:34)
[2018-02-06] MEDS: MENTHOL/PHENOL 1 EACH UD MM PRN ×2 (10:35→17:58)
[2018-02-06] MEDS: guaiFENesin 200 MG/10 ML 10 ML UNIT-DOSE CUPS PO PRN ×2 (10:35→17:58)
--- NOTE | 2018-02-06 14:10 | PN ---
S Progress Note (SOAP) Subjective: Tremor, agitation. Patient c/o sore throat x 2 days and soreness is the same. He is requesting tylenol and cough syrup stating they were helping but nurse told him they were discontinued. Objective: 02/06/18 14:07 Last Vital Signs Temp Pulse Resp BP Pulse Ox 98.5 F 87 18 123/78 02/06/18 13:25 02/06/18 13:25 02/06/18 13:25 02/06/18 13:25 PE: Throat: no erythema or exudates noted Laboratory Tests 02/04/18 02/04/18 02/04/18 08:00 08:00 08:00 WBC 2.6 L RBC 4.44 Hgb 11.6 L Hct 35.9 MCV 80.9 MCH 26.1 MCHC 32.2 RDW 15.7 Plt Count 178 MPV 10.4 Absolute Neuts (auto) Neutrophils % Neutrophils % (Manual) Band Neutrophils % Lymphocytes % Lymphocytes % (Manual) Monocytes % Monocytes % (Manual) Eosinophils % Eosinophils % (Manual) Basophils % Basophils % (Manual) Myelocytes % (Man) Promyelocytes % (Man) Blast Cells % (Manual) Nucleated RBC % Metamyelocytes Hypochromia Toxic Granulation Dohle Bodies Platelet Estimate Polychromasia Poikilocytosis Basophilic Stippling Anisocytosis Microcytosis Macrocytosis Spherocytes Sickle Cells Target Cells Tear Drop Cells Ovalocytes Stomatocytes Helmet Cells Yun-[place] Bodies [place] Rings Gerardo Cells Acanthocytes (Spur) Rouleaux Fragmented RBCs Schistocytes Sodium 140 Potassium 4.1 Chloride 104 Carbon Dioxide 26 Anion Gap 11 BUN 22 H Creatinine 1.4 H Creat Clearance w eGFR 53.43 Random Glucose 91 Calcium 8.5 Total Bilirubin 0.4 AST 27 ALT 30 Alkaline Phosphatase 79 Total Protein 7.1 Albumin 3.6 Urine Color Urine Appearance Urine pH Ur Specific [place] Urine Protein Urine Glucose (UA) Urine Ketones Urine Blood Urine Nitrite Urine Bilirubin Urine Urobilinogen Ur Leukocyte Esterase RPR Titer Nonreactive 02/05/18 02/05/18 07:44 08:40 WBC 3.2 L RBC 4.50 Hgb 12.0 Hct 36.3 MCV 80.9 MCH 26.6 MCHC 32.9 RDW 15.5 Plt Count 172 MPV 10.0 Absolute Neuts (auto) 1.4 L Neutrophils % 44.8 D Neutrophils % (Manual) 40.0 L Band Neutrophils % 3.1 Lymphocytes % 28.0 Lymphocytes % (Manual) 25.3 Monocytes % 19.6 H D Monocytes % (Manual) 20 H Eosinophils % 6.6 H Eosinophils % (Manual) 7.4 H Basophils % 1.0 D Basophils % (Manual) 2.1 H Myelocytes % (Man) 0 Promyelocytes % (Man) 0 Blast Cells % (Manual) 0 Nucleated RBC % 0 Metamyelocytes 0 Hypochromia 0 Toxic Granulation 0 Dohle Bodies 0 Platelet Estimate Normal Polychromasia 0 Poikilocytosis 0 Basophilic Stippling 0 Anisocytosis 0 Microcytosis 0 Macrocytosis 0 Spherocytes 0 Sickle Cells 0 Target Cells 0 Tear Drop Cells 0 Ovalocytes 0 Stomatocytes 0 Helmet Cells 0 Yun-[place] Bodies 0 [place] Rings 0 Gerardo Cells 0 Acanthocytes (Spur) 0 Rouleaux 0 Fragmented RBCs 0 Schistocytes 0 Sodium Potassium Chloride Carbon Dioxide Anion Gap BUN Creatinine Creat Clearance w eGFR Random Glucose Calcium Total Bilirubin AST ALT Alkaline Phosphatase Total Protein Albumin Urine Color Yellow Urine Appearance Turbid Urine pH 5.0 Ur Specific [place] 1.027 Urine Protein Negative Urine Glucose (UA) Negative Urine Ketones Negative Urine Blood Negative Urine Nitrite Negative Urine Bilirubin Negative Urine Urobilinogen Negative Ur Leukocyte Esterase Negative RPR Titer Labs reviewed Assessment: 02/06/18 14:08 Withdrawal symptoms Plan: Continue detox Encouraged PO water intake Continue tylenol and robitussin prn for sore throat
[2018-02-06] MEDS: ACETAMINOPHEN 325 MG TABLET (FP) PO PRN (17:57)
[2018-02-06] MEDS: chlordiazePOXIDE HCL 10 MG CAPSULE PO SCH (22:05)
[2018-02-06] MEDS: THIAMINE HCL 100 MG TABLET (FP) PO SCH (22:05)
[2018-02-07] MEDS: chlordiazePOXIDE HCL 10 MG CAPSULE PO SCH ×2 (05:57→10:29)
[2018-02-07] MEDS: DARUNAVIR 800 MG/COBICISTAT 150MG TABLET PO SCH (05:59)
[2018-02-07] MEDS: EMTRICITABINE 200MG/TENOFOVIR 300MG PO SCH (06:26)
[2018-02-07] MEDS: VITAMINS A AND D TOPICAL OINTMENT 60 GM TUBE TP SCH (06:26)
[2018-02-07 09:27] VITALS: BP 112/76; PULSE 112; TEMP 97.9
[2018-02-07] MEDS: PRENATAL VITAMINS W/ FOLIC ACID TABLET (FP) PO SCH (10:29)
[2018-02-07] MEDS: DAPSONE 100 MG TABLET PO SCH (10:29)
--- NOTE | 2018-02-07 12:08 | DS ---
[facility] Detox Discharge Summary Admission Date: 02/03/18 Discharge Date: 02/07/18 - History Present History: Alcohol Dependence, Cannabis Dependence, Cocaine Dependence, Sedative Dependence Additional Comments: Patient had verbal altercation with his peer (Mal Decker) after his peer came into his room accusing him of snitching on him about giving suboxone to another patient. Staff intervened successfully. Pertinent Past History: Alcohol dependence Cocaine dependence Asthma Cannabis dependence HIV Cardiac stent Sedative dependence - Physical Exam Results Vital Signs: Vital Signs Temperature 97.9 F 02/07/18 09:26 Pulse Rate 112 H 02/07/18 09:26 Respiratory Rate 18 02/07/18 09:26 Blood Pressure 112/76 02/07/18 09:26 O2 Sat by Pulse Oximetry (%) Pertinent Admission Physical Exam Findings: Withdrawal symptoms Laboratory Tests 02/04/18 02/04/18 02/04/18 08:00 08:00 08:00 WBC 2.6 L RBC 4.44 Hgb 11.6 L Hct 35.9 MCV 80.9 MCH 26.1 MCHC 32.2 RDW 15.7 Plt Count 178 MPV 10.4 Absolute Neuts (auto) Neutrophils % Neutrophils % (Manual) Band Neutrophils % Lymphocytes % Lymphocytes % (Manual) Monocytes % Monocytes % (Manual) Eosinophils % Eosinophils % (Manual) Basophils % Basophils % (Manual) Myelocytes % (Man) Promyelocytes % (Man) Blast Cells % (Manual) Nucleated RBC % Metamyelocytes Hypochromia Toxic Granulation Dohle Bodies Platelet Estimate Polychromasia Poikilocytosis Basophilic Stippling Anisocytosis Microcytosis Macrocytosis Spherocytes Sickle Cells Target Cells Tear Drop Cells Ovalocytes Stomatocytes Helmet Cells Yun-[place] Bodies [place] Rings [place] Cells Acanthocytes (Spur) Rouleaux Fragmented RBCs Schistocytes Sodium 140 Potassium 4.1 Chloride 104 Carbon Dioxide 26 Anion Gap 11 BUN 22 H Creatinine 1.4 H Creat Clearance w eGFR 53.43 Random Glucose 91 Calcium 8.5 Total Bilirubin 0.4 AST 27 ALT 30 Alkaline Phosphatase 79 Total Protein 7.1 Albumin 3.6 Urine Color Urine Appearance Urine pH Ur Specific [place] Urine Protein Urine Glucose (UA) Urine Ketones Urine Blood Urine Nitrite Urine Bilirubin Urine Urobilinogen Ur Leukocyte Esterase RPR Titer Nonreactive 02/05/18 02/05/18 07:44 08:40 WBC 3.2 L RBC 4.50 Hgb 12.0 Hct 36.3 MCV 80.9 MCH 26.6 MCHC 32.9 RDW 15.5 Plt Count 172 MPV 10.0 Absolute Neuts (auto) 1.4 L Neutrophils % 44.8 D Neutrophils % (Manual) 40.0 L Band Neutrophils % 3.1 Lymphocytes % 28.0 Lymphocytes % (Manual) 25.3 Monocytes % 19.6 H D Monocytes % (Manual) 20 H Eosinophils % 6.6 H Eosinophils % (Manual) 7.4 H Basophils % 1.0 D Basophils % (Manual) 2.1 H Myelocytes % (Man) 0 Promyelocytes % (Man) 0 Blast Cells % (Manual) 0 Nucleated RBC % 0 Metamyelocytes 0 Hypochromia 0 Toxic Granulation 0 Dohle Bodies 0 Platelet Estimate Normal Polychromasia 0 Poikilocytosis 0 Basophilic Stippling 0 Anisocytosis 0 Microcytosis 0 Macrocytosis 0 Spherocytes 0 Sickle Cells 0 Target Cells 0 Tear Drop Cells 0 Ovalocytes 0 Stomatocytes 0 Helmet Cells 0 Yun-[place] Bodies 0 [place] Rings 0 Gerardo Cells 0 Acanthocytes (Spur) 0 Rouleaux 0 Fragmented RBCs 0 Schistocytes 0 Sodium Potassium Chloride Carbon Dioxide Anion Gap BUN Creatinine Creat Clearance w eGFR Random Glucose Calcium Total Bilirubin AST ALT Alkaline Phosphatase Total Protein Albumin Urine Color Yellow Urine Appearance Turbid Urine pH 5.0 Ur Specific [place] 1.027 Urine Protein Negative Urine Glucose (UA) Negative Urine Ketones Negative Urine Blood Negative Urine Nitrite Negative Urine Bilirubin Negative Urine Urobilinogen Negative Ur Leukocyte Esterase Negative RPR Titer Labs reviewed - Treatment Hospital Course: Detox Protocol Followed, Detoxed Safely, Responded well, Discharged Condition Good, Rehab Referral Accepted - Medication Discharge Medications: Ambulatory Orders Albuterol Sulfate Inhaler - [Ventolin HFA Inhaler -] 2 inh PO Q4H PRN #1 inhaler 05/29/17 Dapsone - 100 mg PO DAILY #30 tablet 07/11/17 Darunavir/Cobicistat [Prezcobix 800 mg-150 mg Tablet] 1 each PO DAILY #30 tablet 07/11/17 Emtricitabine/Tenofov Alafenam [Descovy 200-25 mg Tablet (Nf)] 1 each PO DAILY # 30 tablet 07/11/17 - Diagnosis (1) Prerenal azotemia Status: Acute (2) Alcohol dependence with uncomplicated withdrawal Status: Acute (3) Cannabis dependence, uncomplicated Status: Chronic (4) Cocaine dependence Status: Chronic Qualifiers: Substance use status: uncomplicated Qualified Code(s): F14.20 - Cocaine dependence, uncomplicated (5) Sedative, hypnotic or anxiolytic abuse, uncomplicated Status: Acute (6) Asthma Status: Chronic Qualifiers: Asthma severity: mild Asthma persistence: intermittent Asthma complication type: uncomplicated Qualified Code(s): J45.20 - Mild intermittent asthma, uncomplicated (7) HIV disease Status: Chronic (8) S/P angioplasty with stent Status: Chronic - AMA Did Patient Leave Against Medical Advice: No (Patient accepted to [facility] rehab)
== END 2018-02-07 10:26 | disposition home or self-care (01) | DRG 897 ==
LOC: YASAS 20:09 → Y3N 23:46
PROC: HZ2ZZZZ Detoxification Services for Substance Abuse Treatment (ICD-10-PCS; principal; 2018-02-03)
DX: F10.230 Alcohol dependence with withdrawal, uncomplicated (principal); F14.20 Cocaine dependence, uncomplicated; B20 Human immunodeficiency virus [HIV] disease; F13.230 Sedative, hypnotic or anxiolytic dependence with withdrawal, uncomplicated; F12.20 Cannabis dependence, uncomplicated; F19.24 Other psychoactive substance dependence with psychoactive substance-induced mood disorder; I25.10 Atherosclerotic heart disease of native coronary artery without angina pectoris; Z95.5 Presence of coronary angioplasty implant and graft; I25.2 Old myocardial infarction; J45.20 Mild intermittent asthma, uncomplicated; G47.00 Insomnia, unspecified; D64.9 Anemia, unspecified; R01.1 Cardiac murmur, unspecified; L30.9 Dermatitis, unspecified; L85.3 Xerosis cutis; R79.89 Other specified abnormal findings of blood chemistry; R63.4 Abnormal weight loss; Z68.22 Body mass index [BMI] 22.0-22.9, adult; Z96.651 Presence of right artificial knee joint; Z91.5 Personal history of self-harm; Z88.2 Allergy status to sulfonamides; Z91.013 Allergy to seafood; Z91.19 Patient's noncompliance with other medical treatment and regimen
CPT/HCPCS: 36415; 80053; 81003; 85025; 85027; 86593; 93005; 93010

== ENCOUNTER 2018-03-15 08:06 | Inpatient (IN) | payer OTHER ==
[2018-03-15 08:55] VITALS: BMI 24.3
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
[2018-03-15] MEDS ORDERED: ACETAMINOPHEN 325 MG TABLET (FP) PO PRN (09:12)
[2018-03-15] MEDS ORDERED: LOPERAMIDE HCL 2 MG CAPSULE PO PRN (09:12)
[2018-03-15] MEDS ORDERED: IBUPROFEN 400 MG TABLET (FP) PO PRN (09:12)
[2018-03-15] MEDS ORDERED: hydrOXYzine PAMOATE 25 MG CAPSULE (FP) PO PRN (09:12)
[2018-03-15] MEDS ORDERED: P-EPHED 60MG/TRIPROLIDI 2.5MG TABLET PO PRN (09:12)
[2018-03-15] MEDS ORDERED: MAGNESIUM HYDROX 2400MG/30ML ORAL SUSPENSION 30 ML CUP PO PRN (09:12)
[2018-03-15] MEDS ORDERED: MAGNESIUM CITRATE 300 ML BOTTLE PO PRN (09:12)
[2018-03-15] MEDS ORDERED: chlordiazePOXIDE HCL 25 MG CAPSULE PO PRN (09:12)
[2018-03-15] MEDS ORDERED: MAG HYDROX/AL HYDROX/SIMETH 30 ML UNIT-DOSE CUP PO PRN (09:12)
[2018-03-15] MEDS ORDERED: ALBUTEROL SO4 8 GM HFA INHALER IH PRN (09:14)
[2018-03-15] MEDS: ASPIRIN 81 MG CHEWABLE TABLETS PO SCH (11:22)
[2018-03-15] MEDS: chlordiazePOXIDE HCL 25 MG CAPSULE PO SCH ×3 (11:22→23:07)
[2018-03-15] MEDS: PRENATAL VITAMINS W/ FOLIC ACID TABLET (FP) PO SCH (11:22)
[2018-03-15] MEDS: TRIAMCINOLONE ACET 0.1% OINT 15 GM TUBE TP SCH ×2 (11:25→23:07)
[2018-03-15] MEDS ORDERED: MELATONIN 5 MG TABLETS PO PRN (22:00)
[2018-03-15] MEDS: THIAMINE HCL 100 MG TABLET (FP) PO SCH (23:07)
[2018-03-16] MEDS: chlordiazePOXIDE HCL 25 MG CAPSULE PO SCH ×4 (06:16→23:29)
[2018-03-16] MEDS: guaiFENesin/D-METHORPHAN HB 10 ML UNIT-DOSE CUPS PO PRN ×2 (06:17→17:53)
[2018-03-16] MEDS: MENTHOL/PHENOL 1 EACH UD MM PRN ×2 (06:17→17:54)
[2018-03-16 10:32] LABS: HEMATOCRIT 39.8 % (35.4-49); MCHC 30.1 g/dl (32.0-35.9); MEAN CELL VOLUME 82.9 fl (80-96); PLATELET COUNT 186 K/MM3 (134-434); RDW 15.6 % (11.9-15.9); WHITE BLOOD COUNT 2.5 K/mm3 (4.0-10.0)
[2018-03-16] MEDS: ASPIRIN 81 MG CHEWABLE TABLETS PO SCH (10:45)
[2018-03-16] MEDS: TRIAMCINOLONE ACET 0.1% OINT 15 GM TUBE TP SCH ×2 (10:47→23:13)
[2018-03-16] MEDS: PRENATAL VITAMINS W/ FOLIC ACID TABLET (FP) PO SCH (10:48)
[2018-03-16 11:58] LABS: ALBUMIN 3.8 g/dl (3.4-5.0); ALK PHOS 85 U/L (45-117); ANION GAP 9 MMOL/L (8-16); BILIRUBIN,TOTAL 0.3 mg/dL (0.2-1); BLOOD UREA NITROGEN 15 mg/dL (7-18); CHLORIDE 108 mmol/L (98-107); CO2 25 mmol/L (21-32); CREATININE 1.4 mg/dL (0.55-1.3); GLUCOSE,RANDOM 139 mg/dL (74-106); POTASSIUM 4.4 mmol/L (3.5-5.1); SGOT/AST 22 U/L (15-37); SGPT/ALT 26 U/L (13-61); SODIUM 142 mmol/L (136-145); TOT PROT 8.1 g/dl (6.4-8.2)
--- NOTE | 2018-03-16 13:22 | PN ---
S CIWA - CIWA Score Nausea/Vomitin-Mild Nausea/No Vomiting Muscle Tremors: 4-Moderate,w/Arms Extend Anxiety: 3 Agitation: 4-Moderately Restless Paroxysmal Sweats: 3 Orientation: 0-Oriented Tacttile Disturbances: 0-None Auditory Disturbances: 0-None Visual Disturbances: 0-None Headache: 0-None Present CIWA-Ar Total Score: 15 BHS Progress Note (SOAP) Subjective: sweats shakes nausea interrupted sleep body aches i need my sneakers for comfort and to protect my feet from germs Objective: 03/16/18 13:21 Vital Signs Temperature 98.2 F 03/16/18 09:15 Pulse Rate 95 H 03/16/18 09:15 Respiratory Rate 18 03/16/18 09:15 Blood Pressure 123/78 03/16/18 09:15 O2 Sat by Pulse Oximetry (%) Laboratory Tests 03/16/18 03/16/18 03/16/18 06:00 06:00 06:00 WBC 2.5 L RBC 4.80 Hgb 12.0 Hct 39.8 MCV 82.9 MCH 25.0 L MCHC 30.1 L RDW 15.6 Plt Count 186 MPV 11.0 Sodium 142 Potassium 4.4 Chloride 108 H Carbon Dioxide 25 Anion Gap 9 BUN 15 Creatinine 1.4 H Creat Clearance w eGFR 53.43 Random Glucose 139 H Calcium 9.0 Total Bilirubin 0.3 AST 22 ALT 26 Alkaline Phosphatase 85 Total Protein 8.1 Albumin 3.8 RPR Titer Nonreactive aaox3 ambulating no acute distress Assessment: 03/16/18 13:21 withdrawal sx Plan: continue detox increase fluids pt may use his sneaker
[2018-03-16] MEDS: THIAMINE HCL 100 MG TABLET (FP) PO SCH (23:14)
[2018-03-17] MEDS: chlordiazePOXIDE HCL 25 MG CAPSULE PO SCH (05:43)
[2018-03-17] MEDS: PRENATAL VITAMINS W/ FOLIC ACID TABLET (FP) PO SCH (10:33)
[2018-03-17] MEDS: ASPIRIN 81 MG CHEWABLE TABLETS PO SCH (10:33)
[2018-03-17] MEDS: TRIAMCINOLONE ACET 0.1% OINT 15 GM TUBE TP SCH ×2 (10:33→22:50)
[2018-03-17] MEDS: chlordiazePOXIDE 5 MG CAPSULE PO SCH ×3 (10:35→22:51)
--- NOTE | 2018-03-17 12:32 | PN ---
[facility] CIWA - CIWA Score Nausea/Vomitin Muscle Tremors: 2 Anxiety: 2 Agitation: 2 Paroxysmal Sweats: 3 Orientation: 0-Oriented Tacttile Disturbances: 0-None Auditory Disturbances: 0-None Visual Disturbances: 0-None Headache: 0-None Present CIWA-Ar Total Score: 12 BHS Progress Note (SOAP) Subjective: interrupted sleep, sweats,shakes, nausea Objective: 03/17/18 12:34 Vital Signs Temperature 98.6 F 03/17/18 10:03 Pulse Rate 93 H 03/17/18 10:03 Respiratory Rate 20 03/17/18 10:03 Blood Pressure 110/57 L 03/17/18 10:03 O2 Sat by Pulse Oximetry (%) Laboratory Last Values WBC 2.5 K/mm3 (4.0-10.0) L 03/16/18 06:00 RBC 4.80 M/mm3 (4.00-5.60) 03/16/18 06:00 Hgb 12.0 GM/dL (11.7-16.9) 03/16/18 06:00 Hct 39.8 % (35.4-49) 03/16/18 06:00 MCV 82.9 fl (80-96) 03/16/18 06:00 MCH 25.0 pg (25.7-33.7) L 03/16/18 06:00 MCHC 30.1 g/dl (32.0-35.9) L 03/16/18 06:00 RDW 15.6 % (11.9-15.9) 03/16/18 06:00 Plt Count 186 K/MM3 (134-434) 03/16/18 06:00 MPV 11.0 fl (7.5-11.1) 03/16/18 06:00 Sodium 142 mmol/L (136-145) 03/16/18 06:00 Potassium 4.4 mmol/L (3.5-5.1) 03/16/18 06:00 Chloride 108 mmol/L (98-107) H 03/16/18 06:00 Carbon Dioxide 25 mmol/L (21-32) 03/16/18 06:00 Anion Gap 9 MMOL/L (8-16) 03/16/18 06:00 BUN 15 mg/dL (7-18) 03/16/18 06:00 Creatinine 1.4 mg/dL (0.55-1.3) H 03/16/18 06:00 Creat Clearance w eGFR 53.43 (>60) 03/16/18 06:00 Random Glucose 139 mg/dL (74-106) H 03/16/18 06:00 Calcium 9.0 mg/dL (8.5-10.1) 03/16/18 06:00 Total Bilirubin 0.3 mg/dL (0.2-1) 03/16/18 06:00 AST 22 U/L (15-37) 03/16/18 06:00 ALT 26 U/L (13-61) 03/16/18 06:00 Alkaline Phosphatase 85 U/L (45-117) 03/16/18 06:00 Total Protein 8.1 g/dl (6.4-8.2) 03/16/18 06:00 Albumin 3.8 g/dl (3.4-5.0) 03/16/18 06:00 RPR Titer Nonreactive (NONREACTIVE) 03/16/18 06:00 pt aox3 in nad ambulating Assessment: 03/17/18 12:35 withdrawal sx's Plan: cont. detox increase fluids.
[2018-03-17] MEDS: THIAMINE HCL 100 MG TABLET (FP) PO SCH (22:51)
[2018-03-18] MEDS: chlordiazePOXIDE 5 MG CAPSULE PO SCH (06:01)
[2018-03-18] MEDS: MENTHOL/PHENOL 1 EACH UD MM PRN ×3 (06:02→17:53)
[2018-03-18] MEDS: guaiFENesin/D-METHORPHAN HB 10 ML UNIT-DOSE CUPS PO PRN ×2 (06:02→12:29)
[2018-03-18] MEDS: PRENATAL VITAMINS W/ FOLIC ACID TABLET (FP) PO SCH (10:16)
[2018-03-18] MEDS: ASPIRIN 81 MG CHEWABLE TABLETS PO SCH (10:16)
[2018-03-18] MEDS: chlordiazePOXIDE HCL 10 MG CAPSULE PO SCH ×3 (10:16→23:12)
[2018-03-18] MEDS: TRIAMCINOLONE ACET 0.1% OINT 15 GM TUBE TP SCH ×2 (10:17→23:12)
--- NOTE | 2018-03-18 15:15 | PN ---
BHS Progress Note (SOAP) Objective: 03/18/18 15:12 pt states he feels like he is in withdrawal-, today is day #4 of protocol PE Vital Signs - 24 hr 03/17/18 03/17/18 03/18/18 18:43 22:21 00:30 Temperature 99.2 F 97.3 F L Pulse Rate 86 79 Respiratory 18 18 18 Rate Blood Pressure 122/72 104/59 L 03/18/18 03/18/18 03/18/18 03:30 07:01 09:51 Temperature 97.7 F Pulse Rate 83 93 H Respiratory 18 18 18 Rate Blood Pressure 118/77 135/86 03/18/18 14:25 Temperature 97.9 F Pulse Rate 88 Respiratory 18 Rate Blood Pressure 130/76 Laboratory Tests 03/16/18 03/16/18 03/16/18 06:00 06:00 06:00 WBC 2.5 L RBC 4.80 Hgb 12.0 Hct 39.8 MCV 82.9 MCH 25.0 L MCHC 30.1 L RDW 15.6 Plt Count 186 MPV 11.0 Sodium 142 Potassium 4.4 Chloride 108 H Carbon Dioxide 25 Anion Gap 9 BUN 15 Creatinine 1.4 H Creat Clearance w eGFR 53.43 Random Glucose 139 H Calcium 9.0 Total Bilirubin 0.3 AST 22 ALT 26 Alkaline Phosphatase 85 Total Protein 8.1 Albumin 3.8 RPR Titer Nonreactive a/p: AUD: will continue detox protocol, add clonidine and vistaril for sx treatment 03/18/18 15:17
[2018-03-18] MEDS ORDERED: hydrOXYzine PAMOATE 25 MG CAPSULE (FP) PO PRN (15:17)
[2018-03-18] MEDS ORDERED: cloNIDine HCL 0.1 MG TABLET PO PRN (15:17)
[2018-03-18] MEDS: THIAMINE HCL 100 MG TABLET (FP) PO SCH (23:12)
[2018-03-19] MEDS: chlordiazePOXIDE HCL 10 MG CAPSULE PO SCH (05:53)
[2018-03-19] MEDS: guaiFENesin/D-METHORPHAN HB 10 ML UNIT-DOSE CUPS PO PRN (05:53)
[2018-03-19] MEDS: MENTHOL/PHENOL 1 EACH UD MM PRN (05:55)
[2018-03-19 07:40] VITALS: BP 127/94; PULSE 94; TEMP 98.1
--- NOTE | 2018-03-19 08:37 | DS ---
[facility] Detox Discharge Summary Admission Date: 03/15/18 Discharge Date: 03/19/18 - History Present History: Alcohol Dependence Additional Comments: 52 years old male admitted on 03/15/18 for alcohol withdrawal stabilization completed alcohol detox regimen tolerated well alert no acute distress aftercare positive choice Pertinent Past History: patient agrees to consider infectious disease specialist for medical mental and addiction issues patient understands the consequences of ART adherence - Physical Exam Results Vital Signs: Vital Signs Temperature 98.1 F 03/19/18 04:00 Pulse Rate 94 H 03/19/18 04:00 Respiratory Rate 18 03/19/18 04:00 Blood Pressure 127/94 03/19/18 04:00 O2 Sat by Pulse Oximetry (%) Pertinent Admission Physical Exam Findings: alcohol withdrawal sx Laboratory Last Values WBC 2.5 K/mm3 (4.0-10.0) L 03/16/18 06:00 RBC 4.80 M/mm3 (4.00-5.60) 03/16/18 06:00 Hgb 12.0 GM/dL (11.7-16.9) 03/16/18 06:00 Hct 39.8 % (35.4-49) 03/16/18 06:00 MCV 82.9 fl (80-96) 03/16/18 06:00 MCH 25.0 pg (25.7-33.7) L 03/16/18 06:00 MCHC 30.1 g/dl (32.0-35.9) L 03/16/18 06:00 RDW 15.6 % (11.9-15.9) 03/16/18 06:00 Plt Count 186 K/MM3 (134-434) 03/16/18 06:00 MPV 11.0 fl (7.5-11.1) 03/16/18 06:00 Sodium 142 mmol/L (136-145) 03/16/18 06:00 Potassium 4.4 mmol/L (3.5-5.1) 03/16/18 06:00 Chloride 108 mmol/L (98-107) H 03/16/18 06:00 Carbon Dioxide 25 mmol/L (21-32) 03/16/18 06:00 Anion Gap 9 MMOL/L (8-16) 03/16/18 06:00 BUN 15 mg/dL (7-18) 03/16/18 06:00 Creatinine 1.4 mg/dL (0.55-1.3) H 03/16/18 06:00 Creat Clearance w eGFR 53.43 (>60) 03/16/18 06:00 Random Glucose 139 mg/dL (74-106) H 03/16/18 06:00 Calcium 9.0 mg/dL (8.5-10.1) 03/16/18 06:00 Total Bilirubin 0.3 mg/dL (0.2-1) 03/16/18 06:00 AST 22 U/L (15-37) 03/16/18 06:00 ALT 26 U/L (13-61) 03/16/18 06:00 Alkaline Phosphatase 85 U/L (45-117) 03/16/18 06:00 Total Protein 8.1 g/dl (6.4-8.2) 03/16/18 06:00 Albumin 3.8 g/dl (3.4-5.0) 03/16/18 06:00 RPR Titer Nonreactive (NONREACTIVE) 03/16/18 06:00 lab noted patient agrees to return to infectious disease specialist for HIV status and follow up with low wbc - Treatment Hospital Course: Detox Protocol Followed, Detoxed Safely, Responded well, Discharged Condition Good, Rehab Referral Accepted Patient has Accepted a Rehab Referral to: positive choice - Medication Discharge Medications: Ambulatory Orders Dapsone - 100 mg PO DAILY #30 tablet 07/11/17 Darunavir/Cobicistat [Prezcobix 800 mg-150 mg Tablet] 1 each PO DAILY #30 tablet 07/11/17 Emtricitabine/Tenofov Alafenam [Descovy 200-25 mg Tablet (Nf)] 1 each PO DAILY # 30 tablet 07/11/17 Albuterol Sulfate Inhaler - [Ventolin HFA Inhaler -] 2 inh PO Q4H PRN #1 inhaler 03/19/18 - Diagnosis (1) HIV (human immunodeficiency virus infection) Status: Chronic (2) Alcohol dependence with uncomplicated withdrawal Status: Acute (3) Asthma Status: Chronic Qualifiers: Asthma severity: mild Asthma persistence: intermittent Asthma complication type: with status asthmaticus Qualified Code(s): J45.22 - Mild intermittent asthma with status asthmaticus (4) Weight loss Status: Acute - AMA Did Patient Leave Against Medical Advice: No
== END 2018-03-19 09:21 | disposition home or self-care (01) | DRG 897 ==
LOC: YASAS 08:06 → Y6N 10:11
PROC: HZ2ZZZZ Detoxification Services for Substance Abuse Treatment (ICD-10-PCS; principal; 2018-03-15)
DX: F10.230 Alcohol dependence with withdrawal, uncomplicated (principal); F14.20 Cocaine dependence, uncomplicated; J45.22 Mild intermittent asthma with status asthmaticus; B20 Human immunodeficiency virus [HIV] disease; F12.20 Cannabis dependence, uncomplicated; F41.9 Anxiety disorder, unspecified; F32.9 Major depressive disorder, single episode, unspecified; R79.89 Other specified abnormal findings of blood chemistry; I25.2 Old myocardial infarction; Z87.438 Personal history of other diseases of male genital organs; Z88.2 Allergy status to sulfonamides; Z91.013 Allergy to seafood; Z95.5 Presence of coronary angioplasty implant and graft; Z96.652 Presence of left artificial knee joint; Z91.5 Personal history of self-harm
CPT/HCPCS: 36415; 80053; 85027; 86593

== ENCOUNTER 2018-05-11 11:20 | Inpatient (IN) | payer OTHER ==
[2018-05-11 11:49] VITALS: BMI 23.6
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
[2018-05-11] MEDS ORDERED: MAGNESIUM HYDROX 2400MG/30ML ORAL SUSPENSION 30 ML CUP PO PRN (13:57)
[2018-05-11] MEDS ORDERED: MAGNESIUM CITRATE 300 ML BOTTLE PO PRN (13:57)
[2018-05-11] MEDS ORDERED: chlordiazePOXIDE HCL 25 MG CAPSULE PO PRN (13:57)
[2018-05-11] MEDS ORDERED: MAG HYDROX/AL HYDROX/SIMETH 30 ML UNIT-DOSE CUP PO PRN (13:57)
[2018-05-11] MEDS ORDERED: P-EPHED 60MG/TRIPROLIDI 2.5MG TABLET PO PRN (13:57)
[2018-05-11] MEDS ORDERED: ACETAMINOPHEN 325 MG TABLET (FP) PO PRN (13:57)
[2018-05-11] MEDS ORDERED: ALBUTEROL SO4 8 GM HFA INHALER IH PRN (13:58)
[2018-05-11] MEDS: chlordiazePOXIDE HCL 25 MG CAPSULE PO SCH ×2 (17:53→22:21)
[2018-05-11] MEDS ORDERED: MELATONIN 5 MG TABLETS PO PRN (22:00)
[2018-05-11] MEDS: TRIAMCINOLONE ACET 0.025% OINTMENT 15 GM TUBE TP SCH (22:22)
[2018-05-11] MEDS: THIAMINE HCL 100 MG TABLET (FP) PO SCH (22:22)
[2018-05-12] MEDS: guaiFENesin/D-METHORPHAN HB 10 ML UNIT-DOSE CUPS PO PRN (05:33)
[2018-05-12] MEDS: chlordiazePOXIDE HCL 25 MG CAPSULE PO SCH ×4 (05:33→22:38)
[2018-05-12] MEDS: MENTHOL/PHENOL 1 EACH UD MM PRN ×2 (05:33→11:03)
[2018-05-12] MEDS: PRENATAL VITAMINS W/ FOLIC ACID TABLET (FP) PO SCH (10:09)
[2018-05-12] MEDS: ASPIRIN COATED 81 MG TABLET.EC PO SCH (10:09)
[2018-05-12] MEDS: TRIAMCINOLONE ACET 0.025% OINTMENT 15 GM TUBE TP SCH ×2 (10:09→22:38)
[2018-05-12 10:11] LABS: HEMATOCRIT 36.7 % (35.4-49); HEMOGLOBIN 11.8 GM/dL (11.7-16.9); MCH 25.7 pg (25.7-33.7); MCHC 32.1 g/dl (32.0-35.9); MEAN CELL VOLUME 80.1 fl (80-96); MEAN PLT VOLUME 10.1 fl (7.5-11.1); PLATELET COUNT 176 K/MM3 (134-434); RBC 4.59 M/mm3 (4.00-5.60); RDW 14.1 % (11.9-15.9); WHITE BLOOD COUNT 2.3 K/mm3 (4.0-10.0)
[2018-05-12 10:53] LABS: ALBUMIN 3.9 g/dl (3.4-5.0); ALK PHOS 79 U/L (45-117); ANION GAP 4 MMOL/L (8-16); BILIRUBIN,TOTAL 0.6 mg/dL (0.2-1); BLOOD UREA NITROGEN 8 mg/dL (7-18); CALCIUM 9.1 mg/dL (8.5-10.1); CHLORIDE 106 mmol/L (98-107); CO2 31 mmol/L (21-32); CREATININE 1.2 mg/dL (0.55-1.3); GLUCOSE,RANDOM 71 mg/dL (74-106); POTASSIUM 4.4 mmol/L (3.5-5.1); SGOT/AST 23 U/L (15-37); SGPT/ALT 20 U/L (13-61); SODIUM 141 mmol/L (136-145); TOT PROT 7.8 g/dl (6.4-8.2)
[2018-05-12] MEDS: DAPSONE 100 MG TABLET PO SCH (11:02)
--- NOTE | 2018-05-12 16:27 | PN ---
S CIWA - CIWA Score Nausea/Vomitin-No Nausea/No Vomiting Muscle Tremors: 3 Anxiety: 0-No Anxiety, at Ease Agitation: 0-Normal Activity Paroxysmal Sweats: 3 Orientation: 0-Oriented Tacttile Disturbances: 2-Mild Itch/Numbness/Burn Auditory Disturbances: 0-None Visual Disturbances: 2-Mild Sensitivity Headache: 3-Moderate CIWA-Ar Total Score: 13 BHS Progress Note (SOAP) Subjective: Sweating, H/A, Body Aches, Tremors. Objective: PATIENT A & O X 3, OBSERVED AMBULATING ON UNIT. IN NO ACUTE DISTRESS. 05/12/18 16:26 Vital Signs Temperature 97.1 F L 05/12/18 13:04 Pulse Rate 91 H 05/12/18 13:04 Respiratory Rate 18 05/12/18 13:04 Blood Pressure 129/85 05/12/18 13:04 O2 Sat by Pulse Oximetry (%) Laboratory Tests 05/12/18 05/12/18 05/12/18 07:00 07:00 07:00 WBC 2.3 L RBC 4.59 Hgb 11.8 Hct 36.7 MCV 80.1 MCH 25.7 MCHC 32.1 RDW 14.1 Plt Count 176 MPV 10.1 Sodium 141 Potassium 4.4 Chloride 106 Carbon Dioxide 31 Anion Gap 4 L BUN 8 Creatinine 1.2 Creat Clearance w eGFR > 60 Random Glucose 71 L Calcium 9.1 Total Bilirubin 0.6 AST 23 ALT 20 Alkaline Phosphatase 79 Total Protein 7.8 Albumin 3.9 RPR Titer Nonreactive LABS NOTED. PATIENT HAS HAD LOW WBC LEVELS ON PREVIOUS ADMISSIONS. Assessment: 05/12/18 16:26 WITHDRAWAL SYMPTOMS. LEUKOPENIA. Plan: CONTINUE DETOX. INCREASE DAILY PO FLUID INTAKE.
[2018-05-12] MEDS: THIAMINE HCL 100 MG TABLET (FP) PO SCH (22:38)
[2018-05-13] MEDS: MENTHOL/PHENOL 1 EACH UD MM PRN (05:29)
[2018-05-13] MEDS: chlordiazePOXIDE HCL 25 MG CAPSULE PO SCH ×2 (05:29→10:42)
[2018-05-13] MEDS: guaiFENesin/D-METHORPHAN HB 10 ML UNIT-DOSE CUPS PO PRN (05:29)
--- NOTE | 2018-05-13 10:24 | PN ---
S CIWA - CIWA Score Nausea/Vomitin-Mild Nausea/No Vomiting Muscle Tremors: 1-None Visible, but [place] Anxiety: 0-No Anxiety, at Ease Agitation: 0-Normal Activity Paroxysmal Sweats: No Perspiration Orientation: 0-Oriented Tacttile Disturbances: 0-None Auditory Disturbances: 0-None Visual Disturbances: 0-None Headache: 0-None Present CIWA-Ar Total Score: 2 BHS Progress Note (SOAP) Subjective: pt states doing well with alcohol detox protocol, no complaints, would like to go to rehab after detox O: Vital Signs - 24 hr 05/12/18 05/12/18 05/12/18 13:04 17:46 21:56 Temperature 97.1 F L 98.1 F 97.1 F L Pulse Rate 91 H 90 75 Respiratory 18 18 18 Rate Blood Pressure 129/85 126/79 102/66 05/13/18 05/13/18 05/13/18 00:30 06:15 09:13 Temperature 97.1 F L 96.7 F L Pulse Rate 84 89 Respiratory 18 18 18 Rate Blood Pressure 110/62 129/76 Laboratory Tests 05/12/18 05/12/18 05/12/18 07:00 07:00 07:00 WBC 2.3 L RBC 4.59 Hgb 11.8 Hct 36.7 MCV 80.1 MCH 25.7 MCHC 32.1 RDW 14.1 Plt Count 176 MPV 10.1 Sodium 141 Potassium 4.4 Chloride 106 Carbon Dioxide 31 Anion Gap 4 L BUN 8 Creatinine 1.2 Creat Clearance w eGFR > 60 Random Glucose 71 L Calcium 9.1 Total Bilirubin 0.6 AST 23 ALT 20 Alkaline Phosphatase 79 Total Protein 7.8 Albumin 3.9 RPR Titer Nonreactive a/p: continue alcohol detox protocol- pt doing well, has prn meds for Sx
[2018-05-13] MEDS: TRIAMCINOLONE ACET 0.025% OINTMENT 15 GM TUBE TP SCH ×2 (10:41→22:58)
[2018-05-13] MEDS: DAPSONE 100 MG TABLET PO SCH (10:42)
[2018-05-13] MEDS: PRENATAL VITAMINS W/ FOLIC ACID TABLET (FP) PO SCH (10:42)
[2018-05-13] MEDS: ASPIRIN COATED 81 MG TABLET.EC PO SCH (10:42)
[2018-05-13] MEDS: chlordiazePOXIDE 5 MG CAPSULE PO SCH ×2 (17:04→22:58)
[2018-05-13] MEDS: IBUPROFEN 400 MG TABLET (FP) PO PRN (17:06)
[2018-05-13] MEDS: THIAMINE HCL 100 MG TABLET (FP) PO SCH (22:58)
[2018-05-14] MEDS: chlordiazePOXIDE 5 MG CAPSULE PO SCH ×2 (05:30→10:20)
[2018-05-14] MEDS: MENTHOL/PHENOL 1 EACH UD MM PRN (05:32)
[2018-05-14] MEDS: guaiFENesin/D-METHORPHAN HB 10 ML UNIT-DOSE CUPS PO PRN (05:32)
[2018-05-14] MEDS: TRIAMCINOLONE ACET 0.025% OINTMENT 15 GM TUBE TP SCH ×2 (10:18→21:56)
[2018-05-14] MEDS: ASPIRIN COATED 81 MG TABLET.EC PO SCH (10:19)
[2018-05-14] MEDS: PRENATAL VITAMINS W/ FOLIC ACID TABLET (FP) PO SCH (10:20)
[2018-05-14] MEDS: DAPSONE 100 MG TABLET PO SCH (10:50)
--- NOTE | 2018-05-14 13:14 | PN ---
[facility] CIWA - CIWA Score Nausea/Vomitin-No Nausea/No Vomiting Muscle Tremors: 1-None Visible, but [place] Anxiety: 0-No Anxiety, at Ease Agitation: 1-Slight > Activity Paroxysmal Sweats: No Perspiration Orientation: 0-Oriented Tacttile Disturbances: 0-None Auditory Disturbances: 0-None Visual Disturbances: 0-None Headache: 0-None Present CIWA-Ar Total Score: 2 BHS Progress Note (SOAP) Subjective: feeling better transferred to rehab today for continuity of care Objective: 05/14/18 13:18 Vital Signs Temperature 98.2 F 05/14/18 09:19 Pulse Rate 107 H 05/14/18 09:19 Respiratory Rate 20 05/14/18 09:19 Blood Pressure 127/78 05/14/18 09:19 O2 Sat by Pulse Oximetry (%) Laboratory Last Values WBC 2.3 K/mm3 (4.0-10.0) L 05/12/18 07:00 RBC 4.59 M/mm3 (4.00-5.60) 05/12/18 07:00 Hgb 11.8 GM/dL (11.7-16.9) 05/12/18 07:00 Hct 36.7 % (35.4-49) 05/12/18 07:00 MCV 80.1 fl (80-96) 05/12/18 07:00 MCH 25.7 pg (25.7-33.7) 05/12/18 07:00 MCHC 32.1 g/dl (32.0-35.9) 05/12/18 07:00 RDW 14.1 % (11.9-15.9) 05/12/18 07:00 Plt Count 176 K/MM3 (134-434) 05/12/18 07:00 MPV 10.1 fl (7.5-11.1) 05/12/18 07:00 Sodium 141 mmol/L (136-145) 05/12/18 07:00 Potassium 4.4 mmol/L (3.5-5.1) 05/12/18 07:00 Chloride 106 mmol/L (98-107) 05/12/18 07:00 Carbon Dioxide 31 mmol/L (21-32) 05/12/18 07:00 Anion Gap 4 MMOL/L (8-16) L 05/12/18 07:00 BUN 8 mg/dL (7-18) 05/12/18 07:00 Creatinine 1.2 mg/dL (0.55-1.3) 05/12/18 07:00 Creat Clearance w eGFR > 60 (>60) 05/12/18 07:00 Random Glucose 71 mg/dL (74-106) L 05/12/18 07:00 Calcium 9.1 mg/dL (8.5-10.1) 05/12/18 07:00 Total Bilirubin 0.6 mg/dL (0.2-1) 05/12/18 07:00 AST 23 U/L (15-37) 05/12/18 07:00 ALT 20 U/L (13-61) 05/12/18 07:00 Alkaline Phosphatase 79 U/L (45-117) 05/12/18 07:00 Total Protein 7.8 g/dl (6.4-8.2) 05/12/18 07:00 Albumin 3.9 g/dl (3.4-5.0) 05/12/18 07:00 RPR Titer Nonreactive (NONREACTIVE) 05/12/18 07:00 lab noted hiv chronic low wbc patient has been follow up with infection disease specialist 05/14/18 13:19 Assessment: 05/14/18 13:19 from detox to rehab today Plan: end of detox begin rehab
[2018-05-14] MEDS ORDERED: chlordiazePOXIDE HCL 10 MG CAPSULE PO SCH (17:00)
[2018-05-14] MEDS: THIAMINE HCL 100 MG TABLET (FP) PO SCH (21:56)
[2018-05-15] MEDS: TRIAMCINOLONE ACET 0.1% CREAM 15 GM TUBE TP SCH ×2 (12:20→22:08)
[2018-05-15] MEDS: DAPSONE 100 MG TABLET PO SCH (12:20)
[2018-05-15] MEDS: ASPIRIN COATED 81 MG TABLET.EC PO SCH (12:20)
[2018-05-15] MEDS: PRENATAL VITAMINS W/ FOLIC ACID TABLET (FP) PO SCH (12:20)
[2018-05-15] MEDS: TRIAMCINOLONE ACET 0.025% OINTMENT 15 GM TUBE TP SCH (12:20)
[2018-05-15] MEDS: THIAMINE HCL 100 MG TABLET (FP) PO SCH (22:08)
[2018-05-16] MEDS: PRENATAL VITAMINS W/ FOLIC ACID TABLET (FP) PO SCH (10:29)
[2018-05-16] MEDS: DAPSONE 100 MG TABLET PO SCH (10:30)
[2018-05-16] MEDS: TRIAMCINOLONE ACET 0.1% CREAM 15 GM TUBE TP SCH ×2 (10:30→22:29)
[2018-05-16] MEDS: ASPIRIN COATED 81 MG TABLET.EC PO SCH (10:30)
[2018-05-16] MEDS: THIAMINE HCL 100 MG TABLET (FP) PO SCH (22:29)
[2018-05-17] MEDS: PRENATAL VITAMINS W/ FOLIC ACID TABLET (FP) PO SCH (10:29)
[2018-05-17] MEDS: DAPSONE 100 MG TABLET PO SCH (10:29)
[2018-05-17] MEDS: ASPIRIN COATED 81 MG TABLET.EC PO SCH (10:29)
[2018-05-17] MEDS: TRIAMCINOLONE ACET 0.1% CREAM 15 GM TUBE TP SCH ×2 (10:30→22:00)
[2018-05-17] MEDS: THIAMINE HCL 100 MG TABLET (FP) PO SCH (22:00)
[2018-05-18] MEDS: guaiFENesin/D-METHORPHAN HB 10 ML UNIT-DOSE CUPS PO PRN (05:58)
[2018-05-18] MEDS: MENTHOL/PHENOL 1 EACH UD MM PRN (05:58)
[2018-05-18] MEDS: DAPSONE 100 MG TABLET PO SCH (10:47)
[2018-05-18] MEDS: PRENATAL VITAMINS W/ FOLIC ACID TABLET (FP) PO SCH (10:47)
[2018-05-18] MEDS: ASPIRIN COATED 81 MG TABLET.EC PO SCH (10:47)
[2018-05-18] MEDS: TRIAMCINOLONE ACET 0.1% CREAM 15 GM TUBE TP SCH ×2 (10:48→22:07)
[2018-05-18] MEDS: IBUPROFEN 400 MG TABLET (FP) PO PRN (10:49)
--- NOTE | 2018-05-18 11:50 | PN ---
S Progress Note Note: PT REPORTS HX ALLERGY SX--REDNESS,ITCHY,TEARY EYES AND USES VISINE ALLERGY AT HOME. REQUESTING TO CONTINUE WITH HIS VISINE ALLERGY EYE DROPS. Vital Signs - 24 hr 05/18/18 05/18/18 05/18/18 00:30 03:30 07:21 Temperature 98.0 F Pulse Rate 92 H Respiratory 18 18 18 Rate Blood Pressure 105/77 Laboratory Tests 05/12/18 05/12/18 05/12/18 07:00 07:00 07:00 WBC 2.3 L RBC 4.59 Hgb 11.8 Hct 36.7 MCV 80.1 MCH 25.7 MCHC 32.1 RDW 14.1 Plt Count 176 MPV 10.1 Sodium 141 Potassium 4.4 Chloride 106 Carbon Dioxide 31 Anion Gap 4 L BUN 8 Creatinine 1.2 Creat Clearance w eGFR > 60 Random Glucose 71 L Calcium 9.1 Total Bilirubin 0.6 AST 23 ALT 20 Alkaline Phosphatase 79 Total Protein 7.8 Albumin 3.9 RPR Titer Nonreactive EYES EXAM: WNL, NO REDNESS OR DISCHARGE NOTED. PLAN:RESTART VISINE ALLERGY EYE GTTS DIRECTED.
[2018-05-18] MEDS: THIAMINE HCL 100 MG TABLET (FP) PO SCH (22:07)
[2018-05-19] MEDS: MENTHOL/PHENOL 1 EACH UD MM PRN (06:08)
[2018-05-19] MEDS: ASPIRIN COATED 81 MG TABLET.EC PO SCH (10:59)
[2018-05-19] MEDS: TRIAMCINOLONE ACET 0.1% CREAM 15 GM TUBE TP SCH ×2 (10:59→22:13)
[2018-05-19] MEDS: DAPSONE 100 MG TABLET PO SCH (10:59)
[2018-05-19] MEDS: PRENATAL VITAMINS W/ FOLIC ACID TABLET (FP) PO SCH (10:59)
[2018-05-19] MEDS: IBUPROFEN 400 MG TABLET (FP) PO PRN (14:17)
[2018-05-19] MEDS: THIAMINE HCL 100 MG TABLET (FP) PO SCH (22:14)
[2018-05-20] MEDS: NAPHAZOLINE/PHENIRAMINE OPHTHALMIC 15 ML BOTTLE OU PRN (06:24)
[2018-05-20] MEDS: DAPSONE 100 MG TABLET PO SCH (10:48)
[2018-05-20] MEDS: PRENATAL VITAMINS W/ FOLIC ACID TABLET (FP) PO SCH (10:48)
[2018-05-20] MEDS: ASPIRIN COATED 81 MG TABLET.EC PO SCH (10:48)
[2018-05-20] MEDS: IBUPROFEN 400 MG TABLET (FP) PO PRN (10:49)
[2018-05-20] MEDS: TRIAMCINOLONE ACET 0.1% CREAM 15 GM TUBE TP SCH ×2 (10:51→21:53)
[2018-05-20] MEDS: THIAMINE HCL 100 MG TABLET (FP) PO SCH (21:53)
[2018-05-20] MEDS: MENTHOL/PHENOL 1 EACH UD MM PRN (21:53)
[2018-05-21] MEDS: MENTHOL/PHENOL 1 EACH UD MM PRN (06:36)
[2018-05-21] MEDS: IBUPROFEN 400 MG TABLET (FP) PO PRN (06:36)
[2018-05-21] MEDS: PRENATAL VITAMINS W/ FOLIC ACID TABLET (FP) PO SCH (10:37)
[2018-05-21] MEDS: DAPSONE 100 MG TABLET PO SCH (10:37)
[2018-05-21] MEDS: ASPIRIN COATED 81 MG TABLET.EC PO SCH (10:37)
[2018-05-21] MEDS: TRIAMCINOLONE ACET 0.1% CREAM 15 GM TUBE TP SCH ×2 (10:37→21:57)
[2018-05-21] MEDS: NAPHAZOLINE/PHENIRAMINE OPHTHALMIC 15 ML BOTTLE OU PRN (10:38)
[2018-05-21] MEDS: THIAMINE HCL 100 MG TABLET (FP) PO SCH (21:57)
[2018-05-22] MEDS: MENTHOL/PHENOL 1 EACH UD MM PRN (06:06)
[2018-05-22] MEDS: NAPHAZOLINE/PHENIRAMINE OPHTHALMIC 15 ML BOTTLE OU PRN (06:06)
[2018-05-22] MEDS: TRIAMCINOLONE ACET 0.1% CREAM 15 GM TUBE TP SCH ×2 (10:22→22:13)
[2018-05-22] MEDS: ASPIRIN COATED 81 MG TABLET.EC PO SCH (10:23)
[2018-05-22] MEDS: PRENATAL VITAMINS W/ FOLIC ACID TABLET (FP) PO SCH (10:23)
[2018-05-22] MEDS: DAPSONE 100 MG TABLET PO SCH (10:23)
[2018-05-22] MEDS: THIAMINE HCL 100 MG TABLET (FP) PO SCH (22:13)
[2018-05-23] MEDS: ASPIRIN COATED 81 MG TABLET.EC PO SCH (10:46)
[2018-05-23] MEDS: DAPSONE 100 MG TABLET PO SCH (10:46)
[2018-05-23] MEDS: PRENATAL VITAMINS W/ FOLIC ACID TABLET (FP) PO SCH (10:46)
[2018-05-23] MEDS: TRIAMCINOLONE ACET 0.1% CREAM 15 GM TUBE TP SCH ×2 (10:47→22:09)
[2018-05-23] MEDS: THIAMINE HCL 100 MG TABLET (FP) PO SCH (22:09)
[2018-05-24] MEDS: DAPSONE 100 MG TABLET PO SCH (11:13)
[2018-05-24] MEDS: PRENATAL VITAMINS W/ FOLIC ACID TABLET (FP) PO SCH (11:13)
[2018-05-24] MEDS: ASPIRIN COATED 81 MG TABLET.EC PO SCH (11:14)
[2018-05-24] MEDS: TRIAMCINOLONE ACET 0.1% CREAM 15 GM TUBE TP SCH ×2 (11:14→22:01)
[2018-05-24] MEDS: THIAMINE HCL 100 MG TABLET (FP) PO SCH (22:00)
[2018-05-25] MEDS: NAPHAZOLINE/PHENIRAMINE OPHTHALMIC 15 ML BOTTLE OU PRN (06:52)
[2018-05-25] MEDS: DAPSONE 100 MG TABLET PO SCH (11:02)
[2018-05-25] MEDS: ASPIRIN COATED 81 MG TABLET.EC PO SCH (11:02)
[2018-05-25] MEDS: TRIAMCINOLONE ACET 0.1% CREAM 15 GM TUBE TP SCH ×2 (11:02→21:54)
[2018-05-25] MEDS: PRENATAL VITAMINS W/ FOLIC ACID TABLET (FP) PO SCH (11:02)
[2018-05-25] MEDS: IBUPROFEN 400 MG TABLET (FP) PO PRN (11:04)
[2018-05-25] MEDS: THIAMINE HCL 100 MG TABLET (FP) PO SCH (21:54)
[2018-05-26] MEDS: TRIAMCINOLONE ACET 0.1% CREAM 15 GM TUBE TP SCH ×2 (10:38→21:49)
[2018-05-26] MEDS: PRENATAL VITAMINS W/ FOLIC ACID TABLET (FP) PO SCH (10:39)
[2018-05-26] MEDS: ASPIRIN COATED 81 MG TABLET.EC PO SCH (10:39)
[2018-05-26] MEDS: DAPSONE 100 MG TABLET PO SCH (10:39)
--- NOTE | 2018-05-26 11:35 | PN ---
S Progress Note Note: PT REPORTS HIS ANTIRETROVIRAL MEDS WERE DELIVERED HERE AND REQUESTING TO RESTART. MEDS TO BE VERIFIED IN [facility]. Vital Signs 05/26/18 07:18 Temperature 98.3 F Pulse Rate 87 Respiratory 18 Rate Blood Pressure 110/85 Laboratory Tests 05/12/18 05/12/18 05/12/18 07:00 07:00 07:00 WBC 2.3 L RBC 4.59 Hgb 11.8 Hct 36.7 MCV 80.1 MCH 25.7 MCHC 32.1 RDW 14.1 Plt Count 176 MPV 10.1 Sodium 141 Potassium 4.4 Chloride 106 Carbon Dioxide 31 Anion Gap 4 L BUN 8 Creatinine 1.2 Creat Clearance w eGFR > 60 Random Glucose 71 L Calcium 9.1 Total Bilirubin 0.6 AST 23 ALT 20 Alkaline Phosphatase 79 Total Protein 7.8 Albumin 3.9 RPR Titer Nonreactive NAD PLAN:RESTART HOME MEDS DIRECTED. FOLLOW UP WITH PCP UPON DISCHARGE FROM REHAB.
[2018-05-26] MEDS ORDERED: EMTRICITABINE/TENOFOV ALAFENAM (DESCOVY) TABLET PO SCH ×3 (13:30→14:23)
[2018-05-26] MEDS: DARUNAVIR 800 MG/COBICISTAT 150MG TABLET PO SCH (14:46)
[2018-05-26] MEDS: EMTRICITABINE/TENOFOV ALAFENAM (DESCOVY) TABLET PO SCH (14:50)
[2018-05-26] MEDS: THIAMINE HCL 100 MG TABLET (FP) PO SCH (21:49)
[2018-05-27] MEDS: NAPHAZOLINE/PHENIRAMINE OPHTHALMIC 15 ML BOTTLE OU PRN (06:54)
[2018-05-27] MEDS: DAPSONE 100 MG TABLET PO SCH (10:21)
[2018-05-27] MEDS: TRIAMCINOLONE ACET 0.1% CREAM 15 GM TUBE TP SCH ×2 (10:21→22:02)
[2018-05-27] MEDS: EMTRICITABINE/TENOFOV ALAFENAM (DESCOVY) TABLET PO SCH (10:22)
[2018-05-27] MEDS: ASPIRIN COATED 81 MG TABLET.EC PO SCH (10:23)
[2018-05-27] MEDS: DARUNAVIR 800 MG/COBICISTAT 150MG TABLET PO SCH (10:23)
[2018-05-27] MEDS: PRENATAL VITAMINS W/ FOLIC ACID TABLET (FP) PO SCH (10:23)
[2018-05-27] MEDS: THIAMINE HCL 100 MG TABLET (FP) PO SCH (22:02)
[2018-05-28] MEDS: NAPHAZOLINE/PHENIRAMINE OPHTHALMIC 15 ML BOTTLE OU PRN (06:30)
[2018-05-28] MEDS: PRENATAL VITAMINS W/ FOLIC ACID TABLET (FP) PO SCH (10:40)
[2018-05-28] MEDS: ASPIRIN COATED 81 MG TABLET.EC PO SCH (10:40)
[2018-05-28] MEDS: EMTRICITABINE/TENOFOV ALAFENAM (DESCOVY) TABLET PO SCH (10:41)
[2018-05-28] MEDS: DAPSONE 100 MG TABLET PO SCH (10:41)
[2018-05-28] MEDS: DARUNAVIR 800 MG/COBICISTAT 150MG TABLET PO SCH (10:42)
[2018-05-28] MEDS: TRIAMCINOLONE ACET 0.1% CREAM 15 GM TUBE TP SCH ×2 (10:42→21:32)
[2018-05-28] MEDS: THIAMINE HCL 100 MG TABLET (FP) PO SCH (21:33)
[2018-05-29] MEDS: DAPSONE 100 MG TABLET PO SCH (11:06)
[2018-05-29] MEDS: TRIAMCINOLONE ACET 0.1% CREAM 15 GM TUBE TP SCH ×2 (11:06→23:50)
[2018-05-29] MEDS: ASPIRIN COATED 81 MG TABLET.EC PO SCH (11:06)
[2018-05-29] MEDS: PRENATAL VITAMINS W/ FOLIC ACID TABLET (FP) PO SCH (11:06)
[2018-05-29] MEDS: DARUNAVIR 800 MG/COBICISTAT 150MG TABLET PO SCH (11:07)
[2018-05-29] MEDS: EMTRICITABINE/TENOFOV ALAFENAM (DESCOVY) TABLET PO SCH (11:07)
[2018-05-29] MEDS: NAPHAZOLINE/PHENIRAMINE OPHTHALMIC 15 ML BOTTLE OU PRN (11:13)
[2018-05-29] MEDS: THIAMINE HCL 100 MG TABLET (FP) PO SCH (23:50)
[2018-05-30] MEDS: TRIAMCINOLONE ACET 0.1% CREAM 15 GM TUBE TP SCH ×2 (11:03→22:00)
[2018-05-30] MEDS: DAPSONE 100 MG TABLET PO SCH (11:04)
[2018-05-30] MEDS: PRENATAL VITAMINS W/ FOLIC ACID TABLET (FP) PO SCH (11:05)
[2018-05-30] MEDS: EMTRICITABINE/TENOFOV ALAFENAM (DESCOVY) TABLET PO SCH (11:05)
[2018-05-30] MEDS: DARUNAVIR 800 MG/COBICISTAT 150MG TABLET PO SCH (11:05)
[2018-05-30] MEDS: ASPIRIN COATED 81 MG TABLET.EC PO SCH (11:06)
[2018-05-30] MEDS ORDERED: PT OWN MED DRAWER 7, Y5N ONE (11:24)
[2018-05-30] MEDS: THIAMINE HCL 100 MG TABLET (FP) PO SCH (22:00)
[2018-05-31] MEDS: NAPHAZOLINE/PHENIRAMINE OPHTHALMIC 15 ML BOTTLE OU PRN (06:38)
[2018-05-31] MEDS: EMTRICITABINE/TENOFOV ALAFENAM (DESCOVY) TABLET PO SCH (10:52)
[2018-05-31] MEDS: DARUNAVIR 800 MG/COBICISTAT 150MG TABLET PO SCH (10:52)
[2018-05-31] MEDS: ASPIRIN COATED 81 MG TABLET.EC PO SCH (10:53)
[2018-05-31] MEDS: PRENATAL VITAMINS W/ FOLIC ACID TABLET (FP) PO SCH (10:53)
[2018-05-31] MEDS: DAPSONE 100 MG TABLET PO SCH (10:56)
[2018-05-31] MEDS: TRIAMCINOLONE ACET 0.1% CREAM 15 GM TUBE TP SCH ×2 (10:57→22:23)
[2018-05-31] MEDS: THIAMINE HCL 100 MG TABLET (FP) PO SCH (22:23)
[2018-06-01] MEDS: NAPHAZOLINE/PHENIRAMINE OPHTHALMIC 15 ML BOTTLE OU PRN (10:24)
[2018-06-01] MEDS: TRIAMCINOLONE ACET 0.1% CREAM 15 GM TUBE TP SCH ×2 (10:24→21:55)
[2018-06-01] MEDS: PRENATAL VITAMINS W/ FOLIC ACID TABLET (FP) PO SCH (10:25)
[2018-06-01] MEDS: DAPSONE 100 MG TABLET PO SCH (10:25)
[2018-06-01] MEDS: DARUNAVIR 800 MG/COBICISTAT 150MG TABLET PO SCH (10:25)
[2018-06-01] MEDS: EMTRICITABINE/TENOFOV ALAFENAM (DESCOVY) TABLET PO SCH (10:25)
[2018-06-01] MEDS: ASPIRIN COATED 81 MG TABLET.EC PO SCH (10:26)
[2018-06-01] MEDS: THIAMINE HCL 100 MG TABLET (FP) PO SCH (21:55)
[2018-06-02] MEDS: NAPHAZOLINE/PHENIRAMINE OPHTHALMIC 15 ML BOTTLE OU PRN (06:08)
[2018-06-02 07:08] VITALS: BP 123/85; PULSE 98; TEMP 99
--- NOTE | 2018-06-02 08:37 | PN ---
[facility] Progress Note Note: PT COMPLETED REHAB AND DISCHARGING TODAY. PT WAS REFERRED TO [facility] FOR POSITIVE CHANGE ON [address] FOR CD AFTERCARE. PT REPORTS HE HAS A PCP DR. OSIRIS TURNER AT [facility] ON [address], [place]. PT CAME IN WITH OWN MEDS AND WILL FOLLOW UP WITH HIS PMD AFTER DISCHARGE FOR MEDICAL MANAGEMENT. Home Medications Medication Instructions Recorded Aspirin [Aspirin EC] 81 mg PO DAILY 05/11/18 Albuterol Sulfate Inhaler - 2 inh PO Q4H PRN #1 inhaler 05/14/18 [Ventolin HFA Inhaler -] Dapsone 100 mg PO DAILY 05/15/18 Triamcinolone 0.1% Cream 1 applic TP BID 05/15/18 [Aristocort 0.1% Cream -] Cyanocobalamin [Vitamin B12 -] 1 tab PO DAILY 05/26/18 Descovy 200-25 mg Tablet (Nf) 200 mg PO DAILY 05/26/18 Prezcobix 800 mg-150 mg Tablet 800 mg PO DAILY 05/26/18 Vital Signs 06/02/18 06/02/18 03:30 07:07 Temperature 99.0 F Pulse Rate 98 H Respiratory 18 18 Rate Blood Pressure 123/85 Laboratory Tests 05/12/18 05/12/18 05/12/18 07:00 07:00 07:00 WBC 2.3 L RBC 4.59 Hgb 11.8 Hct 36.7 MCV 80.1 MCH 25.7 MCHC 32.1 RDW 14.1 Plt Count 176 MPV 10.1 Sodium 141 Potassium 4.4 Chloride 106 Carbon Dioxide 31 Anion Gap 4 L BUN 8 Creatinine 1.2 Creat Clearance w eGFR > 60 Random Glucose 71 L Calcium 9.1 Total Bilirubin 0.6 AST 23 ALT 20 Alkaline Phosphatase 79 Total Protein 7.8 Albumin 3.9 RPR Titer Nonreactive NAD MEDICALLY STABLE PLAN:FOLLOW UP WITH CD AFTERCARE RECOMMENDED ON 06/05/18 @10:00 A.M. FOLLOW UP WITH PCP DR. OSIRIS TURNER WITHIN 1-2 WEEKS AFTER DISCHARGE
[2018-06-02] MEDS: DAPSONE 100 MG TABLET PO SCH (09:53)
[2018-06-02] MEDS: PRENATAL VITAMINS W/ FOLIC ACID TABLET (FP) PO SCH (09:54)
[2018-06-02] MEDS: ASPIRIN COATED 81 MG TABLET.EC PO SCH (09:54)
[2018-06-02] MEDS: DARUNAVIR 800 MG/COBICISTAT 150MG TABLET PO SCH (09:55)
[2018-06-02] MEDS: EMTRICITABINE/TENOFOV ALAFENAM (DESCOVY) TABLET PO SCH (09:56)
[2018-06-02] MEDS: TRIAMCINOLONE ACET 0.1% CREAM 15 GM TUBE TP SCH (10:02)
== END 2018-06-02 10:15 | disposition home or self-care (01) | DRG 895 ==
LOC: YASAS 11:20 → Y3N 14:31 → UNDODISIN 05-14 12:55 → Y5N 05-14 13:21
PROVIDERS: ADMIT Surgery; ATTEND Psychiatry & Neurology Psychiatry
PROC: HZ42ZZZ Group Counseling for Substance Abuse Treatment, Cognitive-Behavioral (ICD-10-PCS; principal; 2018-05-11)
DX: F10.20 Alcohol dependence, uncomplicated (principal); F14.20 Cocaine dependence, uncomplicated; B20 Human immunodeficiency virus [HIV] disease; F12.20 Cannabis dependence, uncomplicated; F41.9 Anxiety disorder, unspecified; I25.2 Old myocardial infarction; Z95.5 Presence of coronary angioplasty implant and graft; D72.819 Decreased white blood cell count, unspecified; J45.909 Unspecified asthma, uncomplicated; Z86.2 Personal history of diseases of the blood and blood-forming organs and certain disorders involving the immune mechanism; Z96.652 Presence of left artificial knee joint; Z88.2 Allergy status to sulfonamides; Z91.013 Allergy to seafood
CPT/HCPCS: 36415; 80053; 85027; 86593